=== PATIENT | male | born 1950 | race Caucasian/White ===

== ENCOUNTER → 2016-09-06 | Outpatient (CLI) | payer MEDICARE ==
[~2016-09-06] MED LIST: ALBU2.5V4 INH; ALPR0.5T7 PO; ALPR0.5T72 PO; ASPI325T32 PO; BENZ100C23 PO; CICL6.6S5 TP; ENOX40DI8 SC; FAMO20TA5 PO; FLUT16SP22 NS; GABA-486 PO; GABA-490 PO; GABA600T2 PO; GEMF600T3 PO; GLYB2.5T4 PO; HYDR1TAB PO; HYDR1TAB85 PO; INSU100V16 SC; INSU100V5 SQ; LACT20SO2 PO; LANS15CA5 PO; LISI-556 PO; LORA10TA7 PO; METF500T4 PO; METO-333 PO; MONT10TA24 PO; PARO20TA5 PO; PARO20TA57 PO; PNT40TEC PO; POTA20TA8 PO; TRAM50TA2 PO
--- NOTE | 2016-09-06 17:28 | Diagnostic Imaging Report ---
EXAMINATION: Bilateral ankle radiographs, three views on each side performed. INDICATION: Fall. Swelling in the right ankle. FINDINGS: The left ankle demonstrates no fracture, dislocation, or radiopaque foreign body. There is significant joint space narrowing seen, compatible with osteoarthritis, perhaps secondary to prior injury or insult. No acute process. The right ankle demonstrates mild degenerative changes. No acute fractures. Preserved configuration of the ankle mortise is seen. Calcaneal spurs are stenosis. IMPRESSION: Bilateral degenerative changes, severe on the left and [id number] on the right side. Correlate for possible prior injury or other insults. Dictated by: Dictated on workstation # [id number]
--- NOTE | 2016-09-06 17:35 | Diagnostic Imaging Report ---
Bilateral knee radiographs. Total six views obtained. INDICATION: Bilateral knee pain. COMPARISON: Right knee of 12/05/2015 and left knee of 12/05/2015 are also obtained. FINDINGS: There has been revision of the total knee arthroplasty on both sides. The left knee demonstrates good alignment of the arthroplasty components. No acute fracture is evident. The patella is absent. There is soft tissue fullness around the left knee. The right knee demonstrates good alignment of the prosthesis with no acute fracture. The patella demonstrates sclerotic changes. Slight suprapatellar fullness could be related to effusion is noted. There is background osteopenia seen in the knees bilaterally. IMPRESSION: Soft tissue fullness around the knees. No acute fracture. Dictated by: Dictated on workstation # [id number]
== END ==
LOC: RAD 13:31
PROVIDERS: ATTEND Registered Nurse
DX: M25.562 Pain in left knee (principal); M25.561 Pain in right knee; M19.071 Primary osteoarthritis, right ankle and foot; M19.072 Primary osteoarthritis, left ankle and foot; X58.XXXA Exposure to other specified factors, initial encounter

== ENCOUNTER → 2016-09-28 | Outpatient (CLI) | payer MEDICARE ==
[2016-09-28 13:49] LABS: ALANINE AMINOTRANSFERASE 13 U/L (0-55); ALBUMIN 4.2 GM/DL (3.2-4.5); ANION GAP 10 MMOL/L (5-14); ASPARTATE AMINO TRANSFERASE 17 U/L (5-34); BILIRUBIN,TOTAL 1.1 MG/DL (0.1-1.0); BLOOD UREA NITROGEN 20 MG/DL (7-18); BUN/CREATININE RATIO 19; CALCIUM 10.1 MG/DL (8.5-10.1); CARBON DIOXIDE 26 MMOL/L (21-32); CHLORIDE 102 MMOL/L (98-107); CHOLESTEROL 200 MG/DL (< 200); CREATININE SERUM 1.06 MG/DL (0.60-1.30); DIRECT LDL 141 MG/DL (1-129); GFR ESTIMATED > 60; GLUCOSE 101 MG/DL (70-105); POTASSIUM 4.7 MMOL/L (3.6-5.0); SODIUM 138 MMOL/L (135-145); TOTAL PROTEIN 8.3 GM/DL (6.4-8.2); TRIGLYCERIDES 116 MG/DL (<150); VLDL CHOLESTEROL 23 MG/DL (5-40)
[2016-09-28 14:08] LABS: MEAN CORPUSCULAR HEMOGLOBIN 31 PG (25-34); MEAN CORPUSCULAR HGB CONC 33 G/DL (32-36); MEAN CORPUSCULAR VOLUME 94 FL (80-99); MEAN PLATELET VOLUME 10.4 FL (7.4-10.4); PLATELET COUNT 387 10^3/uL (130-400); RED BLOOD COUNT 4.02 10^6/uL (4.35-5.85); WHITE BLOOD COUNT 4.8 10^3/uL (4.3-11.0)
[2016-09-28 14:09] LABS: BASOPHILS % (AUTO) 1 % (0-10); EOSINOPHILS # (AUTO) 0.1 10^3/uL (0.0-0.3); EOSINOPHILS % (AUTO) 2 % (0-10); LYMPHOCYTES # (AUTO) 1.4 X 10^3 (1.0-4.0); LYMPHOCYTES % (AUTO) 29 % (12-44); MONOCYTES # (AUTO) 0.4 X 10^3 (0.0-1.0); MONOCYTES % (AUTO) 9 % (0-12); NEUTROPHILS # (AUTO) 2.8 X 10^3 (1.8-7.8); NEUTROPHILS % (AUTO) 59 % (42-75); THYROID STIMULATING HORMONE 1.73 UIU/ML (0.35-4.94)
== END ==
LOC: LAB 12:54
PROVIDERS: ATTEND Family Medicine
DX: I10 Essential (primary) hypertension (principal); E11.9 Type 2 diabetes mellitus without complications; E78.00 Pure hypercholesterolemia, unspecified; D64.9 Anemia, unspecified
CPT/HCPCS: 36415; 80053; 80061; 83036; 84443; 85025

== ENCOUNTER → 2019-03-02 | Outpatient (CLI) | payer MEDICARE ==
[~2019-03-02] MED LIST changes: +BENZ-36 PO; -BENZ100C23 PO; -GEMF600T3 PO; +GEMF600T8 PO; +METF-397 PO; -METF500T4 PO; -TRAM50TA2 PO; +TRM50T PO
== END ==
LOC: CARD 09:57
PROVIDERS: ATTEND Nurse Practitioner Family
DX: I51.7 Cardiomegaly (principal)
CPT/HCPCS: 93306

== ENCOUNTER → 2019-04-13 | Outpatient (CLI) | payer MEDICARE ==
[~2019-04-13] VITALS: Ht 190 cm; Wt 132.0 kg
[~2019-04-13] MED LIST changes: +CATHETER FLUSH 10 ML SYR IV PRN; +REGADENOSON 0.4 MG/5 ML SYR (LEXISCAN) IV ONE
[2019-04-13 09:09] VITALS: BP 133/88
--- NOTE | 2019-04-13 14:52 | STRESS TEST ---
DATE OF SERVICE: 04/13/2019 LEXISCAN MYOVIEW STRESS TEST REPORT REFERRING PHYSICIAN: Dr. Keen. Baseline heart rate is 89, baseline blood pressure 133/88. Baseline EKG is sinus rhythm with left bundle branch block. In summary, the patient was injected with 10.86 mCi of technetium-99 Myoview and the resting images were obtained. Then, the patient received 0.4 mg of Lexiscan followed by 29.8 mCi of technetium-99 Myoview. Throughout the test, there were no EKG changes. The resting and stress images were reviewed and compared in the short axis, horizontal long axis, and vertical long axis views. Review of the images showed fixed defect involving the whole inferior wall, inferior apex, true apex and anteroapical segment. SSS is 43, SDS 5, TID value 1.14. On the gated images, the left ventricle is dilated with diffuse left ventricular hypokinesia, dyskinesia of the apex. Calculated ejection fraction 20%. CONCLUSION: 1. The patient tolerated Lexiscan well. 2. Total infarction of the whole apex, inferior wall, inferoapical segment and anterior apex with no significant reversibility. 3. Dilated left ventricle with diffuse left ventricular hypokinesia, dyskinesia of the apex, calculated ejection fraction 20%. 4. Consider viability study. Job ID: [id number] DocumentID: [id number] Dictated Date: 04/13/2019 12:31:52 Manager Of Construction Date: 04/13/2019 14:52:20 Dictated By: CATALINA ZIMMERMAN MD
== END ==
LOC: CARD 06:55
PROVIDERS: ATTEND Internal Medicine Cardiovascular Disease
DX: I21.9 Acute myocardial infarction, unspecified (principal); I11.0 Hypertensive heart disease with heart failure; I50.9 Heart failure, unspecified; E78.2 Mixed hyperlipidemia; E11.9 Type 2 diabetes mellitus without complications; I25.10 Atherosclerotic heart disease of native coronary artery without angina pectoris
CPT/HCPCS: 78452; 93017

== ENCOUNTER → 2019-04-23 | Outpatient (CLI) | payer MEDICARE ==
[~2019-04-23] MED LIST changes: -REGADENOSON 0.4 MG/5 ML SYR (LEXISCAN) IV ONE
--- NOTE | 2019-04-27 13:54 | STRESS TEST ---
DATE OF SERVICE: 04/23/2019 RESTING AND REDISTRIBUTION STUDY AND VIABILITY STUDY In summary, the patient was injected with 3.21 mCi of thallium-201 and the resting images were obtained, returned 24 hour later with a second injection of 1.07 mCi of thallium-201 and the redistribution study was done. Resting and redistribution study were evaluated and reviewed in three projections. Review of the images showed total infarction of the mid to apical inferior wall, true apex and inferolateral wall with no significant viability. CONCLUSION: Total infarction of the inferior wall, inferior apex, true apex and inferolateral wall with no significant viability. Job ID: [id number] DocumentID: [id number] Dictated Date: 04/27/2019 11:13:05 Fire Sprinkler Inspector Date: 04/27/2019 11:49:04 Dictated By: CATALINA ZIMMERMAN MD
== END ==
LOC: CARD 08:18
PROVIDERS: ATTEND Internal Medicine Cardiovascular Disease
DX: I21.9 Acute myocardial infarction, unspecified (principal); I11.0 Hypertensive heart disease with heart failure; I50.43 Acute on chronic combined systolic (congestive) and diastolic (congestive) heart failure; E11.9 Type 2 diabetes mellitus without complications
CPT/HCPCS: 78452; 93017

== ENCOUNTER 2019-05-06 07:16 | Day surgery (SDC) | payer MEDICARE ==
[2019-05-06] VITALS (10 sets, daily range): BP systolic 100–121; BP diastolic 55–97
[~2019-05-06] VITALS: Ht 190.5 cm; Wt 123.0 kg
[~2019-05-06 07:16] MED LIST changes: -CATHETER FLUSH 10 ML SYR IV PRN
[2019-05-06] MEDS ORDERED: HEParin (CATH LAB) 2,000 ML IV ONE (07:39)
[2019-05-06] MEDS ORDERED: NS IV 1000 ML 1,000 ML ONE (07:39)
[2019-05-06] MEDS ORDERED: LIDOCAINE 1% INJ 20 ML 20 ML VIAL ONE (07:39)
[2019-05-06] MEDS ORDERED: NS IV 1000 ML 1,000 ML IV SCH ×2 (08:45→11:09)
[2019-05-06 08:56] LABS: HEMOGLOBIN 10.9 G/DL (13.3-17.7); RED CELL DISTRIBUTION WIDTH 16.5 % (10.0-14.5)
--- NOTE | 2019-05-06 09:01 | Diagnostic Imaging Report ---
INDICATION: Heart disease. Comparison made with prior examination 10/24/2015 FINDINGS: There is cardiomegaly. The mediastinum is unremarkable. There is no pleural effusion, pneumothorax or pneumonia. IMPRESSION: Cardiomegaly. No acute cardiopulmonary abnormality.. Dictated by: Dictated on workstation # [id number]
[2019-05-06 09:09] LABS: INR 1.2 (0.8-1.4); PROTHROMBIN TIME PATIENT 15.7 SEC (12.2-14.7)
[2019-05-06 09:16] LABS: ALANINE AMINOTRANSFERASE 30 U/L (0-55); ALBUMIN 4.7 GM/DL (3.2-4.5); ALKALINE PHOSPHATASE 81 U/L (40-136); BILIRUBIN,TOTAL 2.3 MG/DL (0.1-1.0); BUN/CREATININE RATIO 16; CALCIUM 9.3 MG/DL (8.5-10.1); CARBON DIOXIDE 27 MMOL/L (21-32); CHLORIDE 105 MMOL/L (98-107); CHOLESTEROL 141 MG/DL (< 200); CREATININE SERUM 1.34 MG/DL (0.60-1.30); GFR ESTIMATED 53; GLUCOSE 109 MG/DL (70-105); HDL CHOLESTEROL 44 MG/DL (40-60); POTASSIUM 4.4 MMOL/L (3.6-5.0); SODIUM 141 MMOL/L (135-145); TOTAL PROTEIN 8.1 GM/DL (6.4-8.2); TRIGLYCERIDES 68 MG/DL (<150); VLDL CHOLESTEROL 14 MG/DL (5-40)
[2019-05-06] MEDS ORDERED: MTP25TSR PO (09:29)
[2019-05-06] MEDS ORDERED: PARO40TA3 PO (09:29)
[2019-05-06] MEDS ORDERED: LANS15CA21 PO (09:29)
[2019-05-06] MEDS ORDERED: SIMV10TA26 PO (09:29)
[2019-05-06] MEDS ORDERED: POTA10TA36 PO (09:29)
[2019-05-06] MEDS ORDERED: METF-399 PO ×2 (09:29→11:10)
[2019-05-06] MEDS ORDERED: GABA-488 PO (09:29)
[2019-05-06] MEDS ORDERED: DIPH25TA65 PO (09:29)
[2019-05-06] MEDS ORDERED: GLUC1TAB20 PO (09:29)
[2019-05-06] MEDS ORDERED: ASPI-983 PO (09:29)
[2019-05-06] MEDS ORDERED: FURO-124 PO (09:29)
[2019-05-06] MEDS ORDERED: CETI10TA20 PO (09:29)
[2019-05-06] MEDS ORDERED: ACET-2267 PO (09:29)
[2019-05-06] MEDS ORDERED: LOSA50TA63 PO (09:29)
[2019-05-06] MEDS ORDERED: METO-333 PO (09:52)
[2019-05-06] MEDS ORDERED: HEParin 1000 UNIT/ML (10ML VIAL) FOR BOLUS ONE (10:15)
[2019-05-06] MEDS ORDERED: VERAPAMIL 5 MG/2 ML (CALAN) VIAL IV ONE (10:15)
[2019-05-06] MEDS ORDERED: MIDAZOLAM 5 MG/5 ML (VERSED) VIAL ONE (10:15)
[2019-05-06] MEDS ORDERED: fentaNYL INJECTION 100 MCG/2 ML AMP ONE (10:15)
[2019-05-06] MEDS ORDERED: NITRO DRIP 25000 MCG/D5W 250 ML IV ONE (10:16)
--- NOTE | 2019-05-06 11:11 | Discharge Inst-Post CATH ---
Discharge Inst-CATH/EP Problems Reviewed?: Yes Post Cardiac Cath/EP D/C Inst Follow Up/Plan appointment with Dr. Noel's office in 2 weeks <b>CARDIAC CATH/EP PROCEDURE DISCHARGE INSTRUCTIONS</b> ACTIVITY * Go Home directly and rest. * Limit activity of the leg (or wrist if it was used) for 7 days including aerobics, swimming, jogging, bicycling, etc. * Restrict stair-climbing for 7 days if possible, if not, climb up with your non-cath leg, then bring together on the same step. * Avoid lifting, pushing, pulling or excessive movement of the affected extremity for 7 days. * Customary sexual activity may be resumed after 2 days-use caution not to use a position that strains or causes pain to the affected extremity. * No driving for 24 hours. * NO SMOKING. * Avoid straining for bowel movements for 7 days. * Gentle walking on level ground is allowed. * Returning to work will depend on the type of procedure and the results. Your doctor will discuss this with you. CALL YOUR DOCTOR FOR ANY OF THE FOLLOWING: *If bleeding from the puncture site occurs- Apply gentle pressure to site with clean cloth and call your doctor or EMS. * If a knot or lump forms under the skin, increases in size, or causes pain. * If bruising appears to be worsening or moving further down your leg instead of disappearing. * Temperature above 101 F. CARE OF YOUR GROIN INCISION; * Bruising or purple discoloration of the skin near the puncture site is common. * You may shower only, no bathtub bathing for 5 days. Be careful to avoid slipping as your leg may feel stiff. * If a closure device was used on your femoral artery, please see the attached guide regarding care of the device and your leg. * Leave dressing on FOR 24 hours. CARE OF YOUR WRIST INCISION; * Bruising or purple discoloration of the skin near the puncture site is common. * You may shower. * DO NOT submerge wrist. * Leave dressing on FOR 24 hours. CATALINA NOEL MD May 06, 2019 11:11
--- NOTE | 2019-05-06 11:14 | Cardiac Procedure Note-CS/ASA ---
Pre-Procedure Note Pre-Op Procedure Note H&P Reviewed The H&P was reviewed, patient examined and no changes noted. Date H&P Reviewed: May 06, 2019 Time H&P Reviewed: 10:00 Conscious Sedation Pre-Proced Time 10:00 ASA Score 3 For ASA 3 and 4: Consider anesthesia and medical clearance. Also, for patients with a history of failed moderate sedation consider anesthesia. Airway Lungs Heart ASA score ASA 1: a normal healthy patient ASA 2: a patient with a mild systemic disease (mid diabetes, controlled hypertension, obesity x ASA 3: a patient with a severe systemic disease that limits activity (angina, COPD, prior Myocardial infarction) ASA 4: a patient with an incapacitating disease that is a constant threat to life (CHF, renal failure) ASA 5: a moribund patient not expected to survive 24 hrs. (ruptured aneurysm) ASA 6: a declared brain- patient whose organs are being harvested. For emergent operations, add the letter E after the classification Mallampati Classification Grade 3 Sedation Plan Analgesia, Amnesia, Plan communicated to team members, Discussed options with patient/fam, Discussed risks with patient/fam The patient is an appropriate candidate to undergo the planned procedure, sedation, and anesthesia. The patient immediately re-assessed prior to indication. CATALINA ZIMMERMAN MD May 06, 2019 11:14
[2019-05-06] MEDS ORDERED: PARO20TA5 PO (11:34)
--- NOTE | 2019-05-06 11:35 | NUR ---
SPOKE WITH THE PT (HE HAD A MED LIST) WELL GETTING A LIST FROM [facility] TO COMPLETE THE MED REC. THE FOLLOWING ARE FILL DATES FROM [facility]: 02-08-2019 SIMVASTATIN 10MG #90/90DS 02-09-2019 PAROXETINE 20MG #90/90DS 03-09-2019 METOPROLOL TART #45/90DS 04-02-2019 GABAPENTIN 300MG #270/90DS 04-22-2019 METFORMIN 1000NG #60/30DS 04-22-2019 LOSARTAN 50MG #30/30DS 04-27-2019 LASIX 40MG #30/30DS 04-27-2019 POTASSIUM CHL 10MG ER #60/30DS OTC MEDS: ASPIRIN ZYRTEC BENADRYL PREVACID GLUCOSAMINE
--- NOTE | 2019-05-06 11:39 | Cardiac Cath Report ---
Cardiac Cath Report Physician (s)/Yard Truck Driver (s) Physician CATALINA ZIMMERMAN MD Pre-Procedure Diagnosis Pre-Procedure Diagnosis: coronary artery disease Post-Procedure Note Procedure Start Date: May 06, 2019 Name of Procedure: left heart catheterization Findings/Procedure Note PROCEDURE NOTE: 69-year-old gentleman with severe cardiomyopathy, ischemic in nature, had an abnormal stress test with total infarction of the inferior wall with no significant reversibility or viability. Due to the severe cardiomyopathy I decided to proceed with cardiac catheterization possible PTCA. After explaining the procedure to the patient, all pros and cons were explained, all questions were answered. The patient signed the consent and then he was placed on the cardiac catheterization laboratory. Groin was prepped SL fashion local anesthesia was used. Sheath placed in the right radial artery, [place] catheter was advanced to the left ventricular cavity, pulled back and did coronary angiogram then it was removed At the end of the procedure the sheath was removed. vascular band was used FINDINGS: Hemodynamics LV 101/26, end-diastolic pressure of 26 Aorta 96/61 and mean of 75 ANATOMY: Left Main has moderate stenosis proximally Left Anterior Descending is heavily calcified and totally occluded proximally Left Circumflex is large dominant artery with 60-70 percent stenosis at the midportion giving collaterals to the LAD and to the right coronary artery Right Coronory Artery is large dominant artery totally occluded proximally getting filled by collaterals from the circumflex system LV Gram was not done, pressure was measured CONCLUSION: 1. Total occlusion of the LAD, heavily calcified artery not getting much collaterals 2. Total occlusion of the large dominant right coronary artery that is getting filled by collaterals from the circumflex system 3. Moderate stenosis at the ostial left main, 60-70 percent stenosis in the mid circumflex artery that is large artery giving collaterals to the right coronary system DISCUSSION AND RECOMMENDATION: maximize medical therapy then I will arrange for him to have evaluation at a tertiary care center for possible MAINTENANCE AND CUSTODIAN SUPERVISOR intervention on the right coronary artery to provide sufficient backup and intervention on the circumflex artery in addition to maximizing medical therapy Anesthesia Type: Conscious Sedation Estimated blood loss (mL): 20 ml Contrast Amount: 78 ml Total Radiation Dose: 940 mGy Post-Procedure Diagnosis Post-operative diagnosis: congestive heart failure, chronic compensated left ventricular systolic dysfunction, ischemic cardiomyopathy Coronary artery disease Hypertension Hyperlipidemia CATALINA ZIMMERMAN MD May 06, 2019 11:38
== END 2019-05-06 15:10 | disposition home or self-care (01) ==
LOC: CATH 07:16 → CSD 11:32 → CATH 15:10
PROVIDERS: ATTEND Internal Medicine Cardiovascular Disease
DX: I25.10 Atherosclerotic heart disease of native coronary artery without angina pectoris (principal); I65.23 Occlusion and stenosis of bilateral carotid arteries; I50.22 Chronic systolic (congestive) heart failure; I25.2 Old myocardial infarction; I11.0 Hypertensive heart disease with heart failure; E78.2 Mixed hyperlipidemia; E11.9 Type 2 diabetes mellitus without complications; Z88.8 Allergy status to other drugs, medicaments and biological substances; Z79.82 Long term (current) use of aspirin; Z79.84 Long term (current) use of oral hypoglycemic drugs; Z79.899 Other long term (current) drug therapy
CPT/HCPCS: 36415; 71045; 80053; 80061; 85027; 85610; 85730; 87081; 93458

== ENCOUNTER → 2019-05-21 | Outpatient (CLI) | payer MEDICARE ==
[~2019-05-21] MED LIST changes: +ACET-2267 PO; +ASPI-983 PO; +CETI10TA21 PO; +DIPH25TA65 PO; +FURO-124 PO; +GABA-488 PO; +GLUC1TAB20 PO; +LANS15CA21 PO; +LOSA50TA63 PO; +METF-399 PO; -MONT10TA24 PO; +MONT10TA26 PO; +MTP25TSR PO; +PARO40TA3 PO; +POTA10TA36 PO; +SIMV10TA26 PO
== END ==
LOC: CARD 07:36
PROVIDERS: ATTEND Internal Medicine Cardiovascular Disease
DX: I08.1 Rheumatic disorders of both mitral and tricuspid valves (principal); E78.2 Mixed hyperlipidemia; I11.0 Hypertensive heart disease with heart failure; E11.9 Type 2 diabetes mellitus without complications; I25.10 Atherosclerotic heart disease of native coronary artery without angina pectoris; I50.9 Heart failure, unspecified
CPT/HCPCS: 93306

== ENCOUNTER → 2019-06-22 | Outpatient (CLI) | payer MEDICARE | LOC: CARD 09:36 | PROVIDERS: ATTEND Physician Assistant | DX: I25.10 Atherosclerotic heart disease of native coronary artery without angina pectoris (principal); I11.0 Hypertensive heart disease with heart failure; I50.22 Chronic systolic (congestive) heart failure; E11.9 Type 2 diabetes mellitus without complications; E78.2 Mixed hyperlipidemia; I07.1 Rheumatic tricuspid insufficiency | CPT/HCPCS: 93306 ==

== ENCOUNTER → 2019-08-13 | Outpatient (CLI) | payer MEDICARE | LOC: CARD 12:31 | PROVIDERS: ATTEND Internal Medicine Cardiovascular Disease | DX: I50.22 Chronic systolic (congestive) heart failure (principal); I34.0 Nonrheumatic mitral (valve) insufficiency | CPT/HCPCS: 93306 ==

== ENCOUNTER → 2019-08-19 | Outpatient (CLI) | payer MEDICARE | LOC: LABNPT 09:03 | PROVIDERS: ATTEND Physician Assistant | DX: Z01.812 Encounter for preprocedural laboratory examination (principal); Z11.59 Encounter for screening for other viral diseases ==

== ENCOUNTER 2019-08-26 07:03 | Day surgery (SDC) | payer MEDICARE ==
[2019-08-26] VITALS (13 sets, daily range): BP systolic 92–117; BP diastolic 54–76
[~2019-08-26] VITALS: Ht 190.5 cm; Wt 115.9 kg
--- OUTSIDE RECORDS SUMMARY | 2019-08-26 07:07 | XMS REPORT | Clinical Summary ---
Author Author [facility] Organization [facility] Address Unknown Phone Unavailable Care Team Providers Care Prepared Foods Service Team Member Name Role Phone Nhan Keen MD PCP Source Comments Some departments are not documenting in the electronic medical record. If you d o not see the information that you expected, contact Release of Information in doctors hospital [facility] Information Management department at [phone] for further assistan ce in locating additional records.[facility] Allergies Comments Active Allergy Reactions Severity Noted Date Rash all over body - sand paper like red rash started 2 days after taking doxycycline and resolved w/ discontinuing . No anaphylaxis. Doxycycline RASH Medium 05/18/2016 Medications End Date Status Medication Sig Dispensed Refills Start Date Active gabapentin (NEURONTIN) Take 100 mg 0 100 mg capsule by mouth three times daily. Active cetirizine (ZYRTEC) 10 mg Take 10 mg by 0 tablet mouth every morning. Active metoprolol XL (TOPROL XL) Take 12.5 mg 0 25 mg extended release by mouth at tablet bedtime daily. Active PARoxetine (PAXIL) 20 mg Take 20 mg by 0 tablet mouth daily. Active potassium chloride SR Take 10 mEq 0 (K-DUR) 10 mEq tablet by mouth daily. Take with a meal and a full glass of water. Active gemfibrozil (LOPID) 600 Take 600 mg 0 mg tablet by mouth twice daily. Active ALPRAZolam (XANAX) 0.5 mg Take 0.5 mg 0 tablet by mouth twice daily as needed for Anxiety. Active ferrous sulfate (FEOSOL, Take 325 mg 0 FEROSUL) 325 mg (65 mg by mouth iron) tablet daily. Take on an empty stomach at least 1 hour before or 2 hours after food. Active lansoprazole(+) DR Take 15 mg by 0 (PREVACID) 15 mg capsule mouth daily 30 minutes before breakfast. Active lisinopril (PRINIVIL; Take 5 mg by 0 ZESTRIL) 5 mg tablet mouth daily. Active docusate (COLACE) 100 mg Take 1 Cap by 180 Cap 3 capsule mouth twice 6 daily. Use while taking pain medications. Hold if you are having loose stools Active acetaminophen (TYLENOL) Take 325 mg 0 325 mg tablet by mouth every 4 hours as needed for Pain. Active aspirin EC 325 mg tablet Take 1 Tab by 90 Tab 3 mouth daily. 7 Hold until off lovenox injections Take with food. Active Lactobacillus rhamnosus Take 1 Cap by 0 GG (LACTOBACILLUS mouth as RHAMNOSUS (GG)) 15 directed billion cell cpSP daily with breakfast. Active metFORMIN (GLUCOPHAGE) Take 1,000 mg 0 1,000 mg tablet by mouth twice daily with meals. Active nystatin (MYCOSTATIN) Apply 0 100,000 unit/g topical topically to cream affected area twice daily. 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 Immunizations Name Administration Dates Next Due Pneumococcal 04/23/2016 Vaccine(13-[facility]/immunocompromised adult) Family History Medical History Relation Name Comments Cancer Father Arthritis-rheumatoid Mother Stroke Mother Relation Name Status Comments Brother Alive Brother Father Mother Sister Alive Social History Date Tobacco Use Types Packs/Day Years Used Quit: 12/08/1982 Former Smoker 1 15 Smokeless Tobacco: Former Chew User Tobacco Cessation: Counseling Given: Yes Comments: chewed for 2 years after he quit smoking Drinks/Week oz/Week Comments Alcohol Use 0 Standard drinks or equivalent 0.0 rarely Yes Sex Assigned at Date Recorded Not on file Industry Job Start Date Occupation Not on file Not on file Not on file Travel End Travel History Travel Start No recent travel history available. Last Filed Vital Signs Reading Time Taken Comments Vital Sign 115/77 09/21/2016 9:43 AM CDT Blood Pressure 78 09/21/2016 9:43 AM CDT Pulse 36.6 C (97.9 F) 07/07/2016 5:12 AM CDT Temperature 16 08/21/2016 1:05 PM CDT Respiratory Rate 100% 08/21/2016 1:05 PM CDT Oxygen Saturation - - Inhaled Oxygen Concentration 101.6 kg (224 lb) 09/21/2016 9:43 AM CDT Weight 190.5 cm (6' 3") 09/21/2016 9:43 AM CDT Height 28 09/21/2016 9:43 AM CDT Body Mass Index Plan of Treatment Health Maintenance Due Date Last Done Comments MEDICARE ANNUAL WELLNESS 1950 VISIT DILATED EYE EXAM 01/13/1966 DTAP/TDAP VACCINES (1 - 01/13/1966 Tdap) FOOT EXAM 01/13/1966 HEPATITIS C SCREENING 01/13/1966 MICROALBUMIN 01/13/1966 PHYSICAL (COMPREHENSIVE) 01/13/1966 EXAM COLORECTAL CANCER 01/13/1998 SCREENING SHINGLES RECOMBINANT 01/13/1998 VACCINE (1 of 2) ABDOMINAL AORTIC ANEURYSM 01/13/2013 SCREENING HBA1C 10/04/2016 04/06/2016, 02/10/2016, 12/09/2015 PNEUMONIA (PPSV23) 04/23/2017 04/23/2016 VACCINE (2 of 2 - PPSV23) INFLUENZA VACCINE 12/24/2019 Implants Device Identifier Shelf Expiration Date Model / Serial / L ot Implanted Type Area Manufactur er 07/22/2017 [id number] / [id number] / [id number] Cement Bone Smartset Gentamicin Left: Knee J and J 40gm High Viscosity HEALTHCARE Implanted: Qty: 4 on 12/13/2015 by : Derian Childs MD at [facility] 07/22/2017 [id number] / [id number] / [id number] Cement Bone Smartset Gentamicin Right: Knee J and J 40gm High Viscosity HEALTHCARE Implanted: Qty: 4 on 12/13/2015 by : Derian Childs MD at [facility] 06/22/2020 [id number] / SEAN / [id number] Component Femoral 74x56.3x11.5mm Left: Knee OSTE OREMED Remedy Gentamicin Pmma [employer] Implanted: Qty: 1 on 12/13/2015 by Derian Tabares MD at [facility] 06/22/2020 RKTBLG / [id number] / [id number] Component Tibial [id number] 14mm Left: Knee OSTE OREMED Remedy Gentamicin Pmma 8.8 [employer] Implanted: Qty: 1 on 12/13/2015 by Derian Tabares MD at [facility] RKFMLG / [id number] / [id number] Component Femoral 74x56.3x11.5mm Right: Knee OSTE OREMED Remedy Gentamicin [employer] Implanted: Qty: 1 on 12/13/2015 by Derian Tabares MD at [facility] 06/22/2020 RKTBLG / [id number] / [id number] Component Tibial [id number] 14mm Right: Knee OSTE OREMED Remedy Gentamicin Pmma 8.8 [employer] Implanted: Qty: 1 on 12/13/2015 by Derian Tabares MD at [facility] 05/22/2025 [id number] / N/A / [id number] Stem Femoral 75mm 24mm Press Fit Right: Knee DEPU Y [place] Flute Knee [employer] Implanted: Qty: 1 on 04/20/2016 by Derian Tabares MD at [facility] 02/21/2026 [id number] / N/A / [id number] Sleeve Tibial 53mm Mbt Knee Porous Right: Knee Ja ndJ:DEPU Revision Y:DEPUY Implanted: Qty: 1 on 04/20/2016 by ORTHOPEDIC Derian Tabares MD at [facility] 11/22/2025 [id number] / N/A / [id number] Tray Tibial 80.6x53.1x4.8mm Mbt 5 Right: Knee [place] dJ:DEPU Knee Cemented Revision Y:DEPUY Implanted: Qty: 1 on 04/20/2016 by ORTHOPEDIC Derian Tabares MD at [facility] 01/22/2026 [id number] / N/A / [id number] Sleeve Adapter 46mm [place] Knee Right: Knee Ja ndJ:DEPU Femoral Fully Porous Vvc Y:DEPUY Implanted: Qty: 1 on 04/20/2016 by ORTHOPEDIC Derian Tabares MD at [facility] 10/22/2017 [id number] / N/A / [id number] Insert Tibial Medium [place] 21mm Right: Knee J andJ:DEPU Knee Hinge Lps Y:DEPUY Implanted: Qty: 1 on 04/20/2016 by ORTHOPEDIC Derian Tabares MD at [facility] 12/22/2017 [id number] / N/A / [id number] Cement Bone Smartset Gentamicin Right: Knee J and J 40 High Viscosity HEALTHCARE Implanted: Qty: 3 on 04/20/2016 by : Derian Childs MD at [facility] 09/21/2020 [id number] / N/A / [id number] Femoral Rotating Hinge Cemented; Right: Knee Jand J:DEPU Right Medium Y:DEPUY Implanted: Qty: 1 on 04/20/2016 by ORTHOPEDIC Derian Tabares MD at [facility] 11/22/2021 [id number] / N/A / [id number] Stem Femoral 75mm 24mm Press Fit Right: Knee DEPU Y [place] Flute Knee [employer] Implanted: Qty: 1 on 04/20/2016 by Derian Tabares MD at [facility] 02/21/2018 [id number] / NA / [id number] Cement Bone Smartset Gentamicin Left: Knee J and J 40 High Viscosity HEALTHCARE Implanted: Qty: 3 on 06/14/2016 by : Derian Childs MD at [facility] 04/24/2026 [id number] / NA / [id number] Tray Tibial 74.9x49.3x4.8mm Mbt 4 Left: Knee [place] dJ:DEPU Knee Cemented Revision Y:DEPUY Implanted: Qty: 1 on 06/14/2016 by ORTHOPEDIC Derian Tabares MD at [facility] 01/22/2025 [id number] / NA / [id number] Sleeve Adapter 46mm [place] Knee Left: Knee Ja ndJ:DEPU Femoral Fully Porous Vvc Y:DEPUY Implanted: Qty: 1 on 06/14/2016 by ORTHOPEDIC Derian Tabares MD at [facility] 08/21/2018 [id number] / NA / [id number] Component Femoral 6d Medium [id number] Left: Knee D EPUY Knee Left Rotate Hinge [employer] Implanted: Qty: 1 on 06/14/2016 by Derian Tabares MD at [facility] 03/24/2026 [id number] / NA / [id number] Stem Femoral 75mm 24mm Press Fit Left: Knee DEPU Y [place] Flute Knee [employer] Implanted: Qty: 1 on 06/14/2016 by Derian Tabares MD at [facility] 03/24/2026 [id number] / NA / [id number] Stem Femoral 75mm 24mm Press Fit Left: Knee DEPU Y [place] Flute Knee [employer] Implanted: Qty: 1 on 06/14/2016 by Derian Tabares MD at [facility] 01/22/2026 [id number] / NA / [id number] Sleeve Tibial 53mm Mbt Knee Porous Left: Knee Ja ndJ:DEPU Revision Y:DEPUY Implanted: Qty: 1 on 06/14/2016 by ORTHOPEDIC Derian Tabares MD at [facility] 10/21/2018-312 / NA / [id number] Tibial Insert Hinge Medium 12mm Left: Knee Depuy Implanted: Qty: 1 on 06/14/2016 by Orthopedic Derian Tabares MD at [facility] Results Not on filefrom Last 3 Months Insurance Type Payer Benefit Subscriber ID Effective Phone Address Plan / Dates Group Medicare MEDICARE MEDICARE xxxxxxxxxx 2004- PART A AND Present B [facility] xxxxxxxxxx 06/18/2016 - [place] /[facility] [address] [facility] (Home) [facility] [place] [phone] Advance Directives Patient Family Service Counselor Explanation Type Date Recorded Perceptive Content Scan Advance 07/05/2016 12:49 PM Directive/DPOA Date Inactivated Comments Code Status Date Activated 07/07/2016 3:40 PM Full Code 07/05/2016 5:35 PM Provider has discussed Code Status No, more discussi on w/Patient or Family? needed 06/17/2016 1:26 PM Full Code 06/14/2016 8:25 PM Provider has discussed Code Status No, more discussi on w/Patient or Family? needed 04/23/2016 5:55 PM Full Code 04/20/2016 6:50 PM Provider has discussed Code Status No, discussion no t w/Patient or Family? necessary based on Dx 12/20/2015 2:56 PM Full Code 12/13/2015 4:32 PM Provider has discussed Code Status No, more discussi on w/Patient or Family? needed
--- OUTSIDE RECORDS SUMMARY | 2019-08-26 07:09 | XMS REPORT ---
Author Author Fernando MUÑOZ Organization [facility] Address [address] [place] [address] Care Team Providers Care Optician Apprentice Name Role Phone SHAYY MUÑOZ Unavailable PROBLEMS Type Condition ICD9-CM Code [id number] Code Onset Dates Condition S tatus SNOMED Code Problem Type 2 diabetes mellitus without complications E11 .9 Active 25333646 Problem 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 E78.2 Active 668110653 Problem Chronic osteomyelitis M86.60 Active 84823909 Problem Wheel chair as ambulatory aid Z99.3 Active 531397315 Problem Chronic pain syndrome G89.4 Active 575368275 Problem Essential hypertension I10 Active 75010374 Problem Status post total bilateral knee replacement Z96.6 53 Active [id number] Problem Incontinence of feces, unspecified fecal incontinence type R15.9 Active [id number] ALLERGIES No Information ENCOUNTERS Encounter Location Date Diagnosis [facility] [address] [facility] [id number] [address] [place] [phone] Oct, [facility] [address] [facility] [id number] [address] [place] [phone] Sep, Type 2 diabetes mellitus wit hout complications E11.9 ; 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 E78.2 ; Essential hypertension I10 and Incontinence of feces, unspecified fecal incontinence type R15.9 [facility] [address] [facility] [id number] [address] [place] [phone] Sep, [facility] [address] [facility] [id number] [address] [place] [phone] Aug, [facility] [address] [facility] [id number] [address] [place] [phone] Aug, [facility] [address] [facility] [id number] [address] [place] [phone] July, [facility] [address] [place] [id number] [address] [place] [phone] July, [facility] [address] [facility] [id number] [address] [place] [phone] July, [facility] [address] [facility] [id number] [address] [place] [phone] May, Type 2 diabetes mellitus wit hout complications E11.9 ; Chronic pain syndrome G89.4 ; Incontinence of feces, unspecified fecal incontinence type R15.9 and 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 E78.2 [facility] [address] [facility] [id number] [address] [place] [phone] May, [facility] [address] [place] [id number] [place] [phone] May, [facility] [address] [place] [id number] [place] [phone] Apr, [facility] [address] [place] [id number] [address] [place] [phone] Mar, [facility] [address] [place] [id number] [address] [place] [phone] Jan, 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 E78.2 ; Type 2 diabetes mellitus without complications E11.9 ; 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 and Essential hypertension I10 [place] [address] [place] [id number] [place] [phone] Dec, 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 E78.2 ; 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 ; Type 2 diabetes mellitus without complications E11.9 ; Essential hypertension I10 and Encounter for immunization Z23 [facility] [address] [facility] [id number] [address] [place] [phone] Dec, [facility] [address] [place] [id number] [place] [phone] 10 May, 2016 Candidiasis of scrotum B37.4 9 [facility] [address] [place] [id number] [place] [phone] 07 May, 2016 Candidiasis of scrotum B37.4 9 [facility] [address] [facility] [id number] [address] [place] [address] May, Tinea cruris B35.[address] [facility] hitis J40 IMMUNIZATIONS No Known Immunizations SOCIAL HISTORY Never Assessed REASON FOR VISIT repository PLAN OF CARE VITAL SIGNS MEDICATIONS Medication Instructions Dosage Frequency Start Date End Date Duration S tatus Metformin HCl 1000 MG Orally Twice a day 1 tablet with meals 12h 56 days Active RESULTS No Results PROCEDURES No Known procedures INSTRUCTIONS MEDICATIONS ADMINISTERED No Known Medications MEDICAL (GENERAL) HISTORY Type Description Date Medical History diabetes - does not check BS Medical History HTN Medical History osteoarthritis Medical History GERD Medical History Rheumatoid Arthritis Medical History hyperlipidemia Medical History Anxiety disorder Medical History depression Medical History obesity Medical History Chronic back pain Surgical History Bilateral Total Knee Replacements 2001 Surgical History Back Surgery 2001 Surgical History 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
--- OUTSIDE RECORDS SUMMARY | 2019-08-26 07:09 | XMS REPORT ---
Author Author Fernando MUÑOZ Organization [facility] Address [address] [place] [address] Care Team Providers Care Snuff Grinder And Screener Name Role Phone SHAYY MUÑOZ Unavailable PROBLEMS Type Condition ICD9-CM Code JUS65-EJ Code Onset Dates Condition S tatus SNOMED Code Problem Type 2 diabetes mellitus without complications E11 .9 Active 65534957 Problem 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 E78.2 Active 361077938 Problem Chronic osteomyelitis M86.60 Active 73747226 Problem Wheel chair as ambulatory aid Z99.3 Active 030324197 Problem Chronic pain syndrome G89.4 Active 139304627 Problem Essential hypertension I10 Active 30423192 Problem Status post total bilateral knee replacement Z96.6 53 Active 7029765902850 Problem Incontinence of feces, unspecified fecal incontinence type R15.9 Active 81998439 ALLERGIES No Information ENCOUNTERS Encounter Location Date Diagnosis [facility] [address] [facility] [id number] [address] [place] [phone] Oct, [facility] [address] [facility] [id number] [address] [place] [phone] Sep, Type 2 diabetes mellitus wit hout complications E11.9 ; 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 E78.2 ; Essential hypertension I10 and Incontinence of feces, unspecified fecal incontinence type R15.9 [facility] [address] [facility] [id number] [address] [place] [phone] Sep, [facility] [address] [facility] [id number] [address] [place] [phone] Aug, [facility] [address] [facility] [id number] [address] [place] [phone] Aug, [facility] [address] [facility] [id number] [address] [place] [phone] July, [facility] [address] [place] [id number] [address] [place] [phone] July, [facility] [address] [facility] [id number] [address] [place] [phone] July, [facility] [address] [facility] [id number] [address] [place] [phone] May, Type 2 diabetes mellitus wit hout complications E11.9 ; Chronic pain syndrome G89.4 ; Incontinence of feces, unspecified fecal incontinence type R15.9 and 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 E78.2 [facility] [address] [facility] [id number] [address] [place] [phone] May, [facility] [address] [place] [id number] [place] [phone] May, [facility] [address] [place] [id number] [place] [phone] Apr, [facility] [address] [place] [id number] [address] [place] [phone] Mar, [facility] [address] [place] [id number] [address] [place] [phone] Jan, 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 E78.2 ; Type 2 diabetes mellitus without complications E11.9 ; emt intermediate current use of insulin Z79.4 and Essential hypertension I10 [place] [address] [place] [id number] [place] [phone] Dec, 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 E78.2 ; emt intermediate current use of insulin Z79.4 ; Type 2 diabetes mellitus without complications E11.9 ; Essential hypertension I10 and Encounter for immunization Z23 [facility] [address] [facility] [id number] [address] [place] [phone] Dec, [facility] [address] [place] [id number] [place] [phone] 10 May, 2016 Candidiasis of scrotum B37.4 9 [facility] [address] [place] [id number] [place] [phone] 07 May, 2016 Candidiasis of scrotum B37.4 9 [facility] [address] [facility] [id number] [address] [place] [address] May, Tinea cruris B35.6 and [facility] hitis J40 IMMUNIZATIONS No Known Immunizations SOCIAL HISTORY Never Assessed REASON FOR VISIT medication refill PLAN OF CARE VITAL SIGNS MEDICATIONS Medication Instructions Dosage Frequency Start Date End Date Duration S tatus Lisinopril 5 mg Orally Once a day 1 tablet 24h 30 da ys Active RESULTS No Results PROCEDURES No Known [...]
--- OUTSIDE RECORDS SUMMARY | 2019-08-26 07:09 | XMS REPORT ---
Author Author Fernando MUÑOZ Organization [facility] Address [address] [place] [address] Care Team Providers Care Toxics Program Officer Name Role Phone SHAYY MUÑOZ Unavailable PROBLEMS Type Condition ICD9-CM Code QAL91-VE Code Onset Dates Condition S tatus SNOMED Code Problem Chronic pain syndrome G89.4 Active 747552045 Problem Incontinence of feces, unspecified fecal incontinence type R15.9 Active 54276242 Problem Status post total bilateral knee replacement Z96.6 53 Active 1170539351806 Problem Systolic CHF, chronic I50.22 Active 358973636 Problem BMI 38.0-38.9,adult Z68.38 Active 785524258 Problem Essential hypertension I10 Active 14993383 Problem Wheezes R06.2 Active 73052066 Problem 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 E78.2 Active 409855746 Problem Wheel chair as ambulatory aid Z99.3 Active 292135341 Problem Chronic osteomyelitis M86.60 Active 41866275 Problem Type 2 diabetes mellitus wit h other specified complication, without long-term current use of insulin E11.69 Active 06079190 Problem Symptoms of depression F32.9 Active 693213011 ALLERGIES No Information ENCOUNTERS Encounter Location Date Diagnosis [facility] [address] [id number] [place] [address] Apr, [facility] [address] [id number] [place] [address] Mar, [place] [address] [place] [address] Mar, Chronic cough R05 ; Systolic CHF, chronic I50.22 ; Essential hypertension I10 ; Wheel chair as ambulatory aid Z99.3 and BMI 38.0- 38.9,adult Z68.38 [facility] [address] [facility] [id number] [address] [place] [address] Feb, Cough R05 [place] [address] [address] Feb, Cough R05 and Atypical pneumonia J18.9 [place] [address] [address] Feb, [place] [address] [address] Feb, Symptoms of depression F32.9 [place] [address] [place] [address] Feb, Shortness of breath R06.02 ; Systolic CH F, chronic I50.22 ; Essential hypertension I10 and BMI 38.0-38.9,adult Z68.38 [place] [address] [address] Feb, [address] [id number] Feb, [place] [address] [address] Jan, Symptoms of depression F32.9 [place] [address] [address] Jan, Shortness of breath R06.02 ; Lower extre mity edema R60.0 ; Essential hypertension I10 and Type 2 diabetes mellitus with other specified complication, without long-term current use of insulin E11.69 [place] [address] [address] Jan, Essential hypertension I10 [place] [address] [address] Dec, Essential hypertension I10 and Type 2 di abetes mellitus with other specified complication, without long-term current use of insulin E11.69 [place] [address] [address] Dec, [place] [address] [address] Dec, [place] [address] [address] Nov, Type 2 diabetes mellitus with other spec ified complication, without long-term current use of insulin E11.69 and Encounter for immunization Z23 [place] [address] [address] Sep, Wound of left foot S91.302A [place] [address] [address] Sep, Wound of left foot S91.302A and Type 2 d iabetes mellitus with other specified complication, without long-term current use of insulin E11.69 [place] [address] [address] July, Cough R05 [place] [address] [address] July, [place] [address] [address] July, Type 2 diabetes mellitus with other spec ified complication, without long-term current use of insulin E11.69 ; 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 E78.2 and Left hand pain M79.642 [place] [address] [address] May, [place] [address] [address] Apr, [place] [address] [address] Apr, [place] [address] [address] Apr, [place] [address] [address] Mar, Chronic osteomyelitis M86.60 ; S/p total knee replacement, bilateral Z96.653 ; Incontinence of feces, unspecified fecal incontinence type R15.9 and Chronic pain syndrome G89.4 [place] [address] [address] Mar, [facility] [address] [place] [id number] [place] [address] Mar, [facility] [address] [address] Mar, [facility] [address] [place] [id number] [place] [address] Feb, Chronic osteomyelitis M86.60 ; Status po st total bilateral knee replacement Z96.653 ; Incontinence of feces, unspecified fecal incontinence type R15.9 and Chronic pain syndrome G89.4 [facility] [address] [address] Feb, [facility] [address] [address] Jan, Encounter for immunization Z23 [facility] [address] [address] Nov, [facility] [address] [address] Oct, [facility] [address] [address] Sep, Type 2 diabetes mellitus without complic ations E11.9 ; 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 E78.2 ; Essential hypertension I10 and Incontinence of feces, unspecified fecal incontinence type R15.9 [facility] [address] [address] Sep, [facility] [address] [address] Aug, [facility] [address] [address] Aug, [facility] [address] [address] July, [facility] [address] [address] July, [facility] [address] [address] July, [place] [address] [address] May, Type 2 diabetes mellitus without complic ations E11.9 ; Chronic pain syndrome G89.4 ; Incontinence of feces, unspecified fecal incontinence type R15.9 and 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 E78.2 [place] [address] [address] May, [place] [address] [address] May, [place] [address] [address] Apr, [place] [address] [address] Mar, [place] [address] [address] Jan, 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 E78.2 ; Type 2 diab etes mellitus without complications E11.9 ; emt intermediate current use of insulin Z79.4 and Essential hypertension I10 [place] [address] [address] Dec, 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 E78.2 ; 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 [address] [place] [id number] [address] [place] [address] May, Candidiasis of scrotum B37.[address] [facility] [address] [place] [phone] May, Candidiasis of scrotum B37.[address] [facility] [address] [place] [address] May, Tinea cruris B35.6 and [facility] hitis J40 IMMUNIZATIONS No Known Immunizations SOCIAL HISTORY Never Assessed REASON FOR VISIT Refill Request PLAN OF CARE VITAL SIGNS MEDICATIONS Medication Instructions Dosage Frequency Start Date End Date Duration S yesica Lisinopril 5 mg Orally Once a day 1 tablet 24h 90 da ys Active RESULTS No Results PROCEDURES No Known procedures INSTRUCTIONS MEDICATIONS ADMINISTERED No Known Medications MEDICAL (GENERAL) HISTORY Type Description Date Medical History diabetes - does not check BS Medical History HTN Medical History osteoarthritis Medical History GERD Medical History Rheumatoid Arthritis Medical History hyperlipidemia Medical History Anxiety disorder Medical History depression Medical History obesity Medical History Chronic back pain Medical History CHF Surgical History Bilateral Total Knee Replacements 2002 Surgical History Back Surgery 2001 Surgical History 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
--- OUTSIDE RECORDS SUMMARY | 2019-08-26 07:09 | XMS REPORT ---
Author Author Fernando MUÑOZ Organization [facility] Address [address] [place] [address] Care Team Providers Care Prepared Foods Service Team Member Name Role Phone SHAYY MUÑOZ Unavailable PROBLEMS Type Condition ICD9-CM Code CIC78-QO Code Onset Dates Condition S tatus SNOMED Code Problem Type 2 diabetes mellitus without complications E11 .9 Active 68434714 Problem 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 E78.2 Active 745322071 Problem Chronic osteomyelitis M86.60 Active 64098439 Problem Wheel chair as ambulatory aid Z99.3 Active 824255462 Problem Chronic pain syndrome G89.4 Active 118460331 Problem Essential hypertension I10 Active 73469136 Problem Status post total bilateral knee replacement Z96.6 53 Active 5110704432864 Problem Incontinence of feces, unspecified fecal incontinence type R15.9 Active 97682018 ALLERGIES No Information ENCOUNTERS Encounter Location Date Diagnosis [place] [address] [place] [address] Feb, [place] [address] [place] [id number] [place] [address] Feb, [place] [address] [place] [id number] [place] [address] Jan, Encounter for immunization Z 23 [place] [id number] [facility] [id number] [address] [place] [address] Nov, [place] [address] [place] [id number] [place] [address] Oct, [place] [address] [place] [id number] [place] [address] Sep, Type 2 diabetes mellitus wit hout complications E11.9 ; 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 E78.2 ; Essential hypertension I10 and Incontinence of feces, unspecified fecal incontinence type R15.9 [place] [address] [id number] [address] [place] [phone] Sep, [facility] [address] [id number] [address] [place] [phone] Aug, [facility] [address] [id number] [address] [place] [address] Aug, [facility] [address] [id number] [address] [place] [address] July, [facility] [address] [id number] [address] [place] [address] July, [facility] [address] [id number] [address] [place] [address] July, [facility] [address] [facility] [id number] [address] [place] [address] May, Type 2 diabetes mellitus wit hout complications E11.9 ; Chronic pain syndrome G89.4 ; Incontinence of feces, unspecified fecal incontinence type R15.9 and 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 E78.2 [facility] [address] [facility] [id number] [address] [place] [phone] May, [facility] [address] [facility] [id number] [address] [place] [address] May, [facility] [address] [id number] [address] [place] [address] Apr, [facility] [address] [id number] [address] [place] [phone] Mar, [facility] [address] [facility] [id number] [address] [place] [address] Jan, 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 E78.2 ; Type 2 diabetes mellitus without complications E11.9 ; intermediate current use of insulin Z79.4 and Essential hypertension I10 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 [address] [facility] [id number] [address] [place] [address] Dec, [facility] [address] [place] [id number] [place] [phone] 10 May, 2016 Candidiasis of scrotum B37.4 9 [facility] [address] [place] [address] May, Candidiasis of scrotum B37.4 9 [facility] [address] [facility] [id number] [address] [place] [address] May, Tinea cruris B35.6 and [facility] hitis J40 IMMUNIZATIONS No Known Immunizations SOCIAL HISTORY Never Assessed REASON FOR VISIT Eligibility PLAN OF CARE VITAL SIGNS MEDICATIONS Unknown Medications RESULTS No Results PROCEDURES No Known procedures [...]
--- OUTSIDE RECORDS SUMMARY | 2019-08-26 07:09 | XMS REPORT ---
Author Author Fernando MUÑOZ Organization [facility] Address [address] [place] [address] Care Team Providers Care Air Sampler Name Role Phone SHAYY MUÑOZ Unavailable PROBLEMS Type Condition ICD9-CM Code YGR76-CC Code Onset Dates Condition S tatus SNOMED Code Problem Type 2 diabetes mellitus without complications E11 .9 Active 39618948 Problem 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 E78.2 Active 064213838 Problem Chronic osteomyelitis M86.60 Active 24448672 Problem Wheel chair as ambulatory aid Z99.3 Active 756082183 Problem Chronic pain syndrome G89.4 Active 406187287 Problem Essential hypertension I10 Active 52331710 Problem Status post total bilateral knee replacement Z96.6 53 Active 7706082011132 Problem Incontinence of feces, unspecified fecal incontinence type R15.9 Active [id number] ALLERGIES No Information ENCOUNTERS Encounter Location Date Diagnosis [facility] [address] [facility] [id number] [address] [place] [phone] Oct, [facility] [address] [facility] [id number] [address] [phone] Sep, Type 2 diabetes mellitus wit hout complications E11.9 ; 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 E78.2 ; Essential hypertension I10 and Incontinence of feces, unspecified fecal incontinence type R15.9 [facility] [address] [facility] [id number] [address] [phone] Sep, [facility] [address] [facility] [id number] [address] [phone] Aug, [facility] [address] [facility] [id number] [address] [phone] Aug, [facility] [address] [facility] [id number] [address] [phone] July, [facility] [address] [place] [id number] [address] [phone] July, [facility] [address] [facility] [id number] [address] [place] [phone] July, [facility] [address] [facility] [id number] [address] [phone] May, Type 2 diabetes mellitus wit hout complications E11.9 ; Chronic pain syndrome G89.4 ; Incontinence of feces, unspecified fecal incontinence type R15.9 and 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 E78.2 [facility] [address] [facility] [id number] [address] [phone] May, [facility] [address] [place] [id number] [place] [phone] May, [facility] [address] [place] [id number] [place] [phone] Apr, [facility] [address] [place] [id number] [address] [place] [phone] Mar, [facility] [address] [place] [id number] [address] [phone] Jan, 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 E78.2 ; Type 2 diabetes mellitus without complications E11.9 ; 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 and Essential hypertension I10 [place] [address] [place] [id number] [place] [phone] Dec, 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 E78.2 ; 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 ; Type 2 diabetes mellitus without complications E11.9 ; Essential hypertension I10 and Encounter for immunization Z23 [facility] [address] [facility] [id number] [address] [place] [phone] Dec, [facility] [address] [place] [id number] [place] [phone] 10 May, 2016 Candidiasis of scrotum B37.4 9 [facility] [address] [place] [id number] [place] [phone] 07 May, 2016 Candidiasis of scrotum B37.4 9 [facility] [address] [facility] [id number] [address] [place] [address] May, Tinea cruris B35.6 and [facility] hitis J40 IMMUNIZATIONS No Known Immunizations SOCIAL HISTORY Never Assessed REASON FOR VISIT Refill request PLAN OF CARE VITAL SIGNS MEDICATIONS Medication Instructions Dosage Frequency Start Date End Date Duration S tatus Gemfibrozil 600 MG Orally Twice a day 1 tablet 12h Active RESULTS No Results PROCEDURES No Known [...]
--- OUTSIDE RECORDS SUMMARY | 2019-08-26 07:09 | XMS REPORT ---
Author Author Fernando MUÑOZ Organization [facility] Address [address] [place] [address] Care Team Providers Care Dianetic Counselor Name Role Phone SHAYY MUÑOZ Unavailable PROBLEMS Type Condition ICD9-CM Code OER48-FM Code Onset Dates Condition S tatus SNOMED Code Problem Type 2 diabetes mellitus without complications E11 .9 Active 11451256 Problem 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 E78.2 Active 528407216 Problem Chronic osteomyelitis M86.60 Active 14679954 Problem Wheel chair as ambulatory aid Z99.3 Active 020575281 Problem Chronic pain syndrome G89.4 Active 599424277 Problem Essential hypertension I10 Active 50300618 Problem Status post total bilateral knee replacement Z96.6 53 Active 8147288781600 Problem Incontinence of feces, unspecified fecal incontinence type R15.9 Active [id number] ALLERGIES No Information ENCOUNTERS Encounter Location Date Diagnosis [facility] [address] [facility] [id number] [address] [place] [phone] Oct, [facility] [address] [facility] [id number] [address] [place] [phone] Sep, Type 2 diabetes mellitus wit hout complications E11.9 ; 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 E78.2 ; Essential hypertension I10 and Incontinence of feces, unspecified fecal incontinence type R15.9 [facility] [address] [facility] [id number] [address] [place] [phone] Sep, [facility] [address] [facility] [id number] [address] [place] [phone] Aug, [facility] [address] [facility] [id number] [address] [place] [phone] Aug, [facility] [address] [facility] [id number] [address] [place] [phone] July, [facility] [address] [place] [id number] [address] [place] [phone] July, [facility] [address] [facility] [id number] [address] [place] [phone] July, [facility] [address] [facility] [id number] [address] [place] [phone] May, Type 2 diabetes mellitus wit hout complications E11.9 ; Chronic pain syndrome G89.4 ; Incontinence of feces, unspecified fecal incontinence type R15.9 and 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 E78.2 [facility] [address] [facility] [id number] [address] [place] [phone] May, [facility] [address] [place] [id number] [place] [phone] May, [facility] [address] [place] [id number] [place] [phone] Apr, [facility] [address] [place] [id number] [address] [place] [phone] Mar, [facility] [address] [place] [id number] [address] [place] [phone] Jan, 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 E78.2 ; Type 2 diabetes mellitus without complications E11.9 ; superintendent terminal current use of insulin Z79.4 and Essential hypertension I10 [place] [address] [place] [id number] [place] [phone] Dec, 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 E78.2 ; superintendent terminal current use of insulin Z79.4 ; Type 2 diabetes mellitus without complications E11.9 ; Essential hypertension I10 and Encounter for immunization Z23 [facility] [address] [facility] [id number] [address] [place] [phone] Dec, [facility] [address] [place] [id number] [place] [phone] 10 May, 2016 Candidiasis of scrotum B37.4 9 [facility] [address] [place] [id number] [place] [phone] 07 May, 2016 Candidiasis of scrotum B37.4 9 [facility] [address] [facility] [id number] [address] [place] [address] May, Tinea cruris B35.6 and [facility] hitis J40 IMMUNIZATIONS No Known Immunizations SOCIAL HISTORY Never Assessed REASON FOR VISIT Requests return call PLAN OF CARE VITAL SIGNS MEDICATIONS Unknown [...]
--- OUTSIDE RECORDS SUMMARY | 2019-08-26 07:09 | XMS REPORT ---
Author Author Fernando MUÑOZ Organization [facility] Address [address] [place] [address] Care Team Providers Care Continuing Education Director Name Role Phone SHAYY MUÑOZ Unavailable PROBLEMS Type Condition ICD9-CM Code LYE27-HO Code Onset Dates Condition S tatus SNOMED Code Problem Type 2 diabetes mellitus without complications E11 .9 Active 42128904 Problem 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 E78.2 Active 904881491 Problem Chronic osteomyelitis M86.60 Active 66384839 Problem Wheel chair as ambulatory aid Z99.3 Active 414009010 Problem Chronic pain syndrome G89.4 Active 117926350 Problem Essential hypertension I10 Active 10636254 Problem Status post total bilateral knee replacement Z96.6 53 Active 6856171092214 Problem Incontinence of feces, unspecified fecal incontinence type R15.9 Active 07352552 ALLERGIES No Information ENCOUNTERS Encounter Location Date Diagnosis [facility] [address] [facility] [id number] [address] [place] [phone] Oct, [facility] [address] [facility] [id number] [address] [place] [phone] Sep, Type 2 diabetes mellitus wit hout complications E11.9 ; 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 E78.2 ; Essential hypertension I10 and Incontinence of feces, unspecified fecal incontinence type R15.9 [facility] [address] [facility] [id number] [address] [place] [phone] Sep, [facility] [address] [facility] [id number] [address] [place] [phone] Aug, [facility] [address] [facility] [id number] [address] [place] [phone] Aug, [facility] [address] [facility] [id number] [address] [place] [phone] July, [facility] [address] [place] [id number] [address] [place] [phone] July, [facility] [address] [facility] [id number] [address] [place] [phone] July, [facility] [address] [facility] [id number] [address] [place] [phone] May, Type 2 diabetes mellitus wit hout complications E11.9 ; Chronic pain syndrome G89.4 ; Incontinence of feces, unspecified fecal incontinence type R15.9 and 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 E78.2 [facility] [address] [facility] [id number] [address] [place] [phone] May, [facility] [address] [place] [id number] [place] [phone] May, [facility] [address] [place] [id number] [place] [phone] Apr, [facility] [address] [place] [id number] [address] [place] [phone] Mar, [facility] [address] [place] [id number] [address] [place] [phone] Jan, 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 E78.2 ; Type 2 diabetes mellitus without complications E11.9 ; long term current use of insulin Z79.4 and Essential hypertension I10 [place] [address] [place] [id number] [place] [phone] Dec, 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 E78.2 ; long term current use of insulin Z79.4 ; Type 2 diabetes mellitus without complications E11.9 ; Essential hypertension I10 and Encounter for immunization Z23 [facility] [address] [facility] [id number] [address] [place] [phone] Dec, [facility] [address] [place] [id number] [place] [phone] 10 May, 2016 Candidiasis of scrotum B37.[address] [facility] [address] [place] [id number] [place] [phone] 07 May, 2016 Candidiasis of scrotum B37.4 9 [facility] [address] [facility] [id number] [address] [place] [address] May, Tinea cruris B35.6 and [facility] hitis J40 IMMUNIZATIONS No Known Immunizations SOCIAL HISTORY Never Assessed REASON FOR VISIT refill request PLAN OF CARE VITAL SIGNS MEDICATIONS Medication Instructions Dosage Frequency Start Date End Date Duration S tatus Paxil 20 mg Orally Once a day 1 tablet in the morning 24h Active RESULTS No Results PROCEDURES No Known [...]
--- OUTSIDE RECORDS SUMMARY | 2019-08-26 07:09 | XMS REPORT ---
Author Author [email or web address] [email or web address] [facility] Address [address] [address] Care Team Providers Care Children'S Tutor Name Role Phone EVELYN VAUGHN Unavailable GAULT, SHAYY Unavailable GAULT, SHAYY Unavailable GAULT, SHAYY Unavailable GAULT, SHAYY Unavailable GAULT, SHAYY Unavailable GAULT, SHAYY Unavailable GAULT, SHAYY Unavailable GAULT, SHAYY Unavailable GAULT, SHAYY Unavailable GAULT, SHAYY Unavailable GAULT, SHAYY Unavailable GAULT, SHAYY Unavailable GAULT, SHAYY Unavailable GAULT, SHAYY Unavailable GAULT, SHAYY Unavailable GAULT, SHAYY Unavailable GAULT, SHAYY Unavailable KENNEY MELLO Unavailable GAULT, SHAYY Unavailable GAULT, SHAYY Unavailable Unavailable CHUCKY CAREY Unavailable Unavailable ZENAIDA RICHARDSON MD Unavailable Unavailable MARY BETH LOYOLA Unavailable Unavailable MARY BETH LOYOLA Unavailable Unavailable MARY BETH LOYOLA Unavailable Unavailable GAULT, SHAYY Unavailable ZENAIDA RICHARDSON Unavailable Unavailable ZENAIDA RICHARDSON Unavailable Unavailable ZENAIDA RICHARDSON Unavailable Unavailable CHUCKY CAREY Unavailable Unavailable KEN SALAZAR MD Unavailable Unavailable KEN SALAZAR MD Unavailable Unavailable VICENTE RAJAN CATRACHITO Unavailable Unavailable VICENTE RAJAN CATRACHITO Unavailable Unavailable ZENAIDA RICHARDSON MD Unavailable Unavailable NICHOLAS HEATON DIRECTOR [employer]PORATE SALES Unavailable Unavailable JOLIE RAJAN, JUAN K Unavailable Unavailable ERASMO GARCIA, CATALINA Acuna Unavailable Unavailable SHAYY MUÑOZ Unavailable Unavailable Unavailable EVER CALDERON Unavailable Unavailab le Unavailable Unavailable Unavailable Unavailable Unavailable Unavailable Unavailable Unavailable Unavailable Unavailable Unavailable Unavailable Allergies Normalized Allergy Reported Date of Reaction(s) Care Provider Facility Allergy Type classification allergen Allergy Onset Drug Allergy Doxycycline Doxycycline UNKNOWN ZENAIDA RICHARDSON [facility] (8 sources.) [facility] ([address]31) DA (6 Unclassified No Known Drug 11-17-2011 - no information CHUCKY AURELIO Not Available sources.) Allergies (80979) Drug Allergy sacubitril sacubitril 05-06-2019 - no information CEM BARRERA Via (24 sources.) DO [facility] (68094) Drug Allergy Angiotensin 2 valsartan 05-06-2019 - no information CEM BARRERA Via (24 sources.) Receptor DO [facility] Blockers (ARB) [facility] (77692) Medications Medication Ingredient Drug Dose Dates Status Sig Sig Care Class(es) (Normalized) (Original) Provid er aspirin 81 aspirin Nonsteroida 81 mg Active no Aspir-81 81 no mg delayed Translation l information MG Orally name release s: [ Anti-inflam Once a day 1 oral tablet Aspir-81 81 matory Drug tablet 24h (1 source.) MG] Active diphenhydrA diphenhydrA Histamine-1 50 mg Active no Benadryl 50 no MINE MINE Receptor information mg by oral name hydrochlori Antagonist route PRN 1 de 50 mg tablet oral tablet Active (3 sources.) Active no Benadryl no name inform Active ation Problems Active Problems Problem Normalized Date Last Normalized Normalized Provider Fa cility Classification Problem(s) Recorded Problem Problem Sta tus Duration Other bone Acquired 08-19-2019 - Episodic Active CEM SELLERS Via disease and absence of MD Mota musculoskelmayra other right Hospital - l deformities toe(s) [place] (4 sources.) (83130) Acute and Acute kidney 08-19-2019 - Episodic Active CATRACHITO VALENCIA VC Via unspecified failure, DO [facility] renal failure unspecified Hospital - (8 sources.) [place] (41805) Acute Acute 08-19-2019 - Chronic Active CATALINA ZIMMERMAN , [facility] Via myocardial myocardial [facility] infarction (7 infarction, Hospital - sources.) unspecified [place] (21406) Acute Acute 08-19-2019 - Episodic Active CATRACHITO ZHANG , [facility] Via posthemorrhagi posthemorrhagi DO [place] cho anemia (8 c anemia Hospital - sources.) [place] (80050) Other Aftercare 08-19-2019 - Chronic Active KEN SALAZAR , [facility] Via aftercare (4 following MD Mota sources.) joint Hospital - replacement [place] surgery (32933) Allergic Allergy status 08-19-2019 - Episodic Active CATALINA RUTH , [facility] Via reactions (5 to other MD [facility]ota sources.) drugs, Hospital - medicaments [place] and biological (10582) substances status Deficiency and Anemia in 08-19-2019 - Chronic Active CATRACHITO GONZALES , [facility] Via other anemia other chronic DO Mota (8 sources.) diseases Hospital - [facility] elsewhere (06897) Deficiency and Anemia, 08-19-2019 - Episodic Active KEN BAUMANN , [facility] Via other anemia unspecified [facility] (14 sources.) Hospital - [place] (85302) Anxiety Anxiety 08-19-2019 - Chronic Active KEN SALAZAR , [facility] Via disorders (4 disorder, MD [facility]ota sources.) unspecified Hospital - [place] (20700) Coronary Atheroscleroti 08-19-2019 - Chronic Active CATALINA RUTH , [facility] Via atherosclerosi c heart MD [place] wright and other disease of Hospital - heart disease [facility] (22 sources.) coronary (82630) artery without angina pectoris Translations: [ OLD MYOCARDIAL INFARCTION] External cause Bathroom of 08-19-2019 - Episodic Active JUAN ESCALERA , DO [facility] Via codes: Place single-family [place] of occurrence (private) Hospital - (4 sources.) house as the [place] place of (20622) occurrence of the external cause Other Body mass Chronic Active SHAYYGhostruck [facility] nutritional; index (BMI) 24116 [facility] endocrine; and 38.0-38.9, of [place] metabolic adult [place] (79599) disorders (2 Translations: sources.) [ - BMI 38.0-38.9,adul t Z68.38] Other Body mass Chronic Active MentiNova [facility] nutritional; index 30+ - [address] [facility] endocrine; and obesity of [facility] metabolic Translations: [place] (15685) disorders (1 [ BMI source.) 38.0-38.9,adul t] Other and Cardiomegaly 08-19-2019 - Chronic Active NICHOLAS [facility] Via ill-defined [place] HEATON heart disease [facility] - (4 sources.) [place] (88455) Chronic Chronic 08-19-2019 - Chronic Active CATRACHITO ZHANG [facility] Via obstructive obstructive DO [facility] pulmonary pulmonary [facility] - disease and disease, [place] bronchiectasis unspecified (00499) (8 sources.) Infective Chronic 08-19-2019 - Chronic Active CATRACHITOHayley ZHANG [facility] Via arthritis and osteomyelitis DO [facility] osteomyelitis Translations: Hospital - (except that [ Chronic [place] caused by osteomyelitis, (77672) tuberculosis Chronic or sexually osteomyelitis, transmitted - Chronic disease) (21 osteomyelitis sources.) M86.60, OTHER CHRONIC OSTEOMYELITIS, RIGHT ANKLE] Unclassified Chronic pain Episodic Active SHAYY GAULT Comm unity (14 sources.) syndrome [address] [facility] Translations: [facility] [ Chronic pain [place] (96811) syndrome, Chronic pain syndrome] Other nervous Chronic pain Chronic Active SHAYY [employer] Com munity system syndrome [address] [place] [address] Center disorders (16 Translations: of [facility] sources.) [ - Chronic [place] (27524) pain syndrome G89.4, - Chronic pain syndrome G89.4] Other Constipation, 08-19-2019 - Episodic Active KEN LOPEZ N , [facility] Via gastrointestin unspecified MD [facility] al disorders Hospital - (4 sources.) [place] (30765) Superficial Contusion of 08-19-2019 - Episodic Active JUAN BROWN O , DO [facility] Via injury; unspecified [place] contusion (16 part of head, Hospital - sources.) initial [place] encounter (85634) Translations: [ CONTUSION OF LEFT KNEE, INITIAL ENCOUNTE, CONTUSION OF RIGHT KNEE, INITIAL ENCOUNT, CONTUSION OF LEFT SHOULDER, INITIAL ENCO] Other lower Cough 08-19-2019 - Episodic Active CATRACHITO VICENTE [facility] Via respiratory Translations: DO [place] disease (13 [ - Cough R05, Hospital - sources.) - Chronic [place] cough R05] (62530) Unclassified Dependence on Chronic Active SHAYY GAULT Com munity (15 sources.) wheelchair [address] [facility] Translations: of [facility] [ Wheel chair [place] (42845) as ambulatory aid, Wheel chair as ambulatory aid, - Wheel chair as ambulatory aid Z99.3] Conditions Dizziness and 08-19-2019 - Episodic Active JUAN STEPHANIE O , DO [facility] Via associated giddiness [place] with dizziness Hospital - or vertigo (4 [place] sources.) (12424) External cause Exposure to 08-19-2019 - Episodic Active KATHRY N AURELIO [facility] Via codes: other [place] Natural/enviro specified Hospital - nment (4 factors, [place] sources.) initial (07295) encounter External cause Fall on same 08-19-2019 - Episodic Active JUAN JOLIE , DO [facility] Via codes: Fall (4 level from [facility] sources.) slipping, Hospital - tripping and [place] stumbling (06748) without subsequent striking against object, initial encounter Unclassified Finding no information Active Sossee mungoBalto (2 sources.) related to [address] [place] [address] ability to of [facility] mobilize using [place] (00912) wheelchair Translations: [ Wheel chair as ambulatory aid] Genitourinary Frequency of 08-19-2019 - Episodic Active KEN BARROS , [facility] Via symptoms and micturition [facility] ill-defined Hospital - conditions (4 [place] sources.) (68508) Other Full Episodic Active [facility] gastrointestin incontinence [address] [place] [address] al disorders of feces of [facility] (20 sources.) Translations: [place] (44000) [ - Incontinence of feces, unspecified fecal incontinence type R15.9, - Incontinence of feces, unspecified fecal incontinence type R15.9] Esophageal Gastro-esophag 08-19-2019 - Chronic Active CATRACHITO DALEY , [facility] Via disorders (12 eal reflux DO [facility] sources.) disease Hospital - without [place] esophagitis (43520) Congestive Heart failure, 08-19-2019 - Chronic Active SHAYY WEEMS [facility] heart failure; unspecified [address] [place] [address] nonhypertensiv Translations: of [facility] e (23 [ - Systolic [place] (65977) sources.) CHF, chronic I50.22, Systolic CHF, chronic, ACUTE ON CHRONIC COMBINED SYSTOLIC AND D] Other History of [facility] connective total knee 24037 [facility] tissue disease arthroplasty of [facility] (16 sources.) (situation) [place] (24379) Translations: [ Status post total bilateral knee replacement, Status post total bilateral knee replacement] Fluid and Hypo-osmolalit 08-19-2019 - Episodic Active CATRACHITO GA RNER , [facility] Via electrolyte y and DO [place] disorders (20 hyponatremia Hospital - sources.) Translations: [place] [ HYPOKALEMIA, (90483) ACIDOSIS, HYPO-OSMOLALIT Y AND HYPONATREMIA] Other Hypomagnesemia 08-19-2019 - Chronic Active CATRACHITO GAR NER , [facility] Via nutritional; DO [place] endocrine; and Hospital - metabolic [place] disorders (8 (39891) sources.) Complication Infection and 08-19-2019 - Episodic Active CATRACHITO ZHANG , [facility] Via of device; inflammatory DO [place] implant or reaction due Hospital - graft (8 to internal [place] sources.) left knee (00499) prosthesis, initial encounter Complication Infection and 08-19-2019 - Episodic Active CATRACHITO ZHANG , [facility] Via of device; inflammatory DO [place] implant or reaction due Hospital - graft (8 to internal [place] sources.) right knee (96639) prosthesis, initial encounter Other Knee joint Chronic Active MARY BETH LOYOLA Not Av ailable connective replacement (18731) tissue disease (3 sources.) Residual Localized Episodic Active [facility] codes; edema 15081 [facility] unclassified Translations: of [facility] (1 source.) [ - Lower [place] (96367) extremity edema R60.0] Other homeopathic doctor 08-19-2019 - Episodic Active JUAN DAVE , DO [facility] Via aftercare (9 (current) use [place] sources.) of aspirin Hospital [facility] (25806) Other homeopathic doctor 08-19-2019 - Episodic Active CATALINA ZIMMERMAN , [facility] Via aftercare (5 (current) use MD [facility]ota sources.) of oral Hospital - hypoglycemic [place] drugs (55075) Mood disorders Major 08-19-2019 - Chronic Active CATRACHITO GAR NER , [facility] Via (15 sources.) depressive DO [place] disorder, Hospital - single [place] episode, (91225) unspecified Translations: [ Symptoms of depression, - Symptoms of depression F32.9] Other nervous Metabolic 08-19-2019 - Chronic Active CATRACHITO GAR NER , [facility] Via system encephalopathy DO [place] disorders (8 Hospital - sources.) [place] (13469) Substance-rela Nicotine 08-19-2019 - Chronic Active KEN BAUMANN , [facility] Via ken disorders dependence, MD [facility] (4 sources.) cigarettes, Hospital - uncomplicated [place] (55053) Residual Obstructive 08-19-2019 - Chronic Active CATRACHITO ZHANG , [facility] Via codes; sleep apnea DO [place] unclassified (adult) Hospital - (8 sources.) (pediatric) [place] (82871) Occlusion or Occlusion and 08-19-2019 - Chronic Active CATALINA ZIMMERMAN , [facility] Via stenosis of stenosis of MD [facility] precerebral bilateral Hospital - arteries (5 carotid [place] sources.) arteries (58290) External cause Other external 08-19-2019 - Episodic Active DONELL DAVE DO [facility] Via codes: cause status [place] Unspecified (4 Hospital - sources.) [place] (95134) Other Other long 08-19-2019 - Episodic Active Maricruz BROWN [facility] Via aftercare (9 term (current) [place] sources.) drug therapy Hospital - [place] (40448) Rheumatoid Other 08-19-2019 - Chronic Active KEN SAALZAR , [facility] Via arthritis and specified [facility] related rheumatoid Hospital - disease (20 arthritis, [place] sources.) left hand (29575) Translations: [ RHEUMATOID ARTHRITIS, UNSPECIFIED JUVENILE RHEUMATOID ARTHRITIS OF UNSPECIFIED SITE, RHEUMATOID ARTHRITIS, UNSPECIFIED] Infective Other 08-19-2019 - Episodic Active CATRACHITO ZHANG , [facility] Via arthritis and streptococcal DO [place] osteomyelitis arthritis, Hospital - (except that left knee [place] caused by Translations: (24188) tuberculosis [ OTHER or sexually STREPTOCOCCAL transmitted ARTHRITIS, disease) (16 RIGHT KNE] sources.) Other Pain in left Episodic Active SHAYY Nagel ty connective hand [address] [facility] tissue disease Translations: of [place] (2 sources.) [ - Left hand [place] (16810) pain M79.642] Other Pain in left 08-19-2019 - Episodic Active CHUCKY HEIDI RA [facility] Via non-traumatic knee [facility] joint Hospital - disorders (7 [place] sources.) (47547) Other Pain in right 08-19-2019 - Episodic Active CHUCKY FL ORA [facility] Via non-traumatic knee [facility] joint Hospital - disorders (7 [place] sources.) (37017) Screening and Personal 08-19-2019 - Episodic Active CATRACHITO LYON ER , [facility] Via history of history of [facility] mental health nicotine Hospital - and substance dependence [place] abuse codes (8 (98346) sources.) Pneumonia Pneumonia, Episodic Active SHAYY MUÑOZ Community (except that unspecified [address] [facility] caused by organism of [place] tuberculosis Translations: [place] (99643) or sexually [ - Atypical transmitted pneumonia disease) (1 J18.9] source.) Other nervous Polyneuropathy 08-19-2019 - Chronic Active KEN SALAZAR [facility] Via system , unspecified [facility] disorders (4 Hospital - sources.) [place] (86190) Complications Postprocedural 08-19-2019 - Episodic Active KEN SALAZAR [facility] Via of surgical fever MD Mota procedures or Hospital - medical care [place] (4 sources.) (42119) Other Presence of 08-19-2019 - Chronic Active KEN SALAZAR [facility] Via connective artificial MD [place] tissue disease knee joint, [facility] - (8 sources.) bilateral [place] Translations: (97708) [ - Status post total bilateral knee replacement Z96.653, - S/p total knee replacement, bilateral Z96.653] Other Presence of 08-19-2019 - Chronic Active CATRACHITO ZHANG , [facility] Via connective left DO [place] tissue disease artificial Hospital - (12 sources.) knee joint [place] (66228) Other Presence of 08-19-2019 - Chronic Active JUAN JOLIE , DO [facility] Via connective right [place] tissue disease artificial Hospital - (7 sources.) knee joint [place] (94218) Osteoarthritis Primary 08-19-2019 - Chronic Active JUAN JOLIE , DO [facility] Via (18 sources.) osteoarthritis [place] , right ankle Hospital - and foot [place] Translations: (67824) [ PRIMARY OSTEOARTHRITIS , LEFT ANKLE AND F, PRIMARY OSTEOARTHRITIS , LEFT SHOULDER] Heart valve Rheumatic 08-19-2019 - Chronic Active CATRACHITO RUSSO R , [facility] Via disorders (17 disorders of DO [place] sources.) both mitral Hospital - and tricuspid [place] valves (59162) Translations: [ RHEUMATIC TRICUSPID INSUFFICIENCY, NONRHEUMATIC MITRAL (VALVE) INSUFFICIENC] Septicemia Sepsis due to 08-19-2019 - Episodic Active CATRACHITO CAMERON RNER , [facility] Via (except in Methicillin DO [place] labor) (16 resistant Hospital - sources.) Staphylococcus [place] aureus (81768) Translations: [ SEPSIS DUE TO STREPTOCOCCUS, GROUP B] Shock (8 Severe sepsis 08-19-2019 - Episodic Active CATRACHITO SONALI ER , [facility] Via sources.) with septic DO [facility] shock Hospital [facility] (95325) Other lower Shortness of Episodic Active SHAYY MUÑOZ Commu nity respiratory breath [address] [facility] disease (2 Translations: of [facility] sources.) [ - Shortness [place] () of breath R06.02] Bacterial Streptococcus, 08-19-2019 - Episodic Active CATRACHITO NISHA SIGALAER , [facility] Via infection; group B, as DO [facility] unspecified the cause of Hospital - site (8 diseases [place] sources.) classified (37085) elsewhere Diabetes Type 2 08-19-2019 - Chronic Active CATRACHITO ZHANG , [facility] Via mellitus with diabetes DO [facility] complications mellitus with Hospital - (15 sources.) other [place] specified (94653) complication Translations: [ - Type 2 diabetes mellitus with other specified complication, without long-term current use of insulin E11.69, TYPE 2 DIABETES MELLITUS WITH HYPERGLYCE] Other injuries Unspecified 08-19-2019 - Episodic Active JUAN R JW , DO [facility] Via and conditions injury of [facility] due to right lower Hospital - external leg, initial [place] causes (4 encounter (85437) sources.) Open wounds of Unspecified Episodic Active SHAYY MUÑOZ [facility] extremities (4 open wound, [address] [facility] sources.) left foot, of [facility] initial [place] (85096) encounter Translations: [ - Wound of left foot S91.302A] Other lower Wheezing Episodic Active SHAYY MUÑOZ [facility] respiratory Translations: [address] [facility] disease (1 [ Wheezes] of [facility] source.) [place] (44387) Past or Other Problems Problem Normalized Date Last Normalized Normalized Provider Fa cility Classification Problem(s) Recorded Problem Problem Sta tus Duration Other Encounter for Episodic Completed MARY BETH LOYOLA Not Available aftercare (2 other (70764) sources.) orthopedic aftercare External cause Exposure to no information no information KATHRY N AURELIO Not Available codes: other (43000) Natural/enviro specified nment (3 factors, sources.) initial encounter Other Other Episodic Completed MARY BETH LOYOLA Not Avai lable aftercare (2 orthopedic (49723) sources.) aftercare Disorders of Pure no information no information ZENAIDA HUSSEIN Not Available lipid MD [facility] (61970) metabolism (2 olemia, sources.) unspecified Procedures Procedure Normalized Procedure Procedure Result Performer Facility Date 10-13-2015 DETACHMENT AT RIGHT no information no name [facility] Via [place] 2ND TOE, LOW, OPEN A [facility] (59443) 10-14-2015 DRAINAGE OF RIGHT KNEE no information no name [facility] [place] [facility]84336[facility] 10-02-2017 [facility] visit, estab pt no information no name [facility] (14536) 06-11-2017 [facility] visit, estab pt no information no name [facility] (35867) 01-17-2017 [facility] visit, estab pt no information no name [facility] (56716) 10-02-2017 Hemoglobin no information no name [facility] H [facility] glycosylated a1c [facility] (91633) 06-11-2017 Hemoglobin no information no name [facility] glycosylated a1c [facility] (79234) 10-13-2015 REMOVAL OF SYNTH SUB no information no name [facility] [place] [facility] (58910[facility] 10-15-2015 REMOVAL OF SYNTH SUB no information no name [facility] [place] [facility]78848[facility] 10-13-2015 REPLACE OF L KNEE JT no information no name [facility] Via [place] WITH SYNTH [facility], [facility] (82801) 10-15-2015 REPLACE OF R KNEE JT no information no name [facility] Via [place] WITH SYNTH SUB, [facility] (77603) Immunizations Normalized Immunization Date Notes Care Provider Facili ty Immunization influenza, high dose 12-18-2018 no information no name [facility] (19009[facility] influenza, high dose 02-20-2018 - no information no name [facility], 02-20-2018 [facility] Translations: [ (64577) FLUZONE HIGH DOSE (65 & UP) 2017] influenza, high dose 01-17-2017 - no information SHAYY MUÑOZ 66 762 [facility] seasonal, 01-17-2017 [facility] preservative-[facility] (06252) Translations: [ FLUZONE HIGH DOSE 65 AND UP 2015] pneumococcal 04-23-2016 no information no name Not Availa ble conjugate vaccine, (38470) 13 valent ADMN FLU VAC NO FEE 02-20-2018 no information MELLO KENNEY [address] [facility] SAME DAY [facility] (91065) SINGLE IMMUNIZATION 02-20-2018 no information MELLO KENNEY [address] [facility] (62676) SINGLE IMMUNIZATION 01-17-2017 no information SHAYY MUÑOZ 6676 2 [facility] (34966) Results Test Name Value Interpretation Reference Range Date Time Fa cility (Normalized) (Normalized) (Medline Reference) a1c (in house) on null HbA1c 5.4 % (no code) 0 - 5.7 % [facility] (85117) Hemoglobin 5.7 % (no code) 0 - 5.7 % [facility] A1c/Hemoglobin.t [facility] fraction (Bld) (19809) A1C (IN HOUSE) 0812 (no code) [facility] (86937) A1C (IN HOUSE) 01/2019 (no code) [facility] (16898) A1C (IN HOUSE) 0856 (no code) [facility] (09431) A1C (IN HOUSE) 05/2019 (no code) [facility] (34306) laboratory on 2019-08-21 Coronavirus Ab Negative (no code) 08-21-2019 PENDING LOC ATION Qn (S) 08:43-0400 S (36407) not yet categorized on 2019-05-12 Exp date 03-14 (no code) [facility] (03578) Lot 5.6~5.7~0610 (no code) [facility] (65757) laboratory on 2019-03-12 Albumin 4.6 g/dL (N) 3.4 - 5.4 g/dL [facility] Health [Mass/Vol] [facility] (24365) Albumin/Globulin 1.9 {ratio} (N) 1 - 2.5 {ratio} Comm [facility] [Mass ratio] [facility] (67465) ALP [Catalytic 51 U/L (N) 44 - 147 U/L [facility] Health activity/Vol] [facility] (96801) ALT [Catalytic 12 U/L (N) 4 - 40 U/L [facility] activity/Vol] [facility] (18933) AST [Catalytic 12 U/L (N) 10 - 34 U/L [facility] Health activity/Vol] [facility] ([id number]) Basophils (Bld) 0.019 10*3/uL (N) 0 - 0.3 10*3/uL [facility] [#/Vol] [facility] () Basophils/100 0.4 % (N) 0.5 - 1 % [facility] WBC (Bld) [facility] ([id number]) Bilirubin 2.9 mg/dL (H) 0.1 - 1.2 mg/dL [facility] [Mass/Vol] [facility] ([id number]) Calcium 9.7 mg/dL (N) 8.5 - 10.2 mg/dL [facility] [Mass/Vol] [facility] (67935) Chloride 107 mmol/L (N) 95 - 106 mmol/L [facility] [Moles/Vol] [facility] (24531) Cholesterol 128 mg/dL (N) 180 - 200 mg/dL [facility] [Mass/Vol] [facility] (90720) Cholesterol in 35 mg/dL (L) [facility] HDL [Mass/Vol] [facility] (18590) Cholesterol in 74 mg/dL (N) 0 - 100 mg/dL [facility] LDL [Mass/Vol] [facility] (11682) Cholesterol non 93 mg/dL (N) [facility] th HDL [Mass/Vol] [facility] (42422) Cholesterol.tota 3.7 {ratio} (N) [facility] l/Cholesterol in [facility] HDL [Mass ratio] [facility] (48373) CO2 [Moles/Vol] 29 mmol/L (N) 23 - 29 mmol/L [facility] (11056) Creatinine 1.17 mg/dL (N) [facility] h [Mass/Vol] [facility] (78423) Eosinophils 0.028 10*3/uL (N) 0.05 - 0.5 [facility] He alth (Bld) [#/Vol] 10*3/uL [facility] (88185) Eosinophils/100 0.6 % (N) 1 - 4 % [facility] WBC (Bld) [facility] (96780) Erythrocyte 13.3 % (N) 11.6 - 14.6 % [facility] ealth distribution [facility] width (RBC) [facility] [Ratio] (91437) GFR/1.73 sq M 72 (N) 90 - 120 [facility] predicted among mL/min/{1.73_m2} mL/min/{1.73_m2} [facility] blacks MDRD [facility] (S/P/Bld) [Vol ([id number]) rate/Area] GFR/1.73 sq 62 (N) 90 - 120 [facility] th M.predicted MDRD mL/min/{1.73_m2} mL/min/{1.73_m2} [facility] (S/P/Bld) [Vol [facility] rate/Area] (84898) Globulin (S) 2.4 g/dL (N) 2 - 3.5 g/dL [facility] [Mass/Vol] [facility] (90920) Glucose 112 mg/dL (H) 60 - 125 mg/dL [facility] [Mass/Vol] [facility] (61434) Hematocrit (Bld) 35.4 % (L) 36.1 - 50.3 % [facility] [Volume [facility] fraction] [facility] (65473) Hemoglobin (Bld) 11.4 g/dL (L) 12.1 - 17.2 g/dL [facility] [Mass/Vol] [facility] (46507) Lymphocytes 0.954 10*3/uL (N) 0.9 - 2.9 [facility] (Bld) [#/Vol] 10*3/uL [facility] (64564) Lymphocytes/100 20.3 % (N) 20 - 40 % [facility] Health WBC (Bld) [facility] (43318) MCH (RBC) 32.3 pg (N) 27 - 31 pg [facility] [Entitic mass] [facility] (47538) MCHC (RBC) 32.2 g/dL (N) 32 - 36 g/dL [facility] [Mass/Vol] [facility] (29782) MCV (RBC) 100.3 fL (H) 80 - 100 fL [facility] Hea lth [Entitic vol] [facility] (78172) Monocytes (Bld) 0.348 10*3/uL (N) 0.3 - 0.9 Commun[facility] y [facility] [#/Vol] 10*3/uL [facility] (24807) Monocytes/100 7.4 % (N) 2 - 8 % [facility] WBC (Bld) [facility] (11098) Natriuretic 2157 pg/mL (H) 0 - 100 pg/mL Community H ealth peptide B (Bld) [facility] [Mass/Vol] [facility] (12220) Neutrophils 3.351 10*3/uL (N) 1.7 - 7 10*3/uL [facility] Health (Bld) [#/Vol] [facility] (29874) Neutrophils/100 71.3 % (N) 40 - 60 % [facility] Health WBC (Bld) [facility] (17542) Platelet mean 11.6 fL (N) 7.2 - 11.7 fL [facility] volume (Bld) [facility] [Entitic vol] [facility] (37868) Platelets (Bld) 205 10*3/uL (N) 150 - 450 [facility] Health [#/Vol] 10*3/uL [facility] (37953) Potassium 4.7 mmol/L (N) 3.7 - 5.2 mmol/L [facility] [Moles/Vol] [facility] (50597) Protein 7.0 g/dL (N) 6.4 - 8.3 g/dL [facility] [Mass/Vol] [facility] (93983) RBC (Bld) 3.53 10*6/uL (L) 4.2 - 6.1 [facility] Hea lth [#/Vol] 10*6/uL [facility] (31560) Sodium 143 mmol/L (N) 135 - 145 mmol/L [facility] [Moles/Vol] [facility] (23239) Triglyceride 108 mg/dL (N) 0 - 150 mg/dL [facility] [Mass/Vol] [facility] (42212) Urea nitrogen 20 mg/dL (N) 7 - 20 mg/dL [facility] [Mass/Vol] [facility] (03242) Urea NOT APPLICABLE (no code) Community Healt h nitrogen/Creatin [facility] [Mass ratio] [facility] (40554) WBC (Bld) 4.7 10*3/uL (N) 3.5 - 10.5 [facility] Heal th [#/Vol] 10*3/uL [facility] (14856) not yet categorized on 2018-12-19 Exp date 06/12 (no code) [facility] (81557) Lot 5.7~5.3~[id number] (no code) [facility] Healt h [facility] (15034) laboratory on 2018-10-08 Bacteria SEE NOTE (A) Community [facility]alt [facility] identified Aer [facility] Nom ([facility] spec) ([id number]) Bacteria SEE NOTE (no code) [facility] identified Anaer [facility] Nom ([facility] spec) ([id number]) other on 2018-07-24 Exp date 12/2019 (no code) [facility] (34832) Lot 5.3~5.4~0941 (no code) [facility] (51324) other on 2017-10-02 Exp date 05/2019 (no code) no information Lot 5.7~5.4~0856 (no code) no information other on 2017-06-11 Exp date 01/2019 (no code) [facility] (43485) Lot 5.4~5.4~0812 (no code) [facility] (28326) Vital Signs Vital Sign Value Interpretation Reference Date Time Care Prov ider Facility (Normalized) (Normalized) Range BMI (Body Mass 35.75 kg/m2 (no code) 15 - 25 kg/m2 10-02-2017 HO LLY GAULT Community Index) 11:000400 19860 [facility] (75516) BMI (Body Mass 35.62 kg/m2 (no code) 15 - 25 kg/m2 06-11-2017 HO LLY GAULT Community Index) 16:40-[address] [place] [address] ([id number]) BMI (Body Mass 33.51 kg/m2 (no code) 15 - 25 kg/m2 01-17-2017 HO LLY GAULT Community Index) 15:00-0400 17963 [facility] (13335) Body 98.2 [degF] (no code) 97.8 - 99.0 10-02-2017 SHAYY PARKER T Community Temperature [degF] 11:00-0400 95791 [facility] (87019) Body 97.6 [degF] (no code) 97.8 - 99.0 06-11-2017 SHAYY PARKER T Community Temperature [degF] 16:40-0400 19977 [facility] (24826) Body 97.6 [degF] (no code) 97.8 - 99.0 01-17-2017 SHAYY PARKER T Community Temperature [degF] 15:00-0400 13682 [facility] (66848) Height 185.42 cm (no code) cm 10-02-2017 SHAYY GAULT Co mmunity 11:00-0400 42920 [facility] (08900) Height 185.42 cm (no code) cm 06-11-2017 SHAYY GAULT Co mmunity 16:40-0400 34693 [facility] (16568) Height 185.42 cm (no code) cm 01-17-2017 SHAYY GAULT Co mmunity 15:00-0400 30939 [facility] (54317) Weight 122.93 kg (no code) kg 10-02-2017 SHAYY GAULT Co mmunity 11:00-0400 30080 [facility] (12411) Weight 122.47 kg (no code) kg 06-11-2017 SHAYY GAULT Co mmunity 16:40-0400 92207 [facility] (28926) Weight 115.21 kg (no code) kg 01-17-2017 SHAYY GAULT Co mmunity 15:00-0400 13315 [facility] (79448) Interventions No Information Plan of Treatment Normalized Care Care Detail Care Activity Date Care Provider F acility Activity (ACUTE) Acute Visit [facility] 02-25-2018 MELLO KENNEY [phone] [facility] ([id number]) [facility] 05-12-2019 SHAYY TONI [address] [facility] (70868) Goals No Information Social History No Information Functional Status No Information Mental Status No Information Encounters Encounter Normalized Encounter Encounter Diagnosis Care Provi julien Organization Date Type 02-25-2018 (ACUTE) Acute Visit Other chronic SHAYY TONI (no p candida) [facility] - osteomyelitis, (no phone) 02-25-2018 unspecified site - 02-25-2018 02-20-2018 (imm/inj) Encounter for MELLO KENNEY (no phone) [facility] - Immunization/injection immunization (no cleo ne) 02-20-2018 - 02-20-2018 03-30-2019 [facility] Cough SHAYY MUÑOZ (no phone) [facility] ESSIE ASENCIO (no phone) 03-23-2019 [facility] IN Cough GARRET DAMON (n o [facility] CARE phone) CARE (no phone) 03-19-2019 [facility] Cough NICHOLAS HEATON (no [facility] phone) (no phone) 03-12-2019 [facility] Shortness of breath SHAYY CALVILLO (no phone) [facility] (no phone) 02-17-2019 [facility] Shortness of breath NICHOLAS MURRAY [facility] (no [facility] phone) (no phone) 01-12-2019 [facility] Essential (primary) NICHOLAS MURRAY [facility] (no [facility] hypertension phone) (no phone) 12-18-2018 [facility] Type 2 diabetes SHAYY MUÑOZ ( no phone) [facility] mellitus with other (no phone) specified complication 10-08-2018 [facility] Unspecified open SHAYY MUÑOZ (no phone) [facility] - wound, left foot, (no phone) 10-08-2018 initial encounter - 10-08-2018 07-24-2018 [facility] Type 2 diabetes SHAYY MUÑOZ ( no phone) [facility] - mellitus with other (no phone) 07-24-2018 specified complication - 07-24-2018 04-24-2018 [facility] Other chronic SHAYY MUÑOZ (no phone) [facility] - osteomyelitis, (no phone) 04-24-2018 unspecified site - 04-24-2018 12-05-2015 Emergency department no information JUAN DAVE DO (no [facility] - patient visit phone) [facility] 12-05-2015 (no phone) 10-21-2015 Evaluation and no information KEN SALAZAR MD (no [facility] - management of phone) [facility] 11-03-2015 inpatient (no phone) 10-19-2015 Evaluation and no information CATRACHITO ZHANG DO (no [facility] - management of phone) [facility] 10-21-2015 inpatient (no phone) 10-12-2015 Evaluation and no information CATRACHITO ZHANG DO (no [facility] - management of phone) [facility] 10-19-2015 inpatient (no phone) 10-02-2017 Patient encounter no information no name no or ganization name 06-11-2017 Patient encounter no information no name no or ganization name Patient encounter no information no name no organizat ion name 08-19-2019 Patient encounter no information EVER K [facility] procedure [facility] ([facility] [place] phone) (no phone) 08-13-2019 Patient encounter no information CATALINA ZIMMERMAN MD (no [facility] procedure phone) [facility] (no phone) 06-22-2019 Patient encounter no information EVER K [facility] procedure [facility] ([facility] [place] phone) (no phone) 05-21-2019 Patient encounter no information CATALINA ZIMMERMAN MD (no [facility] procedure phone) [facility] (no phone) 05-12-2019 Patient encounter no information SHAYY MUÑOZ (no ph one) [facility] procedure (no phone) [facility] (no phone) 05-06-2019 Patient encounter no information CATALINA ZIMMERMAN MD (no [facility] - procedure phone) [facility] 05-06-2019 (no phone) 04-23-2019 Patient encounter no information CATALINA ZIMMERMAN MD (no [facility] procedure phone) [facility] (no phone) 04-13-2019 Patient encounter no information CATALINA ZIMMERMAN MD (no [facility] procedure phone) [facility] (no phone) 03-23-2019 Patient encounter no information no name no or ganization name procedure 03-19-2019 Patient encounter no information no name no or ganization name procedure 03-12-2019 Patient encounter Major depressive ELVA Martell (no [facility] - procedure disorder, single phone) (no phone ) 03-12-2019 episode, unspecified 03-02-2019 Patient encounter no information NICHOLAS HEATON [facility] procedure [employer] (no phone) [facility] (no phone) 02-17-2019 Patient encounter Major depressive KWAKU QUEEN (no [facility] [place] [facility] - procedure disorder, single phone) (no phone ) 02-17-2019 episode, unspecified 12-18-2018 Patient encounter no information no name no or ganization name procedure 10-08-2018 Patient encounter no information no name no or ganization name procedure 07-24-2018 Patient encounter no information no name no or ganization name procedure 04-24-2018 Patient encounter no information no name no or ganization name procedure 02-25-2018 Patient encounter no information no name no or ganization name procedure 02-20-2018 Patient encounter no information no name no or ganization name procedure 12-26-2016 Patient encounter no information no name no or ganization name - procedure 12-27-2016 09-28-2016 Patient encounter no information no name no or ganization name procedure 09-28-2016 Patient encounter no information ZENAIDA RICHARDSON MD (no [facility] procedure phone) [facility] (no phone) 09-26-2016 Patient encounter no information no name no or ganization name - procedure 09-27-2016 09-06-2016 Patient encounter no information no name no or ganization name procedure 09-06-2016 Patient encounter no information 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 [facility] procedure (no phone) [facility] (no phone) 05-07-2016 Patient encounter no information no name no or ganization name - procedure 06-07-2016 03-31-2019 Telephone encounter no information SHAYY GAULT (no phone) [facility] (no phone) 03-13-2019 Telephone encounter no information SHAYY GAULT (no phone) [facility] (no phone) 03-05-2019 Telephone encounter no information SHAYY GAULT (no phone) [facility] (no phone) 02-27-2019 Telephone encounter no information NICHOLAS HEATON [facility] phone) (no phone) 01-28-2019 Telephone encounter Essential (primary) SHAYY GAULT (no phone) [facility] hypertension (no phone) 01-02-2019 Telephone encounter no information SHAYY GAULT (no phone) [facility] (no phone) 12-23-2018 Telephone encounter no information SHAYY GAULT (no phone) [facility] (no phone) 10-15-2018 Telephone encounter Unspecified open NICHOLAS RUBI (no [facility] - wound, left foot, phone) (no phone) 10-15-2018 initial encounter - 10-15-2018 08-21-2018 Telephone encounter Cough SHAYY MUÑOZ (no cleo ne) [facility] - (no phone) 08-21-2018 - 08-21-2018 08-06-2018 Telephone encounter no information SHAYY GAULT (no phone) [facility] - (no phone) 08-06-2018 - 08-06-2018 06-18-2018 Telephone encounter no information SHAYY GAULT (no phone) [facility] - (no phone) 06-18-2018 - 06-18-2018 05-20-2018 Telephone encounter no information SHAYY GAULT (no phone) [facility] - (no phone) 05-20-2018 - 05-20-2018 05-14-2018 Telephone encounter no information SHAYY GAULT (no phone) [facility] - (no phone) 05-14-2018 - 05-14-2018 05-06-2018 Telephone encounter no information SHAYY GAULT (no phone) [facility] - (no phone) 05-06-2018 - 05-06-2018 04-23-2018 Telephone encounter no information SHAYY GAULT (no phone) [facility] - (no phone) 04-23-2018 - 04-23-2018 04-01-2018 Telephone encounter no information SHAYY GAULT (no phone) [facility] - (no phone) 04-01-2018 - 04-01-2018 03-27-2018 Telephone encounter no information SHAYY GAULT (no phone) [facility] - (no phone) 03-27-2018 - 03-27-2018 02-25-2018 Telephone encounter no information SHAYY GAULT (no phone) [facility] - (no phone) 02-25-2018 - 02-25-2018 12-19-2017 Telephone encounter no information SHAYY GAULT (no phone) [facility] - (no phone) 12-19-2017 - 12-19-2017 11-05-2017 Telephone encounter no information SHAYY GAULT (no phone) [facility] - (no phone) 11-05-2017 - 11-05-2017 no information Encounter for no name (no phone) preprocedural laboratory examination Medical Equipment No Information Payers Normalized Payer Value Medicare no information History general Narrative - Reported Note Type Note Facility History general Narrative - Reported Type Medical diabetes - does not check B S History Medical HTN History Medical osteoarthritis History Medical GERD History Medical Rheumatoid Arthritis History Medical hyperlipidemia History Medical Anxiety disorder History Medical depression History Medical obesity History Medical Chronic back pain History Medical CHF History Surgical Bilateral Total Knee Replacements 2002 History Surgical Back Surgery 2002 History Surgical Septic Shock...Rt 2nd toe amputation (o nly to 1st joint) 2016 History Surgical Left Knee Replacement and Rt 2nd Toe Am putation 2016 History Surgical Right Knee Replacement 2016 History Hospitaliz post surgeries ation History [facility] ([id number]) Additional Source Comments This clinical document has been generated using [employer] software that has been certified by the Office of the National Coordinator for Health Information Technology (ONC 15.99.04.3023.Diam.31.00.0.578408) and the National Committee for Safety Representative (NCQA, as an eMeasure certified technology). FOR RECORDS PERTAINING TO PATIENTS WHO ARE OR HAVE BEEN ENROLLED IN A CHEMICAL D EPENDENCY/SUBSTANCE ABUSE PROGRAM, SOME INFORMATION MAY BE OMITTED. This clinica l summary was aggregated from multiple sources. Caution should be exercised in using it in the provision of clinical care. This summary normalizes information from multiple sources, and as a consequence, information in this document may ma terially change the coding, format and clinical context of patient data. In arya tion, data may be omitted in some cases. CLINICAL DECISIONS SHOULD BE BASED ON T HE PRIMARY CLINICAL RECORDS. [employer]. provides no warranty or guara ntee of the accuracy or completeness of information in this document.The followi ng information is based on time limited clinical information UNRECOGNIZED CONTENT PROVIDED BELOW FOR UNRECOGNIZED SECTION MEDICAL (GENERAL) HISTORY Type Description Date Medical History diabetes Medical History HTN Medical History osteoarthritis Medical History GERD Medical History Rheumatoid Arthritis Surgical History Bilateral Total Kne e Replacements 2001 Surgical History Back Surgery 2002 Surgical History Septic Shock...Rt 2 nd toe amputation (only to 1st joint) 2016 Hospitalization History post surgeries Type Description Date Medical History diabetes - does not check BS Medical History HTN Medical History osteoarthritis Medical History GERD Medical History Rheumatoid Arthritis Medical History hyperlipidemia Medical History Anxiety disorder Medical History depression Medical History obesity Medical History Chronic back pain Surgical History Bilateral Total Kne e Replacements 2001 Surgical History Back Surgery 2002 Surgical History Septic Shock...Rt 2 nd toe amputation (only to 1st joint) 2016 Surgical History Left Knee Replaceme nt and Rt 2nd Toe Amputation 2016 Surgical History Right Knee Replacement 2016 Hospitalization History post surgeries UNRECOGNIZED CONTENT PROVIDED BELOW FOR UNRECOGNIZED SECTION REASON FOR VISIT Requests return callf/u dm and incontinence -- mzaldana, marepositoryMedication refill requestImmunization(s)-awoodsEligibilityHover RoundRefill Request
--- OUTSIDE RECORDS SUMMARY | 2019-08-26 07:09 | XMS REPORT ---
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 Name Role Phone SHAYY MUÑOZ Unavailable PROBLEMS Type Condition ICD9-CM Code OGX90-ZZ Code Onset Dates Condition S tatus SNOMED Code Problem Type 2 diabetes mellitus without complications E11 .9 Active 89907149 Problem 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 E78.2 Active 984761856 Problem Chronic osteomyelitis M86.60 Active 01691951 Problem Wheel chair as ambulatory aid Z99.3 Active 268579945 Problem Chronic pain syndrome G89.4 Active 142330988 Problem Essential hypertension I10 Active 43626103 Problem Status post total bilateral knee replacement Z96.6 53 Active 4543001524851 Problem Incontinence of feces, unspecified fecal incontinence type R15.9 Active 65548838 ALLERGIES No Information ENCOUNTERS Encounter Location Date Diagnosis [facility] [address] [facility] [id number] [address] [place] [phone] Oct, [facility] [address] [facility] [id number] [address] [place] [phone] Sep, Type 2 diabetes mellitus wit hout complications E11.9 ; 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 E78.2 ; Essential hypertension I10 and Incontinence of feces, unspecified fecal incontinence type R15.9 [facility] [address] [facility] [id number] [address] [place] [phone] Sep, [facility] [address] [facility] [id number] [address] [place] [phone] Aug, [facility] [address] [facility] [id number] [address] [place] [phone] Aug, [facility] [address] [facility] [id number] [address] [place] [phone] July, [facility] [address] [place] [id number] [address] [place] [phone] July, [facility] [address] [facility] [id number] [address] [place] [phone] July, [facility] [address] [facility] [id number] [address] [place] [phone] May, Type 2 diabetes mellitus wit hout complications E11.9 ; Chronic pain syndrome G89.4 ; Incontinence of feces, unspecified fecal incontinence type R15.9 and 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 E78.2 [facility] [address] [facility] [id number] [address] [place] [phone] May, [facility] [address] [place] [id number] [place] [phone] May, [facility] [address] [place] [id number] [place] [phone] Apr, [facility] [address] [place] [id number] [address] [place] [phone] Mar, [facility] [address] [place] [id number] [address] [place] [phone] Jan, 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 E78.2 ; Type 2 diabetes mellitus without complications E11.9 ; intermission coordinator current use of insulin Z79.4 and Essential hypertension I10 [place] [address] [place] [id number] [place] [address] Dec, 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 E78.2 ; intermission coordinator current use of insulin Z79.4 ; Type 2 diabetes mellitus without complications E11.9 ; Essential hypertension I10 and Encounter for immunization Z23 [facility] [address] [facility] [id number] [address] [place] [phone] Dec, [facility] [address] [place] [id number] [place] [phone] 10 May, 2016 Candidiasis of scrotum B37.4 9 [facility] [address] [place] [id number] [place] [phone] 07 May, 2016 Candidiasis of scrotum B37.4 9 [facility] [address] [facility] [id number] [address] [place] [address] May, Tinea cruris B35.[address] [facility] hitis J40 IMMUNIZATIONS No Known Immunizations SOCIAL HISTORY Never Assessed REASON FOR VISIT Refill PLAN OF CARE VITAL SIGNS MEDICATIONS Medication Instructions Dosage Frequency Start Date End Date Duration S tatus Simvastatin 10 mg Orally Once a day 1 tablet in the evening 24h Active RESULTS No Results PROCEDURES No [...] toe amputation (on ly to 1st joint) 2015 Surgical History Left Knee Replacement and Rt 2nd Toe Amp utation 2015 Surgical History Right Knee Replacement 2016 Hospitalization History post surgeries
--- OUTSIDE RECORDS SUMMARY | 2019-08-26 07:09 | XMS REPORT ---
Author Author Fernando MUÑOZ Organization [facility] Address [address] [place] [address] Care Team Providers Care Cemetery Workers Supervisor Name Role Phone SHAYY MUÑOZ Unavailable PROBLEMS Type Condition ICD9-CM Code QKS94-WX Code Onset Dates Condition S tatus SNOMED Code Problem Type 2 diabetes mellitus without complications E11 .9 Active 24210654 Problem 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 E78.2 Active 513147062 Problem Chronic osteomyelitis M86.60 Active 13934105 Problem Wheel chair as ambulatory aid Z99.3 Active 302395222 Problem Chronic pain syndrome G89.4 Active 086826081 Problem Essential hypertension I10 Active 56630914 Problem Status post total bilateral knee replacement Z96.6 53 Active 5935027961617 Problem Incontinence of feces, unspecified fecal incontinence type R15.9 Active 95414519 ALLERGIES No Known Allergies ENCOUNTERS Encounter Location Date Diagnosis [facility] [address] [facility] [id number] [address] [place] [phone] Oct, [facility] [address] [facility] [id number] [address] [place] [phone] Sep, Type 2 diabetes mellitus wit hout complications E11.9 ; 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 E78.2 ; Essential hypertension I10 and Incontinence of feces, unspecified fecal incontinence type R15.9 [facility] [address] [facility] [id number] [address] [place] [phone] Sep, [facility] [address] [facility] [id number] [address] [place] [phone] Aug, [facility] [address] [facility] [id number] [address] [place] [phone] Aug, [facility] [address] [facility] [id number] [address] [place] [phone] July, [facility] [address] [facility] [id number] [address] [place] [phone] July, [facility] [address] [facility] [id number] [address] [place] [phone] July, [facility] [address] [facility] [id number] [address] [place] [phone] May, Type 2 diabetes mellitus wit hout complications E11.9 ; Chronic pain syndrome G89.4 ; Incontinence of feces, unspecified fecal incontinence type R15.9 and 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 E78.2 [facility] [address] [facility] [id number] [address] [place] [phone] May, [facility] [address] [facility] [id number] [place] [phone] May, [facility] [address] [place] [id number] [address] [place] [phone] Apr, [facility] [address] [place] [id number] [address] [place] [phone] Mar, [facility] [address] [place] [id number] [address] [place] [phone] Jan, 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 E78.2 ; Type 2 diabetes mellitus without complications E11.9 ; shelter current use of insulin Z79.4 and Essential hypertension I10 [place] [address] [place] [id number] [place] [address] Dec, 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 E78.2 ; 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 ; Type 2 diabetes mellitus without complications E11.9 ; Essential hypertension I10 and Encounter for immunization Z23 [facility] [address] [facility] [id number] [address] [place] [phone] Dec, [facility] [address] [place] [id number] [place] [phone] 10 May, 2016 Candidiasis of scrotum B37.4 9 [facility] [address] [place] [id number] [place] [phone] 07 May, 2016 Candidiasis of scrotum B37.4 9 [facility] [address] [facility] [id number] [address] [place] [address] May, Tinea cruris B35.6 and [facility] hitis J40 IMMUNIZATIONS No Known Immunizations SOCIAL HISTORY Never Assessed REASON FOR VISIT f/u dm and incontinence -- steve phillip PLAN OF CARE Activity Details Follow Up 6 Months with Becky f/u DM/I ncontinence Reason: VITAL SIGNS Height 73 in 2017-10-02 Weight 271.0 lbs 2017-10-02 Temperature 98.2 degrees Fahrenheit 2017-10-02 Heart Rate 92 bpm 2017-10-02 Respiratory Rate 20 2017-10-02 BMI 35.75 kg/m2 2017-10-02 Blood pressure systolic 128 mmHg 2017-10-02 Blood pressure diastolic 80 mmHg 2017-10-02 MEDICATIONS Medication Instructions Dosage Frequency Start Date End Date Duration S tatus ZyrTEC 10 mg by oral route daily 1 tablet 24h Active Oxycodone HCl 5 MG/5ML Orally every 6 hrs 5 ml as needed 6h Not-Taking Potassium Chloride ER 10 TAKE ONE CAPSULE BY TAM TWO TIMES A DAY WITH FOOD 60 Active Colace 100 MG Orally Once a day 1 capsule as needed 24h Active Lisinopril 5 Orally Once a day 1 tablet 24h 90 Not-Taking Xanax 0.5 MG Orally Twice a day 1 tablet 12h Active Neurontin 300 MG Orally 3 times a day 1 capsule 8h Active Zocor 10 MG Orally Once a day 1 tablet in the evening 24h Not-Taking Metformin HCl 1000 MG Orally Twice a day 1 tablet with meals 12h Active Simvastatin 10 mg Orally Once a day 1 tablet in the evening 24h Active Potassium Chloride ER 10 MEQ Orally Twice a day 1 capsule with food 12h Active Hydrocodone-Acetaminophen 5-325 MG Orally 2 times a day prn 1 ta blet as needed Active Metoprolol Tartrate 25 MG Orally Once a day at bedtime 0.5 tablet wit h food Active Nystatin 413464 UNIT/GM Externally Twice a day 1 application to affected area 12h May, Not-Taking Paxil 20 mg Orally Once a day 1 tablet in the morning 24h Active Prevacid 15 MG Orally Once a day 1 capsule 24h Active Ferrous Sulfate 325 (65 Fe) MG Orally Once a day 1 tablet 24h Not-Taking Lisinopril 5 mg Orally Once a day 1 tablet 24h 30 da ys Active Aspir-81 81 MG Orally Once a day 1 tablet 24h Active Benadryl 50 mg by oral route PRN 1 tablet Active Gemfibrozil 600 MG Orally Twice a day 1 tablet 12h Active RESULTS Name Result Date Reference Range A1C (IN HOUSE) 2017-10-02 A1C IN HOUSE 5.7 4.3 - 5.6 % Previous A1c 5.4 Lot [id number] Exp date 05/2019 PROCEDURES Procedure Date Ordered Result Body Site GLYCATED HEMOGLOBIN TEST October 02, 2017 [facility] VISIT ESTABLISHED PATIENT October 02, 2017 INSTRUCTIONS MEDICATIONS ADMINISTERED No Known Medications MEDICAL [...]
--- OUTSIDE RECORDS SUMMARY | 2019-08-26 07:09 | XMS REPORT ---
Author Author Fernando MUÑOZ Organization [facility] Address [address] [place] [address] Care Team Providers Care Ditch Tender Name Role Phone SHAYY MUÑOZ Unavailable PROBLEMS Type Condition ICD9-CM Code RCD42-GH Code Onset Dates Condition S tatus SNOMED Code Problem 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 E78.2 Active 252714443 Problem Essential hypertension I10 Active 80958335 Problem Chronic osteomyelitis M86.60 Active 47463053 Problem Type 2 diabetes mellitus wit h other specified complication, without long-term current use of insulin E11.69 Active 75113465 Problem Chronic pain syndrome G89.4 Active 566867023 Problem Incontinence of feces, unspecified fecal incontinence type R15.9 Active 23009972 Problem Status post total bilateral knee replacement Z96.6 53 Active 4717795492409 Problem Wheel chair as ambulatory aid Z99.3 Active 658979563 ALLERGIES No Information ENCOUNTERS Encounter Location Date Diagnosis [place] [address] [facility] [id number] [address] [place] [address] Sep, Wound of left foot S91.302A [place] [address] [facility] [id number] [address] [place] [address] Sep, Wound of left foot S91.302A and Type 2 diabetes mellitus with other specified complication, without long-term current use of insulin E11.69 [facility] [address] [facility] [id number] [address] [place] [phone] July, Cough R05 [facility] [address] [facility] [id number] [address] [place] [phone] July, [place] [id number] [facility] [id number] [address] [place] [phone] July, Type 2 diabetes mellitus wit h other specified complication, without long-term current use of insulin E11.69 ; 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 E78.2 and Left hand pain M79.642 [facility] [address] [id number] [address] [place] [phone] May, [facility] [address] [id number] [address] [place] [phone] Apr, [facility] [address] [id number] [address] [place] [phone] Apr, [facility] [address] [id number] [address] [place] [address] Apr, [facility] [address] [id number] [address] [place] [phone] Mar, Chronic osteomyelitis M86.60 ; S/p total knee replacement, bilateral Z96.653 ; Incontinence of feces, unspecified fecal incontinence type R15.9 and Chronic pain syndrome G89.4 [facility] [address] [id number] [address] [place] [phone] Mar, [facility] [address] [id number] [address] [place] [phone] Mar, [facility] [address] [id number] [address] [place] [phone] Mar, [facility] [address] [facility] [id number] [address] [place] [address] Feb, Chronic osteomyelitis M86.60 ; Status post total bilateral knee replacement Z96.653 ; Incontinence of feces, unspecified fecal incontinence type R15.9 and Chronic pain syndrome G89.4 [facility] [address] [id number] [address] [place] [phone] Feb, [facility] [address] [facility] [id number] [address] [place] [phone] Jan, Encounter for immunization Z 23 [facility] [address] [id number] [address] [place] [phone] Nov, [facility] [address] [id number] [address] [place] [phone] Oct, [facility] [address] [id number] [address] [place] [phone] Sep, Type 2 diabetes mellitus wit hout complications E11.9 ; 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 E78.2 ; Essential hypertension I10 and Incontinence of feces, unspecified fecal incontinence type R15.9 [facility] [address] [id number] [address] [place] [phone] Sep, [facility] [address] [id number] [address] [place] [phone] Aug, [facility] [address] [id number] [address] [place] [phone] Aug, [facility] [address] [facility] [id number] [address] [place] [phone] July, [facility] [address] [id number] [address] [place] [phone] July, [facility] [address] [id number] [address] [place] [phone] July, [facility] [address] [facility] [id number] [address] [place] [address] May, Type 2 diabetes mellitus wit hout complications E11.9 ; Chronic pain syndrome G89.4 ; Incontinence of feces, unspecified fecal incontinence type R15.9 and 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 E78.2 [facility] [address] [id number] [address] [place] [phone] May, [facility] [address] [id number] [address] [place] [phone] May, [facility] [address] [facility] [id number] [address] [place] [phone] Apr, [facility] [address] [facility] [id number] [address] [place] [phone] Mar, [facility] [address] [id number] [address] [place] [phone] Jan, 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 E78.2 ; Type 2 diabetes mellitus without complications E11.9 ; [facility] current use of insulin Z79.4 and Essential hypertension I10 [facility] [id number] [place] [address] Dec, 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 E78.2 ; 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 hitis J40 IMMUNIZATIONS No Known Immunizations SOCIAL HISTORY Never Assessed REASON FOR VISIT [facility] PLAN OF CARE VITAL SIGNS MEDICATIONS Unknown [...]
--- OUTSIDE RECORDS SUMMARY | 2019-08-26 07:09 | XMS REPORT ---
Author Author Fernando MUÑOZ Organization [facility] Address [address] [place] [address] Care Team Providers Care Manager Registration Name Role Phone SHAYY MUÑOZ Unavailable PROBLEMS Type Condition ICD9-CM Code LBN50-JP Code Onset Dates Condition S tatus SNOMED Code Problem Type 2 diabetes mellitus without complications E11 .9 Active 14922516 Problem 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 E78.2 Active 891463061 Problem Chronic osteomyelitis M86.60 Active 97589116 Problem Wheel chair as ambulatory aid Z99.3 Active 476404476 Problem Chronic pain syndrome G89.4 Active 293071262 Problem Essential hypertension I10 Active 34991096 Problem Status post total bilateral knee replacement Z96.6 53 Active 4572060853966 Problem Incontinence of feces, unspecified fecal incontinence type R15.9 Active 97603159 ALLERGIES No Information ENCOUNTERS Encounter Location Date Diagnosis [facility] [address] [facility] [id number] [address] [place] [phone] Nov, [facility] [address] [facility] [id number] [address] [place] [phone] Oct, [facility] [address] [facility] [id number] [address] [place] [phone] Sep, Type 2 diabetes mellitus wit hout complications E11.9 ; 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 E78.2 ; Essential hypertension I10 and Incontinence of feces, unspecified fecal incontinence type R15.9 [facility] [address] [facility] [id number] [address] [place] [address] Sep, [facility] [address] [facility] [id number] [address] [place] [phone] Aug, [facility] [address] [facility] [id number] [address] [place] [phone] Aug, [facility] [address] [facility] [id number] [address] [place] [phone] July, [facility] [address] [id number] [address] [place] [address] July, [facility] [address] [facility] [id number] [address] [place] [phone] July, [facility] [address] [facility] [id number] [address] [place] [address] May, Type 2 diabetes mellitus wit hout complications E11.9 ; Chronic pain syndrome G89.4 ; Incontinence of feces, unspecified fecal incontinence type R15.9 and 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 E78.2 [facility] [address] [facility] [id number] [address] [place] [address] May, [facility] [address] [place] [id number] [address] [place] [phone] May, [facility] [address] [place] [id number] [address] [place] [phone] Apr, [facility] [address] [facility] [id number] [address] [place] [address] Mar, [facility] [address] [place] [id number] [place] [phone] Jan, 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 E78.2 ; Type 2 diabetes mellitus without complications E11.9 ; 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 and Essential hypertension I10 [facility] [address] [facility] [id number] [address] [place] [address] Dec, 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 E78.2 ; 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 ; Type 2 diabetes mellitus without complications E11.9 ; Essential hypertension I10 and Encounter for immunization Z23 [facility] [address] [facility] [id number] [address] [place] [phone] Dec, [facility] [address] [place] [id number] [address] [place] [phone] May, Candidiasis of scrotum B37.4 9 [facility] [address] [facility] [id number] [address] [address] May, Candidiasis of scrotum B37.4 9 [facility] [address] [facility] [id number] [place] [address] May, Tinea cruris B35.6 and [facility] hitis J40 IMMUNIZATIONS No Known Immunizations SOCIAL HISTORY Never Assessed REASON FOR VISIT Medication refill request PLAN OF CARE VITAL SIGNS MEDICATIONS Medication Instructions Dosage Frequency Start Date End Date Duration S tatus Metoprolol Tartrate 25 MG Orally Once a day at bedtime 0.5 tablet wit h food Active RESULTS No Results PROCEDURES No Known [...]
--- OUTSIDE RECORDS SUMMARY | 2019-08-26 07:09 | XMS REPORT ---
Author Fernando West Organization [facility] Address [address] [place] [address] Care Team Providers Care Superintendent Maintenance Airports Name Role Phone MELLO KENNEY Unavailable PROBLEMS Type Condition ICD9-CM Code [id number] Code Onset Dates Condition S tatus SNOMED Code Problem Type 2 diabetes mellitus without complications E11 .9 Active 30714388 Problem 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 E78.2 Active 808782694 Problem Chronic osteomyelitis M86.60 Active 73294399 Problem Wheel chair as ambulatory aid Z99.3 Active 118694532 Problem Chronic pain syndrome G89.4 Active 256058407 Problem Essential hypertension I10 Active 66571772 Problem Status post total bilateral knee replacement Z96.6 53 Active 1030360305843 Problem Incontinence of feces, unspecified fecal incontinence type R15.9 Active 56601275 ALLERGIES No Information ENCOUNTERS Encounter Location Date Diagnosis [place] [id number] [address] [place] [phone] Feb, [place] [address] [place] [id number] [address] [place] [phone] Jan, Encounter for immunization Z 23 [place] [address] [place] [id number] [address] [place] [phone] Nov, [place] [address] [facility] [id number] [address] [place] [phone] Oct, [place] [address] [place] [id number] [address] [place] [phone] Sep, Type 2 diabetes mellitus wit hout complications E11.9 ; 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 E78.2 ; Essential hypertension I10 and Incontinence of feces, unspecified fecal incontinence type R15.9 [place] [facility] [id number] [address] [place] [phone] Sep, [place] [address] [facility] [id number] [address] [place] [phone] Aug, [facility] [address] [facility] [id number] [address] [place] [phone] Aug, [facility] [address] [facility] [id number] [address] [place] [phone] July, [facility] [address] [facility] [id number] [address] [place] [phone] July, [facility] [address] [facility] [id number] [address] [place] [phone] July, [facility] [address] [place] [id number] [place] [phone] May, Type 2 diabetes mellitus wit hout complications E11.9 ; Chronic pain syndrome G89.4 ; Incontinence of feces, unspecified fecal incontinence type R15.9 and 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 E78.2 [facility] [address] [place] [id number] [address] [place] [phone] May, [facility] [address] [facility] [id number] [address] [place] [phone] May, [facility] [address] [place] [id number] [address] [place] [phone] Apr, [facility] [address] [place] [id number] [address] [place] [phone] Mar, [facility] [address] [place] [id number] [address] [place] [phone] Jan, 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 E78.2 ; Type 2 diabetes mellitus without complications E11.9 ; 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 [address] [facility] [id number] [address] [place] [phone] 10 May, 2016 Candidiasis of scrotum B37.4 9 [facility] [address] [facility] [id number] [address] [place] [phone] May, Candidiasis of scrotum B37.4 9 [facility] [address] [facility] [id number] [address] [place] [phone] May, Tinea cruris B35.6 and [facility] hitis J40 IMMUNIZATIONS Vaccine Route Administration Date Status FLUZONE HIGH DOSE 0.5ML (65 & UP) 2018 IM Intramuscular Feb 20, 2018 Administered SOCIAL HISTORY Never Assessed REASON FOR VISIT Immunization(s)-awoods PLAN OF CARE VITAL SIGNS MEDICATIONS Unknown Medications RESULTS No Results PROCEDURES Procedure Date Ordered Result Body Site FLUZONE HIGH DOSE (65 & UP) 2018 Feb 20, 2018 ADMN FLU VAC NO FEE SCHED SAME DAY Feb 20, 2018 SINGLE IMMUNIZATION ADMIN Feb 20, 2018 INSTRUCTIONS MEDICATIONS ADMINISTERED No Known Medications MEDICAL [...]
--- OUTSIDE RECORDS SUMMARY | 2019-08-26 07:10 | XMS REPORT ---
Author Author Fernando MUÑOZ Organization [facility] Address [address] [place] [address] Care Team Providers Care Blue Leather Setter Name Role Phone SHAYY MUÑOZ Unavailable PROBLEMS Type Condition ICD9-CM Code [id number] Code Onset Dates Condition S tatus SNOMED Code Problem Chronic pain syndrome G89.4 Active 984048512 Problem Incontinence of feces, unspecified fecal incontinence type R15.9 Active 92567063 Problem Type 2 diabetes mellitus without complications E11 .9 Active 25276748 Problem 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 E78.2 Active 962717567 Problem assisted current use of insulin Z79.4 Active 302165291 Problem Essential hypertension I10 Active 47817129 ALLERGIES No Information ENCOUNTERS Encounter Location Date Diagnosis [facility] [address] [facility] [id number] [address] [place] [phone] July, [facility] [address] [facility] [id number] [address] [place] [phone] May, Type 2 diabetes mellitus wit hout complications E11.9 ; Chronic pain syndrome G89.4 ; Incontinence of feces, unspecified fecal incontinence type R15.9 and 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 E78.2 [facility] [address] [facility] [id number] [address] [place] [phone] May, [facility] [address] [facility] [id number] [address] [place] [phone] May, [facility] [address] [facility] [id number] [address] [place] [phone] Apr, [facility] [address] [facility] [id number] [address] [place] [phone] Mar, [facility] [address] [facility] [id number] [address] [place] [phone] Jan, 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 E78.2 ; Type 2 diabetes mellitus without complications E11.9 ; 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 and Essential hypertension I10 [address] [address] Dec, 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 E78.2 ; assisted current use of insulin Z79.4 ; Type 2 diabetes mellitus without complications E11.9 ; Essential hypertension I10 and Encounter for immunization Z23 [address] [address] Dec, [facility] [address] [phone] May, Candidiasis of scrotum B37.4 9 [facility] [address] [address] May, Candidiasis of scrotum B37.4 9 [facility] [address] [address] May, Tinea cruris B35.6 and [facility] hitis J40 IMMUNIZATIONS No Known Immunizations SOCIAL HISTORY Never Assessed REASON FOR VISIT Lab (walk-in) PLAN OF CARE VITAL SIGNS MEDICATIONS Unknown Medications RESULTS No Results PROCEDURES Procedure Date Ordered Result Body Site LAB NOT BILLED BY [facility] Jan 23, 2017 Hemoglobin Test Send Out 0 dollar Jan 23, 2017 VENIPUNCT, ROUTINE* Jan 23, 2017 INSTRUCTIONS MEDICATIONS ADMINISTERED No Known Medications [...]
--- OUTSIDE RECORDS SUMMARY | 2019-08-26 07:10 | XMS REPORT ---
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 Z79.4 Active 916624418 Problem Essential hypertension I10 Active 98855048 ALLERGIES No Information ENCOUNTERS Encounter Location Date Diagnosis [facility] [address] [facility] [id number] [address] [place] [phone] Sep, [facility] [address] [facility] [id number] [address] [place] [phone] Sep, [facility] [address] [facility] [id number] [address] [place] [phone] Aug, [facility] [address] [facility] [id number] [address] [place] [phone] Aug, [facility] [address] [facility] [id number] [address] [place] [phone] July, [facility] [address] [facility] [id number] [address] [place] [phone] July, [facility] [address] [facility] [id number] [address] [place] [phone] July, [facility] [address] [facility] [id number] [address] [place] [phone] May, Type 2 diabetes mellitus wit hout complications E11.9 ; Chronic pain syndrome G89.4 ; Incontinence of feces, unspecified fecal incontinence type R15.9 and 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 E78.2 [place] [address] [address] May, [place] [address] [address] May, [place] [address] [address] Apr, [place] [address] [address] Mar, [address] [address] Jan, 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 E78.2 ; Type 2 diabetes mellitus without complications E11.9 ; penitentiary current use of insulin Z79.4 and Essential hypertension I10 [address] [address] Dec, 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 E78.2 ; penitentiary current use of insulin Z79.4 ; Type 2 diabetes mellitus without complications E11.9 ; Essential hypertension I10 and Encounter for immunization Z23 [address] [address] Dec, [facility] [address] [address] May, Candidiasis of scrotum B37.4 9 [facility] [address] [address] May, Candidiasis of scrotum B37.4 9 [facility] [address] [address] May, Tinea cruris B35.6 and [facility] hitis J40 IMMUNIZATIONS No Known Immunizations SOCIAL HISTORY Never Assessed REASON FOR VISIT refill request PLAN OF CARE VITAL SIGNS MEDICATIONS Medication Instructions Dosage Frequency Start Date End Date Duration S yesica Metoprolol Tartrate 25 MG Orally Once a day at bedtime 0.5 tablet wit h food Active Metformin HCl 1000 MG Orally Twice a day 1 tablet with meals 12h Active Lisinopril 5 mg Orally Once a day 1 tablet 24h Active RESULTS No Results PROCEDURES No [...]
--- OUTSIDE RECORDS SUMMARY | 2019-08-26 07:10 | XMS REPORT ---
Author Author Fernando MUÑOZ Organization [facility] Address [address] [place] [address] Care Team Providers Care Bullard Machine Operator Name Role Phone SHAYY MUÑOZ Unavailable PROBLEMS Type Condition ICD9-CM Code [id number] Code Onset Dates Condition S tatus SNOMED Code Problem Type 2 diabetes mellitus without complications E11 .9 Active 69159888 Problem 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 E78.2 Active 424357433 Problem Chronic osteomyelitis M86.60 Active 88732624 Problem Wheel chair as ambulatory aid Z99.3 Active 131968132 Problem Chronic pain syndrome G89.4 Active 056762976 Problem Essential hypertension I10 Active 45808317 Problem Status post total bilateral knee replacement Z96.6 53 Active 7094174489192 Problem Incontinence of feces, unspecified fecal incontinence type R15.9 Active 99049642 ALLERGIES No Known Allergies ENCOUNTERS Encounter Location Date Diagnosis [facility] [address] [facility] [id number] [address] [place] [phone] Sep, Type 2 diabetes mellitus wit hout complications E11.9 ; 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 E78.2 ; Essential hypertension I10 and Incontinence of feces, unspecified fecal incontinence type R15.9 [facility] [address] [facility] [id number] [address] [place] [phone] Sep, [facility] [address] [facility] [id number] [address] [place] [phone] Aug, [facility] [address] [facility] [id number] [address] [place] [phone] Aug, [facility] [address] [facility] [id number] [address] [place] [phone] July, [facility] [address] [facility] [id number] [address] [place] [phone] July, [facility] [address] [address] July, [facility] [address] [address] May, Type 2 diabetes mellitus wit hout complications E11.9 ; Chronic pain syndrome G89.4 ; Incontinence of feces, unspecified fecal incontinence type R15.9 and 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 E78.2 [place] [address] [address] May, [place] [address] [address] May, [place] [address] [address] Apr, [place] [address] [address] Mar, [place] [address] [address] Jan, 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 E78.2 ; Type 2 diabetes mellitus without complications E11.9 ; correction current use of insulin Z79.4 and Essential hypertension I10 [place] [address] [address] Dec, 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 E78.2 ; 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 [phone] 07 May, 2016 Candidiasis of scrotum B37.4 9 [facility] [address] [address] May, Tinea cruris B35.6 and [facility] hitis J40 IMMUNIZATIONS No Known Immunizations SOCIAL HISTORY Never Assessed REASON FOR VISIT Diabetes-ZAKIYA Butterfield PLAN OF CARE Activity Details Follow Up 4 Weeks with Becky dunlap Reason: VITAL SIGNS Height 73 in 2017-06-11 Weight 270 lbs 2017-06-11 Temperature 97.6 degrees Fahrenheit 2017-06-11 Heart Rate 88 bpm 2017-06-11 Respiratory Rate 2017-06-11 BMI 35.62 kg/m2 2017-06-11 Blood pressure systolic 128 mmHg 2017-06-11 Blood pressure diastolic 72 mmHg 2017-06-11 MEDICATIONS Medication Instructions Dosage Frequency Start Date End Date Duration S tatus Colace 100 MG Orally Once a day 1 capsule as needed 24h Active ZyrTEC Active Nystatin 766267 UNIT/GM Externally Twice a day 1 application to affected area 12h May, Not-Taking Potassium Chloride ER 10 MEQ Orally Twice a day 1 capsule with food 12h Active Metoprolol Tartrate 25 MG Orally Once a day at bedtime 0.5 tablet wit h food Active Lisinopril 5 mg Orally Once a day 1 tablet 24h Active Hydrocodone-Acetaminophen 5-325 MG Orally 2 times a day prn 1 ta blet as needed Active ASA 1 tab Active Zocor 10 MG Orally Once a day 1 tablet in the evening 24h Not-Taking Metformin HCl 1000 MG Orally Twice a day 1 tablet with meals 12h Active Simvastatin 10 mg Orally Once a day 1 tablet in the evening 24h Active Ferrous Sulfate 325 (65 Fe) MG Orally Once a day 1 tablet 24h Not-Taking Neurontin 300 MG Orally 3 times a day 1 capsule 8h Active Benadryl Active Gemfibrozil 600 MG Orally Twice a day 1 tablet 12h Active Paxil 20 mg Orally Once a day 1 tablet in the morning 24h Active Oxycodone HCl 5 MG/5ML Orally every 6 hrs 5 ml as needed 6h Not-Taking Prevacid 15 MG Orally Once a day 1 capsule 24h Active Xanax 0.5 MG Orally Twice a day 1 tablet 12h Active RESULTS Name Result Date Reference Range A1C (IN HOUSE) 2017-06-11 A1C IN HOUSE 5.4 4.3 - 5.6 % Previous A1c 5.4 Lot [id number] Exp date 01/2019 PROCEDURES Procedure Date Ordered Result Body Site GLYCATED HEMOGLOBIN TEST June 11, 2017 [facility] ESTABLISHED PATIENT June 11, 2017 INSTRUCTIONS MEDICATIONS ADMINISTERED No Known Medications [...]
--- OUTSIDE RECORDS SUMMARY | 2019-08-26 07:10 | XMS REPORT ---
Author Author Fernando GUY Organization [facility] Address [address] [place] [address] Care Team Providers Care Media Center Assistant Name Role Phone ANKITA GUY Unavailable PROBLEMS Unknown Problems ALLERGIES No Known Allergies SOCIAL HISTORY Never Assessed PLAN OF CARE VITAL SIGNS Height 73 in 2016-05-23 Weight 227.0 lbs 2016-05-23 Temperature 98.2 degrees Fahrenheit 2016-05-23 Heart Rate 80 bpm 2016-05-23 Respiratory Rate 18 2016-05-23 BMI 29.95 kg/m2 2016-05-23 Blood pressure systolic 114 mmHg 2016-05-23 Blood pressure diastolic 68 mmHg 2016-05-23 MEDICATIONS Medication Instructions Dosage Frequency Start Date End Date Duration S tatus Colace 100 MG Orally Once a day 1 capsule as needed 24h Active Gemfibrozil 600 MG Orally Twice a day 1 tablet 12h Active Lovenox 40 MG/0.4ML Subcutaneous Once a day 0.4 ml 24h Active Keflex 500 MG Orally every 12 hrs 1 capsule 12h Active Neurontin 100 MG Active Tylenol 325 MG Orally every 6 hrs 2 tablets as needed 6h Active Metformin HCl 1000 MG Orally Twice a day 1 tablet with meals 12h Active Metoprolol Tartrate 25 MG Orally Twice a day 1 tablet with food 12h Active Ferrous Sulfate 325 (65 Fe) MG Orally Once a day 1 tablet 24h Active Doxycycline Hyclate 100 mg Orally every 12 hrs 1 capsule 12h May, May, 10 days Active Prevacid 15 MG Orally Once a day 1 capsule 24h Active Xanax 0.5 MG Orally Twice a day 1 tablet 12h Active Paxil 20 MG Orally Once a day 1 tablet in the morning 24h Active Nystatin 103194 UNIT/GM Externally Twice a day 1 application to affected area 12h May, Active ZyrTEC Active Lisinopril 5 MG Orally Once a day 1 tablet 24h Active ASA 1 tab Active Oxycodone HCl 5 MG/5ML Orally every 6 hrs 5 ml as needed 6h Active RESULTS No Results PROCEDURES Procedure Date Ordered Result Body Site [facility] VISIT ESTABLISHED PATIENT May 23, 2016 IMMUNIZATIONS No Known Immunizations MEDICAL (GENERAL) HISTORY Type Description Date Medical History diabetes Medical History HTN Medical History osteoarthritis Medical History GERD Medical History Rheumatoid Arthritis Surgical History Bilateral Total Knee Replacements 2001 Surgical History Back Surgery 2001 Surgical History 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
--- OUTSIDE RECORDS SUMMARY | 2019-08-26 07:10 | XMS REPORT ---
Author Author Fernando MUÑOZ Organization [facility] Address [address] [place] [address] Care Team Providers Care Fall Intern Name Role Phone SHAYY MUÑOZ Unavailable PROBLEMS Type Condition ICD9-CM Code [id number] Code Onset Dates Condition S tatus SNOMED Code Problem Chronic pain syndrome G89.4 Active 590274212 Problem Incontinence of feces, unspecified fecal incontinence type R15.9 Active 54945710 Problem Type 2 diabetes mellitus without complications E11 .9 Active 80878272 Problem 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 E78.2 Active 311524252 Problem [facility] current use of insulin Z79.4 Active 661909099 Problem Essential hypertension I10 Active 78838075 ALLERGIES No Information ENCOUNTERS Encounter Location Date Diagnosis [facility] [address] [place] [id number] [address] [place] [phone] Sep, [facility] [address] [facility] [id number] [address] [place] [phone] Aug, [facility] [address] [place] [id number] [place] [phone] Aug, [facility] [address] [facility] [id number] [address] [place] [phone] July, [facility] [address] [place] [id number] [place] [phone] July, [facility] [address] [facility] [id number] [address] [place] [phone] July, [facility] [address] [place] [id number] [place] [address] May, Type 2 diabetes mellitus wit hout complications E11.9 ; Chronic pain syndrome G89.4 ; Incontinence of feces, unspecified fecal incontinence type R15.9 and 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 E78.2 [place] [address] [facility] [id number] [address] [place] [phone] May, [place] [address] [place] [id number] [place] [phone] May, [place] [address] [facility] [id number] [address] [place] [phone] Apr, [place] [address] [address] Mar, [place] [address] [place] [id number] [place] [phone] Jan, 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 E78.2 ; Type 2 diabetes mellitus without complications E11.9 ; [facility] current use of insulin Z79.4 and Essential hypertension I10 [place] [address] [address] Dec, 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 E78.2 ; [facility] current use of insulin Z79.4 ; Type 2 diabetes mellitus without complications E11.9 ; Essential hypertension I10 and Encounter for immunization Z23 [place] [address] [place] [id number] [place] [phone] Dec, [facility] [place] [address] [address] May, Candidiasis of scrotum B37.4 9 [facility] [address] [address] May, Candidiasis of scrotum B37.4 9 [facility] N [place] [id number] [place] [phone] May, Tinea cruris B35.6 and [facility] hitis J40 IMMUNIZATIONS No Known Immunizations SOCIAL HISTORY Never Assessed REASON FOR VISIT Refill request PLAN OF CARE VITAL SIGNS MEDICATIONS Medication Instructions Dosage Frequency Start Date End Date Duration S tatus Gemfibrozil 600 MG Orally Twice a day 1 tablet 12h Active Potassium Chloride ER 10 MEQ Orally Twice a day 1 capsule with food 12h Active Neurontin 300 MG Orally 3 times a day 1 capsule 8h Active RESULTS No Results PROCEDURES No Known [...]
--- OUTSIDE RECORDS SUMMARY | 2019-08-26 07:10 | XMS REPORT ---
Author Author Fernando VAUGHN Organization [facility] Address [address] [place] [address] Care Team Providers Care School Psychologist Assistant Name Role Phone EVELYN VAUGHN Unavailable PROBLEMS Unknown Problems ALLERGIES No Information SOCIAL HISTORY Never Assessed PLAN OF CARE VITAL SIGNS MEDICATIONS Medication Instructions Dosage Frequency Start Date End Date Duration S tatus Ketoconazole 2 % Externally Twice a day 1 application to affected a britni 12h May, May, 14 days Active RESULTS No Results PROCEDURES No Known procedures IMMUNIZATIONS No Known Immunizations MEDICAL (GENERAL) HISTORY Type Description Date Medical History diabetes Medical History HTN Medical History osteoarthritis Medical History GERD Medical History Rheumatoid Arthritis Surgical History Bilateral Total Knee Replacements 2001 Surgical History Back Surgery 2001 Surgical History 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
--- OUTSIDE RECORDS SUMMARY | 2019-08-26 07:10 | XMS REPORT ---
Author Author Fernando VAUGHN Organization [facility] Address [address] [place] [address] Care Team Providers Care Personal Service Representative Name Role Phone MINH VAUGHNICE Unavailable PROBLEMS Unknown Problems ALLERGIES No Known Allergies SOCIAL HISTORY Never Assessed PLAN OF CARE Activity Details Follow Up prn Reason: VITAL SIGNS Height 73 in 2016-05-29 Weight 227.0 lbs 2016-05-29 Temperature 97.8 degrees Fahrenheit 2016-05-29 Heart Rate 80 bpm 2016-05-29 Respiratory Rate 20 2016-05-29 BMI 29.95 kg/m2 2016-05-29 Blood pressure systolic 110 mmHg 2016-05-29 Blood pressure diastolic 68 mmHg 2016-05-29 MEDICATIONS Medication Instructions Dosage Frequency Start Date End Date Duration S tatus Xanax 0.5 MG Orally Twice a day 1 tablet 12h Active Paxil 20 MG Orally Once a day 1 tablet in the morning 24h Active Neurontin 100 MG Active Lovenox 40 MG/0.4ML Subcutaneous Once a day 0.4 ml 24h Active Tylenol 325 MG Orally every 6 hrs 2 tablets as needed 6h Active Ferrous Sulfate 325 (65 Fe) MG Orally Once a day 1 tablet 24h Active Metoprolol Tartrate 25 MG Orally Twice a day 1 tablet with food 12h Active Metformin HCl 1000 MG Orally Twice a day 1 tablet with meals 12h Active Gemfibrozil 600 MG Orally Twice a day 1 tablet 12h Active Keflex 500 MG Orally every 12 hrs 1 capsule 12h Active Colace 100 MG Orally Once a day 1 capsule as needed 24h Active ZyrTEC Active Oxycodone HCl 5 MG/5ML Orally every 6 hrs 5 ml as needed 6h Active Prevacid 15 MG Orally Once a day 1 capsule 24h Active ASA 1 tab Active Nystatin 654927 UNIT/GM Externally Twice a day 1 application to affected area 12h May, Active Lisinopril 5 MG Orally Once a day 1 tablet 24h Active Ketoconazole 2 % Externally Twice a day 1 application to affected a britni 12h May, May, 14 days Active Fluconazole 150 MG Orally Once a day 1 tablet 24h May, May, 7 days Active RESULTS No Results PROCEDURES Procedure Date Ordered Result Body Site [facility] VISIT ESTABLISHED PATIENT May 29, 2016 IMMUNIZATIONS No Known Immunizations MEDICAL (GENERAL) HISTORY Type Description Date Medical History diabetes Medical History HTN Medical History osteoarthritis Medical History GERD Medical History Rheumatoid Arthritis Surgical History Bilateral Total Knee Replacements 2001 Surgical History Back Surgery 2001 Surgical History 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
--- OUTSIDE RECORDS SUMMARY | 2019-08-26 07:10 | XMS REPORT ---
Author Author Fernando MUÑOZ Organization [facility] Address [address] [place] [address] Care Team Providers Care Television Operator Name Role Phone SHAYY MUÑOZ Unavailable PROBLEMS Type Condition ICD9-CM Code [id number] Code Onset Dates Condition S tatus SNOMED Code Problem Type 2 diabetes mellitus without complications E11 .9 Active [id number] Problem 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 E78.2 Active 369719372 Problem Chronic osteomyelitis M86.60 Active 88137618 Problem Wheel chair as ambulatory aid Z99.3 Active 031994449 Problem Chronic pain syndrome G89.4 Active 378780574 Problem Essential hypertension I10 Active 84386346 Problem Status post total bilateral knee replacement Z96.6 53 Active [id number] Problem Incontinence of feces, unspecified fecal incontinence type R15.9 Active [id number] ALLERGIES No Information ENCOUNTERS Encounter Location Date Diagnosis [facility] [address] [facility] [id number] [address] [place] [phone] Sep, Type 2 diabetes mellitus wit hout complications E11.9 ; 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 E78.2 ; Essential hypertension I10 and Incontinence of feces, unspecified fecal incontinence type R15.9 [facility] [address] [facility] [id number] [address] [place] [phone] Sep, [facility] [address] [facility] [id number] [address] [place] [phone] Aug, [facility] [address] [facility] [id number] [address] [place] [phone] Aug, [facility] [address] [facility] [id number] [address] [place] [phone] July, [facility] [address] [facility] [id number] [address] [place] [phone] July, [facility] [address] [address] July, [facility] [address] [address] May, Type 2 diabetes mellitus wit hout complications E11.9 ; Chronic pain syndrome G89.4 ; Incontinence of feces, unspecified fecal incontinence type R15.9 and 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 E78.2 [place] [address] [address] May, [place] [address] [address] May, [place] [address] [address] Apr, [place] [address] [address] Mar, [place] [address] [address] Jan, 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 E78.2 ; Type 2 diabetes mellitus without complications E11.9 ; senior care current use of insulin Z79.4 and Essential hypertension I10 [place] [address] [address] Dec, 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 E78.2 ; senior care current use of insulin Z79.4 ; Type 2 diabetes mellitus without complications E11.9 ; Essential hypertension I10 and Encounter for immunization Z23 [place] [address] [address] Dec, [facility] [address] [place] [phone] May, Candidiasis of scrotum B37.4 9 [facility] [place] [address] [address] May, Candidiasis of scrotum B37.4 9 [facility] [place] [place] [address] [address] May, Tinea cruris B35.6 and [facility] hitis J40 IMMUNIZATIONS No Known Immunizations SOCIAL HISTORY Never Assessed REASON FOR VISIT refill PLAN OF CARE VITAL SIGNS MEDICATIONS Medication Instructions Dosage Frequency Start Date End Date Duration S yesica Simvastatin 10 mg Orally Once a day [...]
--- OUTSIDE RECORDS SUMMARY | 2019-08-26 07:10 | XMS REPORT ---
Author Author Fernando MUÑOZ Organization [facility] Address [address] [place] [address] Care Team Providers Care Tape Recorder Repairer Name Role Phone SHAYY MUÑOZ Unavailable PROBLEMS Type Condition ICD9-CM Code VVM80-HA Code Onset Dates Condition S tatus SNOMED Code Problem Type 2 diabetes mellitus without complications E11 .9 Active 28307999 Problem 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 E78.2 Active 939650284 Problem Chronic osteomyelitis M86.60 Active 14324998 Problem Wheel chair as ambulatory aid Z99.3 Active 762700131 Problem Chronic pain syndrome G89.4 Active 842379937 Problem Essential hypertension I10 Active 82721443 Problem Status post total bilateral knee replacement Z96.6 53 Active 3976263952352 Problem Incontinence of feces, unspecified fecal incontinence type R15.9 Active [id number] ALLERGIES No Information ENCOUNTERS Encounter Location Date Diagnosis [facility] [address] [facility] [id number] [address] [place] [phone] Sep, Type 2 diabetes mellitus wit hout complications E11.9 ; 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 E78.2 ; Essential hypertension I10 and Incontinence of feces, unspecified fecal incontinence type R15.9 [facility] [address] [facility] [id number] [address] [place] [phone] Sep, [facility] [address] [facility] [id number] [address] [place] [phone] Aug, [facility] [address] [facility] [id number] [address] [place] [phone] Aug, [facility] [address] [facility] [id number] [address] [place] [phone] July, [facility] [address] [facility] [id number] [address] [place] [phone] July, [facility] [address] [address] July, [facility] [address] [address] May, Type 2 diabetes mellitus wit hout complications E11.9 ; Chronic pain syndrome G89.4 ; Incontinence of feces, unspecified fecal incontinence type R15.9 and 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 E78.2 [place] [address] [address] May, [place] [address] [address] May, [place] [address] [address] Apr, [place] [address] [address] Mar, [place] [address] [address] Jan, 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 E78.2 ; Type 2 diabetes mellitus without complications E11.9 ; pen[facility]iary current use of insulin Z79.4 and Essential hypertension I10 [place] [address] [address] Dec, 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 E78.2 ; penitentiary current use of insulin Z79.4 ; Type 2 diabetes mellitus without complications E11.9 ; Essential hypertension I10 and Encounter for immunization Z23 [place] [address] [address] Dec, [facility] [address] [place] [phone] May, Candidiasis of scrotum B37.4 9 [facility] [address] [address] May, Candidiasis of scrotum B37.4 9 [facility] [address] [address] May, Tinea cruris B35.6 and [facility] hitis J40 IMMUNIZATIONS No Known Immunizations SOCIAL HISTORY Never Assessed REASON FOR VISIT refills PLAN OF CARE VITAL SIGNS MEDICATIONS Medication Instructions Dosage Frequency Start Date End Date Duration S yesica Metformin HCl 1000 MG Orally Twice a day 1 tablet with meals 12h Active Paxil 20 mg Orally Once [...]
--- OUTSIDE RECORDS SUMMARY | 2019-08-26 07:10 | XMS REPORT ---
Author Author Fernando MUÑOZ Organization [facility] Address [address] [place] [address] Care Team Providers Care Can Labeler Name Role Phone SHAYY MUÑOZ Unavailable PROBLEMS Type Condition ICD9-CM Code DAY70-SY Code Onset Dates Condition S tatus SNOMED Code Problem Type 2 diabetes mellitus without complications E11 .9 Active 87575069 Problem 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 E78.2 Active 002420562 Problem Chronic osteomyelitis M86.60 Active 99548973 Problem Wheel chair as ambulatory aid Z99.3 Active 647117437 Problem Chronic pain syndrome G89.4 Active 749501315 Problem Essential hypertension I10 Active 76550677 Problem Status post total bilateral knee replacement Z96.6 53 Active 3064662103913 Problem Incontinence of feces, unspecified fecal incontinence type R15.9 Active 89349085 ALLERGIES No Known Allergies ENCOUNTERS Encounter Location Date Diagnosis [facility] [address] [facility] [id number] [address] [place] [phone] Sep, Type 2 diabetes mellitus wit hout complications E11.9 ; 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 E78.2 ; Essential hypertension I10 and Incontinence of feces, unspecified fecal incontinence type R15.9 [facility] [address] [facility] [id number] [address] [place] [phone] Sep, [facility] [address] [facility] [id number] [address] [place] [phone] Aug, [facility] [address] [facility] [id number] [address] [place] [phone] Aug, [facility] [address] [facility] [id number] [address] [place] [phone] July, [facility] [address] [facility] [id number] [address] [place] [phone] July, [facility] [address] [address] July, [facility] [address] [address] May, Type 2 diabetes mellitus wit hout complications E11.9 ; Chronic pain syndrome G89.4 ; Incontinence of feces, unspecified fecal incontinence type R15.9 and 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 E78.2 [place] [address] [address] May, [place] [address] [address] May, [place] [address] [address] Apr, [place] [address] [address] Mar, [place] [address] [address] Jan, 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 E78.2 ; Type 2 diabetes mellitus without complications E11.9 ; long-term current use of insulin Z79.4 and Essential hypertension I10 [place] [address] [address] Dec, 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 E78.2 ; 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 ; Type 2 diabetes mellitus without complications E11.9 ; Essential hypertension I10 and Encounter for immunization Z23 [place] [address] [address] Dec, [facility] [address] [address] May, Candidiasis of scrotum B37.4 9 [facility] [address] [address] 07 May, 2016 Candidiasis of scrotum B37.4 9 [facility] [address] [address] May, Tinea cruris B35.6 and [facility] hitis J40 IMMUNIZATIONS Vaccine Route Administration Date Status FLUZONE HIGH DOSE (65 AND UP) 2016 IM Intramuscular Jan 17, 2017 Administered SOCIAL HISTORY Never Assessed REASON FOR VISIT [facility] Activity Details Follow Up 3 Months with Becky for CHM Reason: VITAL SIGNS Height 73 in 2017-01-17 Weight 254.0 lbs 2017-01-17 Temperature 97.6 degrees Fahrenheit 2017-01-17 Heart Rate 78 bpm 2017-01-17 Respiratory Rate 20 2017-01-17 BMI 33.51 kg/m2 2017-01-17 Blood pressure systolic 110 mmHg 2017-01-17 Blood pressure diastolic 62 mmHg 2017-01-17 MEDICATIONS Medication Instructions Dosage Frequency Start Date End Date Duration S tatus Ferrous Sulfate 325 (65 Fe) MG Orally Once a day 1 tablet 24h Unknown Simvastatin 10 MG Orally Once a day 1 tablet in the evening 24h Active Metoprolol Tartrate 25 MG Orally Once a day at bedtime 0.5 tablet wit h food Active Gemfibrozil 600 MG Orally Twice a day 1 tablet 12h Active Colace 100 MG Orally Once a day 1 capsule as needed 24h Active Prevacid 15 MG Orally Once a day 1 capsule 24h Active Benadryl Active Zocor 10 MG Orally Once a day 1 tablet in the evening 24h Unknown Hydrocodone-Acetaminophen 5-325 MG Orally 2 times a day prn 1 ta blet as needed Active Lisinopril 5 MG Orally Once a day 1 tablet 24h Active Paxil 20 mg Orally Once a day 1 tablet in the morning 24h Active Metformin HCl 1000 MG Orally Twice a day 1 tablet with meals 12h Active ASA 1 tab Active Oxycodone HCl 5 MG/5ML Orally every 6 hrs 5 ml as needed 6h Unknown Neurontin 300 MG Orally 3 times a day 1 capsule 8h Active ZyrTEC Active Potassium Chloride ER 10 MEQ Orally Twice a day 1 capsule with food 12h Active Xanax 0.5 MG Orally Twice a day 1 tablet 12h Active Nystatin 484179 UNIT/GM Externally Twice a day 1 application to affected area 12h May, Unknown RESULTS No Results PROCEDURES Procedure Date Ordered Result Body Site FLUZONE HIGH DOSE 65 AND UP 2015Jan 17, 2017 SINGLE IMMUNIZATION ADMIN Jan 17, 2017 [facility] VISIT ESTABLISHED PATIENT Jan 17, 2017 INSTRUCTIONS MEDICATIONS ADMINISTERED No Known Medications MEDICAL (GENERAL) HISTORY Type Description Date Medical History diabetes - does not check BS Medical History HTN Medical History osteoarthritis Medical History GERD Medical History Rheumatoid Arthritis Medical History hyperlipidemia Medical History Anxiety disorder Medical History depression Medical History obesity Medical History Chronic back pain Surgical History Bilateral Total Knee Replacements 2002 Surgical History Back Surgery 2001 Surgical History 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
--- OUTSIDE RECORDS SUMMARY | 2019-08-26 07:11 | XMS REPORT | Continuity of Care Document ---
Author Organization Unknown Address Unknown Phone Unavailable Allergies Active Description Code Type Severity Reaction Onset Reported/Identified Relationship to Patient Clinical Status Yes DOXYCYCLINE HYCLATE UNKNOWN UNKNOWN Yes No Known Drug Allergies [id number] Drug Allergy Unknown N/A 11/17/2011 Yes sacubitril [id number] Drug Allerg y Unknown N/A 05/06/2019 Yes valsartan [id number] Drug Allergy Unknown N/A 05/06/2019 Medications There is no data. Problems Date Dx Coded Attending Type Code Diagnosis Diagnosed By 11/08/2011 Ot 891.0 OPEN WND KNEE/LEG/ANKLE 11/08/2011 Ot E000.8 OTH ER EXTERNAL CAUSE STATUS 11/08/2011 Ot E849.0 ACC IDENT IN HOME 11/08/2011 Ot E888.0 FAL L STRIKING SHARP OBJECT 11/08/2011 Ot E920.8 ACC -CUTTING INSTRUM NEC 11/17/2011 Ot V58.32 ENC OUNTER FOR REMOVAL OF SUTURES 11/20/2011 Ot V58.32 ENC OUNTER FOR REMOVAL OF SUTURES 10/12/2015 Ot 272.4 HYPE RLIPIDEMIA NEC/NOS 10/12/2015 Ot 401.9 HYPE RTENSION NOS 10/13/2015 Ot 272.4 HYPE RLIPIDEMIA NEC/NOS 10/13/2015 Ot 401.9 HYPE RTENSION NOS 10/13/2015 Ot 272.4 HYPE RLIPIDEMIA NEC/NOS 10/13/2015 Ot 401.9 HYPE RTENSION NOS 10/14/2015 CATRACHITO ZHANG DO Ot B95.1 STREPTOCOCCUS, GROUP B, CAUSING DISEASES 10/14/2015 CATRACHITO ZHANG DO Ot E11.65 TYPE 2 DIABETES MELLITUS WITH HYPERGLYCE 10/14/2015 CATRACHITO ZHANG DO Ot E87.1 HYPO-OSMOLALITY AND HYPONATREMIA 10/14/2015 CATRACHITO ZHANG DO Ot E87.2 ACIDOSIS 10/14/2015 CATRACHITO ZHANG DO Ot E87.6 HYPOKALEMIA 10/14/2015 CATRACHITO ZHANG DO Ot F32.9 MAJOR DEPRESSIVE DISORDER, SINGLE EPISOD 10/14/2015 YVAN ZHANG DOI Ot F41.9 ANXIETY DISORDER, UNSPECIFIED 10/14/2015 YVAN ZHANG DOI Ot I10 ESSENTIAL (PRIMARY) HYPERTENSION 10/14/2015 YVAN ZHANG DOI Ot I95.9 HYPOTENSION, UNSPECIFIED 10/14/2015 VICENTE RAJAN CATRACHITO Ot K21.9 GASTRO-ESOPHAGEAL REFLUX DISEASE WITHOUT 10/14/2015 YVAN ZHANG DOI Ot M00.26 2 OTHER STREPTOCOCCAL ARTHRITIS, LEFT KNEE 10/14/2015 YVAN ZHANG DOI Ot M06.9 RHEUMATOID ARTHRITIS, UNSPECIFIED 10/14/2015 YVAN ZHANG DOI Ot M86.67 1 OTHER CHRONIC OSTEOMYELITIS, RIGHT ANKLE 10/14/2015 YVAN ZHANG DOI Ot N17.9 ACUTE KIDNEY FAILURE, UNSPECIFIED 10/14/2015 YVAN ZHANG DOI Ot R65.21 SEVERE SEPSIS WITH SEPTIC SHOCK 10/14/2015 YVAN ZHANG DOI Ot T84.54 XA INFECT/INFLM REACTION DUE TO INTERNAL LE 10/14/2015 VICENTE RAJAN CATRACHITO Ot Z87.89 1 PERSONAL HISTORY OF NICOTINE DEPENDENCE 10/14/2015 VICENTE RAJAN CATRACHIOT Ot Z96.65 2 PRESENCE OF LEFT ARTIFICIAL KNEE JOINT 10/14/2015 Ot 272.4 HYPE RLIPIDEMIA NEC/NOS 10/14/2015 Ot 401.9 HYPE RTENSION NOS 10/14/2015 CATRACHITO ZHANG DO Ot A40.1 SEPSIS DUE TO STREPTOCOCCUS, GROUP B 10/14/2015 CATRACHITO ZHANG DO Ot B95.1 STREPTOCOCCUS, GROUP B, CAUSING DISEASES 10/14/2015 YVAN ZHANG DOI Ot E11.65 TYPE 2 DIABETES MELLITUS WITH HYPERGLYCE 10/14/2015 YVAN ZHANG DOI Ot E87.1 HYPO-OSMOLALITY AND HYPONATREMIA 10/14/2015 YVAN ZHANG DOI Ot E87.2 ACIDOSIS 10/14/2015 YVAN ZHANG DOI Ot E87.6 HYPOKALEMIA 10/14/2015 YVAN ZHANG DOI Ot F32.9 MAJOR DEPRESSIVE DISORDER, SINGLE EPISOD 10/14/2015 YVAN ZHANG DOI Ot F41.9 ANXIETY DISORDER, UNSPECIFIED 10/14/2015 YVAN ZHANG DOI Ot I10 ESSENTIAL (PRIMARY) HYPERTENSION 10/14/2015 VICENTE RAJAN CATRACHITO Ot I95.9 HYPOTENSION, UNSPECIFIED 10/14/2015 YVAN ZHANG DOI Ot K21.9 GASTRO-ESOPHAGEAL REFLUX DISEASE WITHOUT 10/14/2015 VICENTE RAJAN CATRACHITO Ot M00.26 2 OTHER STREPTOCOCCAL ARTHRITIS, LEFT KNEE 10/14/2015 VICENTE RAJAN CATRACHITO Ot M06.9 RHEUMATOID ARTHRITIS, UNSPECIFIED 10/14/2015 YVAN ZHANG DOI Ot M86.67 1 OTHER CHRONIC OSTEOMYELITIS, RIGHT ANKLE 10/14/2015 VICENTE RAJAN CATRACHITO Ot N17.9 ACUTE KIDNEY FAILURE, UNSPECIFIED 10/14/2015 VICENTE RAJAN CATRACHITO Ot R65.21 SEVERE SEPSIS WITH SEPTIC SHOCK 10/14/2015 VICENTE RAJAN CATRACHITO Ot T84.54 XA INFECT/INFLM REACTION DUE TO INTERNAL LE 10/14/2015 VICENTE RAJAN CATRACHITO Ot Z87.89 1 PERSONAL HISTORY OF NICOTINE DEPENDENCE 10/14/2015 YVAN ZHANG DOI Ot Z96.65 2 PRESENCE OF LEFT ARTIFICIAL KNEE JOINT 10/14/2015 YVAN ZHANG DOI Ot A40.1 SEPSIS DUE TO STREPTOCOCCUS, GROUP B 10/14/2015 VICENTE RAJAN CATRACHITO Ot B95.1 STREPTOCOCCUS, GROUP B, CAUSING DISEASES 10/14/2015 VICENTE RAJAN CATRACHITO Ot E11.65 TYPE 2 DIABETES MELLITUS WITH HYPERGLYCE 10/14/2015 VICENTE RAJAN CATRACHITO Ot E87.1 HYPO-OSMOLALITY AND HYPONATREMIA 10/14/2015 VICENTE RAJAN CATRACHITO Ot E87.2 ACIDOSIS 10/14/2015 YVAN ZHANG DOI Ot E87.6 HYPOKALEMIA 10/14/2015 YVAN ZHANG DOI Ot F32.9 MAJOR DEPRESSIVE DISORDER, SINGLE EPISOD 10/14/2015 VICENTE RAJAN CATRACHITO Ot F41.9 ANXIETY DISORDER, UNSPECIFIED 10/14/2015 YVAN ZHANG DOI Ot I10 ESSENTIAL (PRIMARY) HYPERTENSION 10/14/2015 VICENTE RAJAN CATRACHITO Ot I95.9 HYPOTENSION, UNSPECIFIED 10/14/2015 VICENTE RAJAN CATRACHITO Ot K21.9 GASTRO-ESOPHAGEAL REFLUX DISEASE WITHOUT 10/14/2015 VICENTE RAJAN CATRACHITO Ot M00.26 2 OTHER STREPTOCOCCAL ARTHRITIS, LEFT KNEE 10/14/2015 VICENTE RAJAN CATRACHITO Ot M06.9 RHEUMATOID ARTHRITIS, UNSPECIFIED 10/14/2015 VICENTE RAJAN CATRACHITO Ot M86.67 1 OTHER CHRONIC OSTEOMYELITIS, RIGHT ANKLE 10/14/2015 VICENTE RAJAN CATRACHITO Ot N17.9 ACUTE KIDNEY FAILURE, UNSPECIFIED 10/14/2015 VICENTE RAJAN CATRACHITO Ot R65.21 SEVERE SEPSIS WITH SEPTIC SHOCK 10/14/2015 VICENTE RAJAN CATRACHITO Ot T84.54 XA INFECT/INFLM REACTION DUE TO INTERNAL LE 10/14/2015 VICENTE RAJAN CATRACHITO Ot Z87.89 1 PERSONAL HISTORY OF NICOTINE DEPENDENCE 10/14/2015 VICENTE RAJAN CATRACHITO Ot Z96.65 2 PRESENCE OF LEFT ARTIFICIAL KNEE JOINT 10/15/2015 VICENTE RAJAN CATRACHITO Ot A40.1 SEPSIS DUE TO STREPTOCOCCUS, GROUP B 10/15/2015 VICENTE RAJAN CATRACHITO Ot B95.1 STREPTOCOCCUS, GROUP B, CAUSING DISEASES 10/15/2015 VICENTE RAJAN CATRACHITO Ot E11.65 TYPE 2 DIABETES MELLITUS WITH HYPERGLYCE 10/15/2015 YVAN ZHANG DOI Ot E87.1 HYPO-OSMOLALITY AND HYPONATREMIA 10/15/2015 VICENTE RAJAN CATRACHITO Ot E87.2 ACIDOSIS 10/15/2015 VICENTE RAJAN CATRACHITO Ot E87.6 HYPOKALEMIA 10/15/2015 YVAN ZHANG DOI Ot F32.9 MAJOR DEPRESSIVE DISORDER, SINGLE EPISOD 10/15/2015 VICENTE RAJAN CATRACHITO Ot F41.9 ANXIETY DISORDER, UNSPECIFIED 10/15/2015 VICENTE RAJAN CATRACHITO Ot I10 ESSENTIAL (PRIMARY) HYPERTENSION 10/15/2015 YVAN ZHANG DOI Ot I95.9 HYPOTENSION, UNSPECIFIED 10/15/2015 YVAN ZHANG DOI Ot K21.9 GASTRO-ESOPHAGEAL REFLUX DISEASE WITHOUT 10/15/2015 VICENTE RAJAN CATRACHITO Ot M00.26 2 OTHER STREPTOCOCCAL ARTHRITIS, LEFT KNEE 10/15/2015 VICENTE RAJAN CATRACHITO Ot M06.9 RHEUMATOID ARTHRITIS, UNSPECIFIED 10/15/2015 YVAN ZHANG DOI Ot M86.67 1 OTHER CHRONIC OSTEOMYELITIS, RIGHT ANKLE 10/15/2015 VICENTE RAJAN CATRACHITO Ot N17.9 ACUTE KIDNEY FAILURE, UNSPECIFIED 10/15/2015 VICENTE RAJAN CATRACHITO Ot R65.21 SEVERE SEPSIS WITH SEPTIC SHOCK 10/15/2015 VICENTE RAJAN CATRACHITO Ot T84.54 XA INFECT/INFLM REACTION DUE TO INTERNAL LE 10/15/2015 ZHANG DO, CATRACHITO Ot Z87.89 1 PERSONAL HISTORY OF NICOTINE DEPENDENCE 10/15/2015 VICENTE RAJAN CATRACHITO Ot Z96.65 2 PRESENCE OF LEFT ARTIFICIAL KNEE JOINT 10/17/2015 VICENTE RAJAN ACTRACHITO Ot A40.1 SEPSIS DUE TO STREPTOCOCCUS, GROUP B 10/17/2015 ZHANG DO, CATRACHITO Ot B95.1 STREPTOCOCCUS, GROUP B, CAUSING DISEASES 10/17/2015 VICENTE RAJAN CATRACHITO Ot E11.65 TYPE 2 DIABETES MELLITUS WITH HYPERGLYCE 10/17/2015 VICENTE RAJAN CATRACHITO Ot E87.1 HYPO-OSMOLALITY AND HYPONATREMIA 10/17/2015 VICENTE RAJAN CATRACHITO Ot E87.2 ACIDOSIS 10/17/2015 VICENTE DO CATRACHITO Ot E87.6 HYPOKALEMIA 10/17/2015 VICENTE RAJAN CATRACHITO Ot F32.9 MAJOR DEPRESSIVE DISORDER, SINGLE EPISOD 10/17/2015 VICENTE RAJAN CATRACHITO Ot F41.9 ANXIETY DISORDER, UNSPECIFIED 10/17/2015 VICENTE RAJAN CATRACHITO Ot I10 ESSENTIAL (PRIMARY) HYPERTENSION 10/17/2015 VICENTE RAJAN CATRACHITO Ot I95.9 HYPOTENSION, UNSPECIFIED 10/17/2015 VICENTE RAJAN CATRACHITO Ot K21.9 GASTRO-ESOPHAGEAL REFLUX DISEASE WITHOUT 10/17/2015 VICENTE RAJAN CATRACHITO Ot M00.26 2 OTHER STREPTOCOCCAL ARTHRITIS, LEFT KNEE 10/17/2015 VICENTE RAJAN CATRACHITO Ot M06.9 RHEUMATOID ARTHRITIS, UNSPECIFIED 10/17/2015 VICENTE RAJAN CATRACHITO Ot M86.67 1 OTHER CHRONIC OSTEOMYELITIS, RIGHT ANKLE 10/17/2015 VICENTE RAJAN CATRACHITO Ot N17.9 ACUTE KIDNEY FAILURE, UNSPECIFIED 10/17/2015 VICENTE RAJAN CATRACHITO Ot R65.21 SEVERE SEPSIS WITH SEPTIC SHOCK 10/17/2015 VICENTE RAJAN CATRACHITO Ot T84.54 XA INFECT/INFLM REACTION DUE TO INTERNAL LE 10/17/2015 VICENTE RAJAN CATRACHITO Ot Z87.89 1 PERSONAL HISTORY OF NICOTINE DEPENDENCE 10/17/2015 VICENTE RAJAN CATRACHITO Ot Z96.65 2 PRESENCE OF LEFT ARTIFICIAL KNEE JOINT 10/17/2015 VICENTE RAJAN CATRACHITO Ot A40.1 SEPSIS DUE TO STREPTOCOCCUS, GROUP B 10/17/2015 VICENTE RAJAN CATRACHITO Ot B95.1 STREPTOCOCCUS, GROUP B, CAUSING DISEASES 10/17/2015 VICENTE RAJAN CATRACHITO Ot E11.65 TYPE 2 DIABETES MELLITUS WITH HYPERGLYCE 10/17/2015 VICENTE RAJAN CATRACHITO Ot E87.1 HYPO-OSMOLALITY AND HYPONATREMIA 10/17/2015 VICENTE RAJAN CATRACHITO Ot E87.2 ACIDOSIS 10/17/2015 VICENTE RAJAN CATRACHITO Ot E87.6 HYPOKALEMIA 10/17/2015 VICENTE RAJAN CATRACHITO Ot F32.9 MAJOR DEPRESSIVE DISORDER, SINGLE EPISOD 10/17/2015 VICENTE RAJAN CATRACHITO Ot F41.9 ANXIETY DISORDER, UNSPECIFIED 10/17/2015 VICENTE RAJAN CATRACHITO Ot I10 ESSENTIAL (PRIMARY) HYPERTENSION 10/17/2015 YVAN ZHANG DOI Ot I95.9 HYPOTENSION, UNSPECIFIED 10/17/2015 VICENTE RAJAN CATRACHITO Ot K21.9 GASTRO-ESOPHAGEAL REFLUX DISEASE WITHOUT 10/17/2015 VICENTE RAJAN CATRACHITO Ot M00.26 2 OTHER STREPTOCOCCAL ARTHRITIS, LEFT KNEE 10/17/2015 VICENTE RAJAN CATRACHITO Ot M06.9 RHEUMATOID ARTHRITIS, UNSPECIFIED 10/17/2015 VICENTE RAJAN CATRACHITO Ot M86.67 1 OTHER CHRONIC OSTEOMYELITIS, RIGHT ANKLE 10/17/2015 VICENTE RAJAN CATRACHITO Ot N17.9 ACUTE KIDNEY FAILURE, UNSPECIFIED 10/17/2015 VICENTE RAJAN CATRACHITO Ot R65.21 SEVERE SEPSIS WITH SEPTIC SHOCK 10/17/2015 VICENTE RAJAN CATRACHITO Ot T84.54 XA INFECT/INFLM REACTION DUE TO INTERNAL LE 10/17/2015 VICENTE RAJAN CATRACHITO Ot Z87.89 1 PERSONAL HISTORY OF NICOTINE DEPENDENCE 10/17/2015 VICENTE RAJAN CATRACHITO Ot Z96.65 2 PRESENCE OF LEFT ARTIFICIAL KNEE JOINT 10/17/2015 VICENTE RAJAN CATRACHITO Ot A40.1 SEPSIS DUE TO STREPTOCOCCUS, GROUP B 10/17/2015 VICENTE RAJAN CATRACHITO Ot B95.1 STREPTOCOCCUS, GROUP B, CAUSING DISEASES 10/17/2015 VICENTE RAJAN CATRACHITO Ot E11.65 TYPE 2 DIABETES MELLITUS WITH HYPERGLYCE 10/17/2015 VICENTE RAJAN CATRACHITO Ot E87.1 HYPO-OSMOLALITY AND HYPONATREMIA 10/17/2015 VICENTE RAJAN CATRACHITO Ot E87.2 ACIDOSIS 10/17/2015 ZHANG DO, CATRACHITO Ot E87.6 HYPOKALEMIA 10/17/2015 VICENTE RAJAN CATRACHITO Ot F32.9 MAJOR DEPRESSIVE DISORDER, SINGLE EPISOD 10/17/2015 VICENTE RAJAN CATRACHITO Ot F41.9 ANXIETY DISORDER, UNSPECIFIED 10/17/2015 VICENTE RAJAN CATRACHITO Ot I10 ESSENTIAL (PRIMARY) HYPERTENSION 10/17/2015 VICENTE RAJAN CATRACHITO Ot I95.9 HYPOTENSION, UNSPECIFIED 10/17/2015 VICENTE RAJAN CATRACHITO Ot K21.9 GASTRO-ESOPHAGEAL REFLUX DISEASE WITHOUT 10/17/2015 VICENTE RAJAN CATRACHITO Ot M00.26 2 OTHER STREPTOCOCCAL ARTHRITIS, LEFT KNEE 10/17/2015 VICENTE RAJAN CATRACHITO Ot M06.9 RHEUMATOID ARTHRITIS, UNSPECIFIED 10/17/2015 VICENTE RAJAN CATRACHITO Ot M86.67 1 OTHER CHRONIC OSTEOMYELITIS, RIGHT ANKLE 10/17/2015 VICENTE RAJAN CATRACHITO Ot N17.9 ACUTE KIDNEY FAILURE, UNSPECIFIED 10/17/2015 VICENTE RAJAN CATRACHITO Ot R65.21 SEVERE SEPSIS WITH SEPTIC SHOCK 10/17/2015 VICENTE RAJAN CATRACHITO Ot T84.54 XA INFECT/INFLM REACTION DUE TO INTERNAL LE 10/17/2015 VICENTE RAJAN CATRACHITO Ot Z87.89 1 PERSONAL HISTORY OF NICOTINE DEPENDENCE 10/17/2015 VICENTE RAJAN CATRACHITO Ot Z96.65 2 PRESENCE OF LEFT ARTIFICIAL KNEE JOINT 10/17/2015 VICENTE RAJAN CATRACHITO Ot A40.1 SEPSIS DUE TO STREPTOCOCCUS, GROUP B 10/17/2015 VICENTE RAJAN CATRACHITO Ot B95.1 STREPTOCOCCUS, GROUP B, CAUSING DISEASES 10/17/2015 VICENTE RAJAN CATRACHITO Ot E11.65 TYPE 2 DIABETES MELLITUS WITH HYPERGLYCE 10/17/2015 VICENTE RAJAN CATRACHITO Ot E87.1 HYPO-OSMOLALITY AND HYPONATREMIA 10/17/2015 VICENTE RAJAN CATRACHITO Ot E87.2 ACIDOSIS 10/17/2015 VICENTE RAJAN CATRACHITO Ot E87.6 HYPOKALEMIA 10/17/2015 VICENTE RAJAN CATRACHITO Ot F32.9 MAJOR DEPRESSIVE DISORDER, SINGLE EPISOD 10/17/2015 VICENTE RAJAN CATRACHITO Ot F41.9 ANXIETY DISORDER, UNSPECIFIED 10/17/2015 VICENTE RAJAN CATRACHITO Ot I10 ESSENTIAL (PRIMARY) HYPERTENSION 10/17/2015 VICENTE RAJAN CATRACHITO Ot I95.9 HYPOTENSION, UNSPECIFIED 10/17/2015 VICENTE RAJAN CATRACHITO Ot K21.9 GASTRO-ESOPHAGEAL REFLUX DISEASE WITHOUT 10/17/2015 VICENTE RAJAN CATRACHITO Ot M00.26 2 OTHER STREPTOCOCCAL ARTHRITIS, LEFT KNEE 10/17/2015 VICENTE RAJAN CATRACHITO Ot M06.9 RHEUMATOID ARTHRITIS, UNSPECIFIED 10/17/2015 VICENTE RAJAN CATRACHITO Ot M86.67 1 OTHER CHRONIC OSTEOMYELITIS, RIGHT ANKLE 10/17/2015 VICENTE RAJAN CATRACHITO Ot N17.9 ACUTE KIDNEY FAILURE, UNSPECIFIED 10/17/2015 VICENTE RAJAN CATRACHITO Ot R65.21 SEVERE SEPSIS WITH SEPTIC SHOCK 10/17/2015 VICENTE RAJAN CATRACHITO Ot T84.54 XA INFECT/INFLM REACTION DUE TO INTERNAL LE 10/17/2015 VICENTE RAJAN CATRACHITO Ot Z87.89 1 PERSONAL HISTORY OF NICOTINE DEPENDENCE 10/17/2015 VICENTE RAJAN CATRACHITO Ot Z96.65 2 PRESENCE OF LEFT ARTIFICIAL KNEE JOINT 10/17/2015 VICENTE RAJAN CATRACHITO Ot A40.1 SEPSIS DUE TO STREPTOCOCCUS, GROUP B 10/17/2015 VICENTE RAJAN CATRACHITO Ot B95.1 STREPTOCOCCUS, GROUP B, CAUSING DISEASES 10/17/2015 VICENTE RAJAN CATRACHITO Ot E11.65 TYPE 2 DIABETES MELLITUS WITH HYPERGLYCE 10/17/2015 VICENTE RAJAN CATRACHITO Ot E87.1 HYPO-OSMOLALITY AND HYPONATREMIA 10/17/2015 VICENTE RAJAN CATRACHITO Ot E87.2 ACIDOSIS 10/17/2015 VICENTE RAJAN CATRACHITO Ot E87.6 HYPOKALEMIA 10/17/2015 VICENTE RAJAN CATRACHITO Ot F32.9 MAJOR DEPRESSIVE DISORDER, SINGLE EPISOD 10/17/2015 VICENTE RAJAN CATRACHITO Ot F41.9 ANXIETY DISORDER, UNSPECIFIED 10/17/2015 VICENTE RAJAN CATRACHITO Ot I10 ESSENTIAL (PRIMARY) HYPERTENSION 10/17/2015 VICENTE RAJAN CATRACHITO Ot I95.9 HYPOTENSION, UNSPECIFIED 10/17/2015 VICENTE RAJAN CATRACHITO Ot K21.9 GASTRO-ESOPHAGEAL REFLUX DISEASE WITHOUT 10/17/2015 VICENTE RAJAN CATRACHITO Ot M00.26 2 OTHER STREPTOCOCCAL ARTHRITIS, LEFT KNEE 10/17/2015 VICENTE RAJAN CATRACHITO Ot M06.9 RHEUMATOID ARTHRITIS, UNSPECIFIED 10/17/2015 VICENTE RAJAN CATRACHITO Ot M86.67 1 OTHER CHRONIC OSTEOMYELITIS, RIGHT ANKLE 10/17/2015 VICENTE RAJAN CATRACHITO Ot N17.9 ACUTE KIDNEY FAILURE, UNSPECIFIED 10/17/2015 VICENTE RAJAN CATRACHITO Ot R65.21 SEVERE SEPSIS WITH SEPTIC SHOCK 10/17/2015 VICENTE RAJAN CATRACHITO Ot T84.54 XA INFECT/INFLM REACTION DUE TO INTERNAL LE 10/17/2015 VICENTE RAJAN CATRACHITO Ot Z87.89 1 PERSONAL HISTORY OF NICOTINE DEPENDENCE 10/17/2015 YVAN ZHANG DOI Ot Z96.65 2 PRESENCE OF LEFT ARTIFICIAL KNEE JOINT 10/18/2015 VICENTE RAJAN CATRACHITO Ot A40.1 SEPSIS DUE TO STREPTOCOCCUS, GROUP B 10/18/2015 YVAN ZHANG DOI Ot B95.1 STREPTOCOCCUS, GROUP B, CAUSING DISEASES 10/18/2015 YVAN ZHANG DOI Ot E11.65 TYPE 2 DIABETES MELLITUS WITH HYPERGLYCE 10/18/2015 YVAN ZHANG DOI Ot E87.1 HYPO-OSMOLALITY AND HYPONATREMIA 10/18/2015 YVAN ZHANG DOI Ot E87.2 ACIDOSIS 10/18/2015 YVAN ZHANG DOI Ot E87.6 HYPOKALEMIA 10/18/2015 YVAN ZHANG DOI Ot F32.9 MAJOR DEPRESSIVE DISORDER, SINGLE EPISOD 10/18/2015 VICENTE RAJAN CATRACHITO Ot F41.9 ANXIETY DISORDER, UNSPECIFIED 10/18/2015 VICENTE RAJAN CATRACHITO Ot I10 ESSENTIAL (PRIMARY) HYPERTENSION 10/18/2015 YVAN ZHANG DOI Ot I95.9 HYPOTENSION, UNSPECIFIED 10/18/2015 YVAN ZHANG DOI Ot K21.9 GASTRO-ESOPHAGEAL REFLUX DISEASE WITHOUT 10/18/2015 YVAN ZHANG DOI Ot M00.26 2 OTHER STREPTOCOCCAL ARTHRITIS, LEFT KNEE 10/18/2015 VICENTE RAJAN CATRACHITO Ot M06.9 RHEUMATOID ARTHRITIS, UNSPECIFIED 10/18/2015 CATRACHITO ZHANG DO Ot M86.67 1 OTHER CHRONIC OSTEOMYELITIS, RIGHT ANKLE 10/18/2015 YVAN ZHANG DOI Ot N17.9 ACUTE KIDNEY FAILURE, UNSPECIFIED 10/18/2015 VICENTE RAJAN CATRACHITO Ot R65.21 SEVERE SEPSIS WITH SEPTIC SHOCK 10/18/2015 YVAN ZHANG DOI Ot T84.54 XA INFECT/INFLM REACTION DUE TO INTERNAL LE 10/18/2015 YVAN ZHANG DOI Ot Z87.89 1 PERSONAL HISTORY OF NICOTINE DEPENDENCE 10/18/2015 YVAN ZHANG DOI Ot Z96.65 2 PRESENCE OF LEFT ARTIFICIAL KNEE JOINT 10/19/2015 YVAN ZHANG DOI Ot A40.1 SEPSIS DUE TO STREPTOCOCCUS, GROUP B 10/19/2015 YVAN ZHANG DOI Ot B95.1 STREPTOCOCCUS, GROUP B, CAUSING DISEASES 10/19/2015 YVAN ZHANG DOI Ot E11.65 TYPE 2 DIABETES MELLITUS WITH HYPERGLYCE 10/19/2015 YVAN ZHANG DOI Ot E87.1 HYPO-OSMOLALITY AND HYPONATREMIA 10/19/2015 YVAN ZHANG DOI Ot E87.2 ACIDOSIS 10/19/2015 YVAN ZHANG DOI Ot E87.6 HYPOKALEMIA 10/19/2015 YVAN ZHANG DOI Ot F32.9 MAJOR DEPRESSIVE DISORDER, SINGLE EPISOD 10/19/2015 YVAN ZHANG DOI Ot F41.9 ANXIETY DISORDER, UNSPECIFIED 10/19/2015 YVAN ZHANG DOI Ot I10 ESSENTIAL (PRIMARY) HYPERTENSION 10/19/2015 CATRACHITO ZHANG DO Ot I95.9 HYPOTENSION, UNSPECIFIED 10/19/2015 YVAN ZHANG DOI Ot K21.9 GASTRO-ESOPHAGEAL REFLUX DISEASE WITHOUT 10/19/2015 YVAN ZHANG DOI Ot M00.26 2 OTHER STREPTOCOCCAL ARTHRITIS, LEFT KNEE 10/19/2015 YVAN ZHANG DOI Ot M06.9 RHEUMATOID ARTHRITIS, UNSPECIFIED 10/19/2015 YVAN ZHANG DOI Ot M86.67 1 OTHER CHRONIC OSTEOMYELITIS, RIGHT ANKLE 10/19/2015 YVAN ZHANG DOI Ot N17.9 ACUTE KIDNEY FAILURE, UNSPECIFIED 10/19/2015 YVAN ZHANG DOI Ot R65.21 SEVERE SEPSIS WITH SEPTIC SHOCK 10/19/2015 VICENTE RAJAN CATRACHITO Ot T84.54 XA INFECT/INFLM REACTION DUE TO INTERNAL LE 10/19/2015 CATRACHITO ZHANG DO Ot Z87.89 1 PERSONAL HISTORY OF NICOTINE DEPENDENCE 10/19/2015 YVAN ZHANG DOI Ot Z96.65 2 PRESENCE OF LEFT ARTIFICIAL KNEE JOINT 10/19/2015 VICENTE RAJAN CATRACHITO Ot A40.1 SEPSIS DUE TO STREPTOCOCCUS, GROUP B 10/19/2015 YVAN ZHANG DOI Ot B95.1 STREPTOCOCCUS, GROUP B, CAUSING DISEASES 10/19/2015 CATRACHITO ZHANG DO Ot E11.65 TYPE 2 DIABETES MELLITUS WITH HYPERGLYCE 10/19/2015 CATRACHITO ZHANG DO Ot E87.1 HYPO-OSMOLALITY AND HYPONATREMIA 10/19/2015 CATRACHITO ZHANG DO Ot E87.2 ACIDOSIS 10/19/2015 CATRACHITO ZHANG DO Ot E87.6 HYPOKALEMIA 10/19/2015 CATRACHITO ZHANG DO Ot F32.9 MAJOR DEPRESSIVE DISORDER, SINGLE EPISOD 10/19/2015 CATRACHITO ZHANG DO Ot F41.9 ANXIETY DISORDER, UNSPECIFIED 10/19/2015 CATRACHITO ZHANG DO Ot I10 ESSENTIAL (PRIMARY) HYPERTENSION 10/19/2015 CATRACHITO ZHANG DO Ot I95.9 HYPOTENSION, UNSPECIFIED 10/19/2015 CATRACHITO ZHANG DO Ot K21.9 GASTRO-ESOPHAGEAL REFLUX DISEASE WITHOUT 10/19/2015 CATRACHITO ZHANG DO Ot M00.26 2 OTHER STREPTOCOCCAL ARTHRITIS, LEFT KNEE 10/19/2015 CATRACHITO ZHANG DO Ot M06.9 RHEUMATOID ARTHRITIS, UNSPECIFIED 10/19/2015 CATRACHITO ZHANG DO Ot M86.67 1 OTHER CHRONIC OSTEOMYELITIS, RIGHT ANKLE 10/19/2015 YVAN ZHANG DOI Ot N17.9 ACUTE KIDNEY FAILURE, UNSPECIFIED 10/19/2015 CATRACHITO ZHANG DO Ot R65.21 SEVERE SEPSIS WITH SEPTIC SHOCK 10/19/2015 CATRACHITO ZHANG DO Ot T84.54 XA INFECT/INFLM REACTION DUE TO INTERNAL LE 10/19/2015 YVAN ZHANG DOI Ot Z87.89 1 PERSONAL HISTORY OF NICOTINE DEPENDENCE 10/19/2015 CATRACHITO ZHANG DO Ot Z96.65 2 PRESENCE OF LEFT ARTIFICIAL KNEE JOINT 10/19/2015 YVAN ZHANG DOI Ot A40.1 SEPSIS DUE TO STREPTOCOCCUS, GROUP B 10/19/2015 YVAN ZHANG DOI Ot A41.02 SEPSIS DUE TO METHICILLIN RESISTANT STAP 10/19/2015 CATRACHITO ZHANG DO Ot B95.1 STREPTOCOCCUS, GROUP B, CAUSING DISEASES 10/19/2015 YVAN ZHANG DOI Ot D62 ACUTE POSTHEMORRHAGIC ANEMIA 10/19/2015 YVAN ZHANG DOI Ot D63.8 ANEMIA IN OTHER CHRONIC DISEASES CLASSIF 10/19/2015 CATRACHITO ZHANG DO Ot E11.65 TYPE 2 DIABETES MELLITUS WITH HYPERGLYCE 10/19/2015 CATRACHITO ZHANG DO Ot E83.42 HYPOMAGNESEMIA 10/19/2015 CATRACHITO ZHANG DO Ot E87.1 HYPO-OSMOLALITY AND HYPONATREMIA 10/19/2015 CATRACHITO ZHANG DO Ot E87.2 ACIDOSIS 10/19/2015 CATRACHITO ZHANG DO Ot E87.6 HYPOKALEMIA 10/19/2015 CATRACHITO ZHANG DO Ot F32.9 MAJOR DEPRESSIVE DISORDER, SINGLE EPISOD 10/19/2015 CATRACHITO ZHANG DO Ot G47.33 OBSTRUCTIVE SLEEP APNEA (ADULT) (PEDIATR 10/19/2015 CATRACHITO ZHANG DO Ot G93.41 METABOLIC ENCEPHALOPATHY 10/19/2015 CATRACHITO ZHANG DO Ot I08.1 RHEUMATIC DISORDERS OF BOTH MITRAL AND T 10/19/2015 CATRACHITO ZHANG DO Ot I10 ESSENTIAL (PRIMARY) HYPERTENSION 10/19/2015 CATRACHITO ZHANG DO Ot J44.9 CHRONIC OBSTRUCTIVE PULMONARY DISEASE, U 10/19/2015 CATRACHITO ZHANG DO Ot K21.9 GASTRO-ESOPHAGEAL REFLUX DISEASE WITHOUT 10/19/2015 CATRACHITO ZHANG DO Ot M00.26 1 OTHER STREPTOCOCCAL ARTHRITIS, RIGHT KNE 10/19/2015 CATRACHITO ZHANG DO Ot M00.26 2 OTHER STREPTOCOCCAL ARTHRITIS, LEFT KNEE 10/19/2015 CATRACHITO ZHANG DO Ot M06.9 RHEUMATOID ARTHRITIS, UNSPECIFIED 10/19/2015 CATRACHITO ZHANG DO Ot M86.67 1 OTHER CHRONIC OSTEOMYELITIS, RIGHT ANKLE 10/19/2015 YVAN ZHANG DOI Ot N17.9 ACUTE KIDNEY FAILURE, UNSPECIFIED 10/19/2015 CATRACHITO ZHANG DO Ot R05 COUGH 10/19/2015 YVAN ZHANG DOI Ot R65.21 SEVERE SEPSIS WITH SEPTIC SHOCK 10/19/2015 CATRACHITO ZHANG DO Ot T84.53 XA INFECT/INFLM REACTION DUE TO INTERNAL R 10/19/2015 CATRACHITO ZHANG DO Ot T84.54 XA INFECT/INFLM REACTION DUE TO INTERNAL LE 10/19/2015 CATRACHITO ZHANG DO Ot 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 10/19/2015 CATRACHITO ZHANG DO Ot Z87.89 1 PERSONAL HISTORY OF NICOTINE DEPENDENCE 10/19/2015 CATRACHITO ZHANG DO Ot Z96.65 2 PRESENCE OF LEFT ARTIFICIAL KNEE JOINT 10/21/2015 CATRACHITO ZHANG DO Ot A40.1 SEPSIS DUE TO STREPTOCOCCUS, GROUP B 10/21/2015 CATRACHITO ZHANG DO Ot A41.02 SEPSIS DUE TO METHICILLIN RESISTANT STAP 10/21/2015 CATRACHITO ZHANG DO Ot B95.1 STREPTOCOCCUS, GROUP B, CAUSING DISEASES 10/21/2015 CATRACHITO ZHANG DO Ot D62 ACUTE POSTHEMORRHAGIC ANEMIA 10/21/2015 CATRACHITO ZHANG DO Ot D63.8 ANEMIA IN OTHER CHRONIC DISEASES CLASSIF 10/21/2015 CTARACHITO ZHANG DO Ot E11.65 TYPE 2 DIABETES MELLITUS WITH HYPERGLYCE 10/21/2015 CATRACHITO ZHANG DO Ot E83.42 HYPOMAGNESEMIA 10/21/2015 CATRACHITO ZHANG DO Ot E87.1 HYPO-OSMOLALITY AND HYPONATREMIA 10/21/2015 CATRACHITO ZHANG DO Ot E87.2 ACIDOSIS 10/21/2015 CATRACHITO ZHANG DO Ot E87.6 HYPOKALEMIA 10/21/2015 CATRACHITO ZHANG DO Ot F32.9 MAJOR DEPRESSIVE DISORDER, SINGLE EPISOD 10/21/2015 CATRACHITO ZHANG DO Ot G47.33 OBSTRUCTIVE SLEEP APNEA (ADULT) (PEDIATR 10/21/2015 CATRACHITO ZHANG DO Ot G93.41 METABOLIC ENCEPHALOPATHY 10/21/2015 CATRACHITO ZHANG DO Ot I08.1 RHEUMATIC DISORDERS OF BOTH MITRAL AND T 10/21/2015 CATRACHITO ZHANG DO Ot I10 ESSENTIAL (PRIMARY) HYPERTENSION 10/21/2015 CATRACHITO ZHANG DO Ot J44.9 CHRONIC OBSTRUCTIVE PULMONARY DISEASE, U 10/21/2015 CATRACHITO ZHANG DO Ot K21.9 GASTRO-ESOPHAGEAL REFLUX DISEASE WITHOUT 10/21/2015 CATRACHITO ZHANG DO Ot M00.26 1 OTHER STREPTOCOCCAL ARTHRITIS, RIGHT KNE 10/21/2015 CATRACHITO ZHANG DO Ot M00.26 2 OTHER STREPTOCOCCAL ARTHRITIS, LEFT KNEE 10/21/2015 CATRACHITO ZHANG DO Ot M06.9 RHEUMATOID ARTHRITIS, UNSPECIFIED 10/21/2015 CATRACHITO ZHANG DO Ot M86.67 1 OTHER CHRONIC OSTEOMYELITIS, RIGHT ANKLE 10/21/2015 CATRACHITO ZHANG DO Ot N17.9 ACUTE KIDNEY FAILURE, UNSPECIFIED 10/21/2015 CATRACHITO ZHANG DO Ot R05 COUGH 10/21/2015 CATRACHITO ZHANG DO Ot R65.21 SEVERE SEPSIS WITH SEPTIC SHOCK 10/21/2015 ZHANGYVAN ALVARADO DOI Ot T84.53 XA INFECT/INFLM REACTION DUE TO INTERNAL R 10/21/2015 CATRACHITO ZHANG DO Ot T84.54 XA INFECT/INFLM REACTION DUE TO INTERNAL LE 10/21/2015 YVAN ZHANG DOI Ot Z79.4 SHELTER (CURRENT) USE OF INSULIN 10/21/2015 CATRACHITO ZHANG DO Ot Z87.89 1 PERSONAL HISTORY OF NICOTINE DEPENDENCE 10/21/2015 CATRACHITO ZHANG DO Ot Z96.65 2 PRESENCE OF LEFT ARTIFICIAL KNEE JOINT 10/26/2015 MARIE GARCIA KEN E Ot B36.9 SUPERFICIAL MYCOSIS, UNSPECIFIED 10/26/2015 MARIE GARCIA KEN E Ot D64.9 ANEMIA, UNSPECIFIED 10/26/2015 MARIE GARCIA KEN E Ot E11.9 TYPE 2 DIABETES MELLITUS WITHOUT COMPLIC 10/26/2015 MARIE GARCIA KEN E Ot E87.1 HYPO-OSMOLALITY AND HYPONATREMIA 10/26/2015 MARIE GARCIA KEN E Ot E87.6 HYPOKALEMIA 10/26/2015 MARIE GARCIA KEN E Ot F17.2 10 NICOTINE DEPENDENCE, CIGARETTES, UNCOMPL 10/26/2015 MARIE GARCIA KEN E Ot F32.9 MAJOR DEPRESSIVE DISORDER, SINGLE EPISOD 10/26/2015 MARIE GARCIA KEN E Ot F41.9 ANXIETY DISORDER, UNSPECIFIED 10/26/2015 MARIE GARCIA KEN E Ot G62.9 POLYNEUROPATHY, UNSPECIFIED 10/26/2015 MARIE GARCIA KEN E Ot I10 ESSENTIAL (PRIMARY) HYPERTENSION 10/26/2015 MARIE GARCIA KEN E Ot K21.9 GASTRO-ESOPHAGEAL REFLUX DISEASE WITHOUT 10/26/2015 MARIE GARCIA KEN E Ot K59.0 0 CONSTIPATION, UNSPECIFIED 10/26/2015 MARIE GARCIA KEN E Ot M06.9 RHEUMATOID ARTHRITIS, UNSPECIFIED 10/26/2015 MARIE GARCIA KEN E Ot R35.0 FREQUENCY OF MICTURITION 10/26/2015 MARIE GARCIA KEN E Ot R50.8 2 POSTPROCEDURAL FEVER 10/26/2015 MARIE GARCIA KEN E Ot Z47.1 AFTERCARE FOLLOWING JOINT REPLACEMENT LANDRY 10/26/2015 MARIE GARCIA KEN E Ot 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 10/26/2015 KEN SALAZAR MD E Ot Z89.4 21 ACQUIRED ABSENCE OF OTHER RIGHT TOE(S) 10/26/2015 KEN SALAZAR MD E Ot Z96.6 53 PRESENCE OF ARTIFICIAL KNEE JOINT, BILAT 11/01/2015 KEN SALAZAR MD E Ot B36.9 SUPERFICIAL MYCOSIS, UNSPECIFIED 11/01/2015 KEN SALAZAR MD E Ot D64.9 ANEMIA, UNSPECIFIED 11/01/2015 ANNIE SALAZAR MDIC E Ot E11.9 TYPE 2 DIABETES MELLITUS WITHOUT COMPLIC 11/01/2015 ANNIE SALAZAR MDIC E Ot E87.1 HYPO-OSMOLALITY AND HYPONATREMIA 11/01/2015 KEN SALAZAR MD E Ot E87.6 HYPOKALEMIA 11/01/2015 ANNIE SALAZAR MDIC E Ot F17.2 10 NICOTINE DEPENDENCE, CIGARETTES, UNCOMPL 11/01/2015 KEN SALAZAR MD E Ot F32.9 MAJOR DEPRESSIVE DISORDER, SINGLE EPISOD 11/01/2015 KEN SALAZAR MD E Ot F41.9 ANXIETY DISORDER, UNSPECIFIED 11/01/2015 ANNIE SALAZAR MDIC E Ot G62.9 POLYNEUROPATHY, UNSPECIFIED 11/01/2015 ANNIE SALAZAR MDIC E Ot I10 ESSENTIAL (PRIMARY) HYPERTENSION 11/01/2015 KEN SALAZAR MD E Ot K21.9 GASTRO-ESOPHAGEAL REFLUX DISEASE WITHOUT 11/01/2015 ANNIE SALAZAR MDIC E Ot K59.0 0 CONSTIPATION, UNSPECIFIED 11/01/2015 KEN SALAZAR MD E Ot M06.9 RHEUMATOID ARTHRITIS, UNSPECIFIED 11/01/2015 KEN SALAZAR MD E Ot R35.0 FREQUENCY OF MICTURITION 11/01/2015 KEN SALAZAR MD E Ot R50.8 2 POSTPROCEDURAL FEVER 11/01/2015 KEN SALAZAR MD E Ot Z47.1 AFTERCARE FOLLOWING JOINT REPLACEMENT LANDRY 11/01/2015 KEN SALAZAR MD E Ot Z79.4 SHELTER (CURRENT) USE OF INSULIN 11/01/2015 KEN SALAZAR MD Ot Z89.4 21 ACQUIRED ABSENCE OF OTHER RIGHT TOE(S) 11/01/2015 KEN SALAZAR MD E Ot Z96.6 53 PRESENCE OF ARTIFICIAL KNEE JOINT, BILAT 11/03/2015 KEN SALAZAR MD Ot B36.9 SUPERFICIAL MYCOSIS, UNSPECIFIED 11/03/2015 KEN SALAZAR MD E Ot D64.9 ANEMIA, UNSPECIFIED 11/03/2015 KEN SALAZAR MD E Ot E11.9 TYPE 2 DIABETES MELLITUS WITHOUT COMPLIC 11/03/2015 KEN SALAZAR MD E Ot E87.1 HYPO-OSMOLALITY AND HYPONATREMIA 11/03/2015 KEN SALAZAR MD E Ot E87.6 HYPOKALEMIA 11/03/2015 KEN SALAZAR MD E Ot F17.2 10 NICOTINE DEPENDENCE, CIGARETTES, UNCOMPL 11/03/2015 KEN SALAZAR MD E Ot F32.9 MAJOR DEPRESSIVE DISORDER, SINGLE EPISOD 11/03/2015 KEN SALAZAR MD E Ot F41.9 ANXIETY DISORDER, UNSPECIFIED 11/03/2015 KEN SALAZAR MD E Ot G62.9 POLYNEUROPATHY, UNSPECIFIED 11/03/2015 KEN SALAZAR MD E Ot I10 ESSENTIAL (PRIMARY) HYPERTENSION 11/03/2015 KEN SALAZAR MD E Ot K21.9 GASTRO-ESOPHAGEAL REFLUX DISEASE WITHOUT 11/03/2015 ANNIE SALAZAR MDIC E Ot K59.0 0 CONSTIPATION, UNSPECIFIED 11/03/2015 ANNIE SALAZAR MDIC E Ot M06.9 RHEUMATOID ARTHRITIS, UNSPECIFIED 11/03/2015 ANNIE SALAZAR MDIC E Ot R35.0 FREQUENCY OF MICTURITION 11/03/2015 KEN SALAZAR MD E Ot R50.8 2 POSTPROCEDURAL FEVER 11/03/2015 ANNIE SALAZAR MDIC E Ot Z47.1 AFTERCARE FOLLOWING JOINT REPLACEMENT LANDRY 11/03/2015 ANNIE SALAZAR MDIC E Ot 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 11/03/2015 ANNIE SALAZAR MDIC E Ot Z89.4 21 ACQUIRED ABSENCE OF OTHER RIGHT TOE(S) 11/03/2015 ANNIE SALAZAR MDIC E Ot Z96.6 53 PRESENCE OF ARTIFICIAL KNEE JOINT, BILAT 12/05/2015 JOLIE DO JUAN K Ot D64.9 ANEMIA, UNSPECIFIED 12/05/2015 JOLIE DO JUAN K Ot E11.9 TYPE 2 DIABETES MELLITUS WITHOUT COMPLIC 12/05/2015 JOLIE RAJAN JUAN K Ot I11.0 HYPERTENSIVE HEART DISEASE WITH HEART FA 12/05/2015 JOLIE RAJAN JUAN K Ot M19.012 PRIMARY OSTEOARTHRITIS, LEFT SHOULDER 12/05/2015 JOLIE RAJAN JUAN K Ot R42 DIZZINESS AND GIDDINESS 12/05/2015 JUAN DAVE DO Ot S00.93X A CONTUSION OF UNSPECIFIED PART OF HEAD, I 12/05/2015 JUAN DAVE DO Ot S40.012 A CONTUSION OF LEFT SHOULDER, INITIAL ENCO 12/05/2015 JUAN DAVE DO Ot S80.01X A CONTUSION OF RIGHT KNEE, INITIAL ENCOUNT 12/05/2015 JOLIE JUAN RAJAN Ot S80.02X A CONTUSION OF LEFT KNEE, INITIAL ENCOUNTE 12/05/2015 JOLIE JUAN RAJAN Ot S89.91X A UNSPECIFIED INJURY OF RIGHT LOWER LEG, I 12/05/2015 JUAN DAVE DO Ot W01.0XX A FALL SAME LEV FROM SLIP/TRIP W/O STRIKE 12/05/2015 JUAN DAVE DO Ot Y92.012 BATHROOM OF SINGLE-FAMILY (PRIVATE) HOUS 12/05/2015 JUAN DAVE DO Ot Y99.8 OTHER EXTERNAL CAUSE STATUS 12/05/2015 JUAN DAVE DO Ot Z79.82 SHELTER (CURRENT) USE OF ASPIRIN 12/05/2015 JOLIE JUAN RAJAN Ot Z79.899 OTHER REPAIR DEPARTMENT SUPERVISOR (CURRENT) DRUG THERAPY 12/05/2015 JUAN ADVE DO Ot Z96.651 PRESENCE OF RIGHT ARTIFICIAL KNEE JOINT 12/05/2015 JUAN DAVE DO Ot Z96.652 PRESENCE OF LEFT ARTIFICIAL KNEE JOINT 12/07/2015 JUAN DAVE DO Ot D64.9 ANEMIA, UNSPECIFIED 12/07/2015 JUAN DAVE DO Ot E11.9 TYPE 2 DIABETES MELLITUS WITHOUT COMPLIC 12/07/2015 JUAN DAVE DO Ot I11.0 HYPERTENSIVE HEART DISEASE WITH HEART FA 12/07/2015 JUAN DAVE DO Ot M19.012 PRIMARY OSTEOARTHRITIS, LEFT SHOULDER 12/07/2015 JUAN DAVE DO Ot R42 DIZZINESS AND GIDDINESS 12/07/2015 JUAN DAVE DO Ot S00.93X A CONTUSION OF UNSPECIFIED PART OF HEAD, I 12/07/2015 JUAN DAVE DO Ot S40.012 A CONTUSION OF LEFT SHOULDER, INITIAL ENCO 12/07/2015 JUAN DAVE DO Ot S80.01X A CONTUSION OF RIGHT KNEE, INITIAL ENCOUNT 12/07/2015 JUAN DAVE DO Ot S80.02X A CONTUSION OF LEFT KNEE, INITIAL ENCOUNTE 12/07/2015 JUAN DAVE DO Ot S89.91X A UNSPECIFIED INJURY OF RIGHT LOWER LEG, I 12/07/2015 JOLIE RAJAN JUAN Antonia Ot W01.0XX A FALL SAME LEV FROM SLIP/TRIP W/O STRIKE 12/07/2015 JOLIE DODONELLA Antonia Ot Y92.012 BATHROOM OF SINGLE-FAMILY (PRIVATE) HOUS 12/07/2015 JOLIE RAJAN JUAN Antonia Ot Y99.8 OTHER EXTERNAL CAUSE STATUS 12/07/2015 JOLIE RAJANJUAN Ot Z79.82 REPAIR DEPARTMENT SUPERVISOR (CURRENT) USE OF ASPIRIN 12/07/2015 JOLIE RAJAN JUAN K Ot Z79.899 OTHER SHELTER (CURRENT) DRUG THERAPY 12/07/2015 JOLIE RAJAN JUAN K Ot Z96.651 PRESENCE OF RIGHT ARTIFICIAL KNEE JOINT 12/07/2015 JOLIE JUAN Ot Z96.652 PRESENCE OF LEFT ARTIFICIAL KNEE JOINT 04/27/2016 MARY BETH LOYOLA V43.65 KNEE JOINT REPLACED BY OTHER MEANS 04/27/2016 MARY BETH LOYOLA V54.89 OTHER ORTHOPEDIC AFTERCARE 04/27/2016 MARY BETH LOYOLA Z47.89 ENCOUNTER FOR OTHER ORTHOPEDIC AFTERCARE 04/27/2016 MARY BETH LOYOLA Z96.651 PRESENCE OF RIGHT ARTIFICIAL KNEE JOINT 09/08/2016 CHUCKY CAREY Ot M19.071 PRIMARY OSTEOARTHRITIS, RIGHT ANKLE AND 09/08/2016 CHUCKY CAREY Ot M19.072 PRIMARY OSTEOARTHRITIS, LEFT ANKLE AND F 09/08/2016 CHUCKY CAREY Ot M25.561 PAIN IN RIGHT KNEE 09/08/2016 CHUCKY CAREY Ot M25.562 PAIN IN LEFT KNEE 09/08/2016 CHUCKY CAREY Ot X58.XXXA EXPOSURE TO OTHER SPECIFIED FACTORS, INI 09/08/2016 CHUCKY CAREY Ot M19.071 PRIMARY OSTEOARTHRITIS, RIGHT ANKLE AND 09/08/2016 CHUCKY CAREY Ot M19.072 PRIMARY OSTEOARTHRITIS, LEFT ANKLE AND F 09/08/2016 CHUCKY CAREYP Ot M25.561 PAIN IN RIGHT KNEE 09/08/2016 CHUCKY CAREY Ot M25.562 PAIN IN LEFT KNEE 09/08/2016 CHUCKY CAREY Ot X58.XXXA EXPOSURE TO OTHER SPECIFIED FACTORS, INI 09/26/2016 W 250.00 ARIANA BETES MELLITUS WITHOUT MENTION OF COMPLICATION, TYPE II OR UNSPECIFIED TYPE, NOT STATED UNCONTROLLED 09/26/2016 W 272.4 OTHE R AND UNSPECIFIED HYPERLIPIDEMIA 09/26/2016 W 401.9 UNSP ECIFIED ESSENTIAL HYPERTENSION 09/26/2016 W 714.0 RHEU MATOID ARTHRITIS 09/26/2016 W E11.9 TYPE 2 DIABETES MELLITUS WITHOUT COMPLICATIONS 09/26/2016 W E78.0 PURE HYPERCHOLESTEROLEMIA 09/26/2016 W I10 ESSENT IAL (PRIMARY) HYPERTENSION 09/26/2016 W M08.00 UNS PECIFIED JUVENILE RHEUMATOID ARTHRITIS OF UNSPECIFIED SITE 09/27/2016 AURELIO CHUCKY ALEGRIAP Ot M19.071 PRIMARY OSTEOARTHRITIS, RIGHT ANKLE AND 09/27/2016 AURELIOCHUCKYP Ot M19.072 PRIMARY OSTEOARTHRITIS, LEFT ANKLE AND F 09/27/2016 AURELIOCHUCKYP Ot M25.561 PAIN IN RIGHT KNEE 09/27/2016 CHUCKY CAREY Ot M25.562 PAIN IN LEFT KNEE 09/27/2016 AURELIOCHUCKY Ot X58.XXXA EXPOSURE TO OTHER SPECIFIED FACTORS, INI 10/01/2016 ZENAIDA RICHARDSON MD Ot D64 .9 ANEMIA, UNSPECIFIED 10/01/2016 ZENAIDA RICHARDSON MD Ot E11 .9 TYPE 2 DIABETES MELLITUS WITHOUT COMPLIC 10/01/2016 ZENAIDA RICHARDSON MD Ot E78.00 PURE HYPERCHOLESTEROLEMIA, UNSPECIFIED 10/01/2016 ZENAIDA RICHARDSON MD Ot I10 ESSENTIAL (PRIMARY) HYPERTENSION 10/19/2016 ZENAIDA RICHARDSON MD Ot D64 .9 ANEMIA, UNSPECIFIED 10/19/2016 ZENAIDA RICHARDSON MD Ot E11 .9 TYPE 2 DIABETES MELLITUS WITHOUT COMPLIC 10/19/2016 ZENAIDA RICHARDSON MD Ot E78.00 PURE HYPERCHOLESTEROLEMIA, UNSPECIFIED 10/19/2016 ZENAIDA RICHARDSON MD Ot I10 ESSENTIAL (PRIMARY) HYPERTENSION 12/26/2016 W 250.00 ARIANA BETES MELLITUS WITHOUT MENTION OF COMPLICATION, TYPE II OR UNSPECIFIED TYPE, NOT STATED UNCONTROLLED 12/26/2016 W 272.4 OTHE R AND UNSPECIFIED HYPERLIPIDEMIA 12/26/2016 W 401.9 UNSP ECIFIED ESSENTIAL HYPERTENSION 12/26/2016 W 714.0 RHEU MATOID ARTHRITIS 12/26/2016 W E11.9 TYPE 2 DIABETES MELLITUS WITHOUT COMPLICATIONS 12/26/2016 W E78.4 OTHE R HYPERLIPIDEMIA 12/26/2016 W I10 ESSENT IAL (PRIMARY) HYPERTENSION 12/26/2016 W M06.842 OT HER SPECIFIED RHEUMATOID ARTHRITIS, LEFT HAND 02/26/2019 AURELIO, CHUCKY H ARMORING MACHINE OPERATOR Ot M19.071 PRIMARY OSTEOARTHRITIS, RIGHT ANKLE AND 02/26/2019 AURELIO, CHUCKY H ARMORING MACHINE OPERATOR Ot M19.072 PRIMARY OSTEOARTHRITIS, LEFT ANKLE AND F 02/26/2019 AURELIO, CHUCKY H ARMORING MACHINE OPERATOR Ot M25.561 PAIN IN RIGHT KNEE 02/26/2019 AURELIOCORBYCHUCKY H ARMORING MACHINE OPERATOR Ot M25.562 PAIN IN LEFT KNEE 02/26/2019 AURELIOCORBYCHUCKY H ARMORING MACHINE OPERATOR Ot X58.XXXA EXPOSURE TO OTHER SPECIFIED FACTORS, INI 02/26/2019 ZENAIDA RICHARDSON MD Ot D64 .9 ANEMIA, UNSPECIFIED 02/26/2019 ZENAIDA RICHARDSON MD Ot E11 .9 TYPE 2 DIABETES MELLITUS WITHOUT COMPLIC 02/26/2019 ZENAIDA RICHARDSON MD Ot E78.00 PURE HYPERCHOLESTEROLEMIA, UNSPECIFIED 02/26/2019 ZENAIDA RICHARDSON MD Ot I10 ESSENTIAL (PRIMARY) HYPERTENSION 03/02/2019 AURELIOCHUCKY H ARMORING MACHINE OPERATOR Ot M19.071 PRIMARY OSTEOARTHRITIS, RIGHT ANKLE AND 03/02/2019 AURELIO, CHUCKY H ARMORING MACHINE OPERATOR Ot M19.072 PRIMARY OSTEOARTHRITIS, LEFT ANKLE AND F 03/02/2019 AURELIO, CHUCKY H ARMORING MACHINE OPERATOR Ot M25.561 PAIN IN RIGHT KNEE 03/02/2019 AURELIOCORBYCHUCKY H ARMORING MACHINE OPERATOR Ot M25.562 PAIN IN LEFT KNEE 03/02/2019 AURELIOCORBYCHUCKY H ARMORING MACHINE OPERATOR Ot X58.XXXA EXPOSURE TO OTHER SPECIFIED FACTORS, INI 03/02/2019 ZENAIDA RICHARDSON MD Ot D64 .9 ANEMIA, UNSPECIFIED 03/02/2019 ZENAIDA RICHARDSON MD Ot E11 .9 TYPE 2 DIABETES MELLITUS WITHOUT COMPLIC 03/02/2019 ZENAIDA RICHARDSON MD Ot E78.00 PURE HYPERCHOLESTEROLEMIA, UNSPECIFIED 03/02/2019 ZENAIDA RICHARDSON MD Ot I10 ESSENTIAL (PRIMARY) HYPERTENSION 03/04/2019 NICHOLAS HEATON FRINGE MAKER Ot I51.7 CARDIOMEGALY 03/24/2019 NICHOLAS HEATON FRINGE MAKER Ot I51.7 CARDIOMEGALY 04/15/2019 CATALINA ZIMMERMAN MD Ot E11. 9 TYPE 2 DIABETES MELLITUS WITHOUT COMPLIC 04/15/2019 CATALINA ZIMMERMAN MD Ot E78. 2 MIXED HYPERLIPIDEMIA 04/15/2019 CATALINA ZIMMERMAN MD Ot I11. 0 HYPERTENSIVE HEART DISEASE WITH HEART FA 04/15/2019 CATALINA ZIMMERMAN MD Ot I21. 9 ACUTE MYOCARDIAL INFARCTION, UNSPECIFIED 04/15/2019 CATALINA ZIMMERMAN MD Ot I25. 10 ATHSCL HEART DISEASE OF [place] CORONARY 04/15/2019 CATALINA ZIMMERMAN MD Ot I50. 9 HEART FAILURE, UNSPECIFIED 04/30/2019 CATALINA ZIMMERMAN MD Ot E11. 9 TYPE 2 DIABETES MELLITUS WITHOUT COMPLIC 04/30/2019 CATALINA ZIMMERMAN MD Ot I11. 0 HYPERTENSIVE HEART DISEASE WITH HEART FA 04/30/2019 CATALINA ZIMMERMAN MD Ot I21. 9 ACUTE MYOCARDIAL INFARCTION, UNSPECIFIED 04/30/2019 CATALINA ZIMMERMAN MD Ot I50. 43 ACUTE ON CHRONIC COMBINED SYSTOLIC AND D 05/06/2019 CATALINA ZIMMERMAN MD Ot E11. 9 TYPE 2 DIABETES MELLITUS WITHOUT COMPLIC 05/06/2019 CATALINA ZIMMERMAN MD Ot E78. 2 MIXED HYPERLIPIDEMIA 05/06/2019 CATALINA ZIMMERMAN MD Ot I11. 0 HYPERTENSIVE HEART DISEASE WITH HEART FA 05/06/2019 CATALINA ZIMMERMAN MD Ot I25. 10 ATHSCL HEART DISEASE OF [place] CORONARY 05/06/2019 CATALINA ZIMMERMAN MD Ot I25. 2 OLD MYOCARDIAL INFARCTION 05/06/2019 CATALINA ZIMMERMAN MD Ot I50. 22 CHRONIC SYSTOLIC (CONGESTIVE) HEART FAIL 05/06/2019 CATALINA ZIMMERMAN MD Ot I65. 23 OCCLUSION AND STENOSIS OF BILATERAL [place] 05/06/2019 CATALINA ZIMMERMAN MD Ot Z79. 82 REPAIR DEPARTMENT SUPERVISOR (CURRENT) USE OF ASPIRIN 05/06/2019 CATALINA ZIMMERMAN MD Ot Z79. 84 REPAIR DEPARTMENT SUPERVISOR (CURRENT) USE OF ORAL HYPOGLYC 05/06/2019 CATALINA ZIMMERMAN MD Ot Z79.899 OTHER REPAIR DEPARTMENT SUPERVISOR (CURRENT) DRUG THERAPY 05/06/2019 CATALINA ZIMMERMAN MD Ot Z88. 8 ALLERGY STATUS TO OTH DRUG/MEDS/BIOL SUB 05/08/2019 CATALINA ZIMMERMAN MD Ot E11. 9 TYPE 2 DIABETES MELLITUS WITHOUT COMPLIC 05/08/2019 CATALINA ZIMMERMAN MD Ot E78. 2 MIXED HYPERLIPIDEMIA 05/08/2019 CATALINA ZIMMERMAN MD Ot I11. 0 HYPERTENSIVE HEART DISEASE WITH HEART FA 05/08/2019 CATALINA ZIMMERMAN MD Ot I25. 10 ATHSCL HEART DISEASE OF [place] CORONARY 05/08/2019 CATALINA ZIMMERMAN MD Ot I25. 2 OLD MYOCARDIAL INFARCTION 05/08/2019 CATALINA ZIMMERMAN MD Ot I50. 22 CHRONIC SYSTOLIC (CONGESTIVE) HEART FAIL 05/08/2019 CATALINA ZIMMERMAN MD Ot I65. 23 OCCLUSION AND STENOSIS OF [place]ILATERAL [place] 05/08/2019 CATALINA ZIMMERMAN MD Ot Z79. 82 REPAIR DEPARTMENT SUPERVISOR (CURRENT) USE OF ASPIRIN 05/08/2019 CATALINA ZIMMERMAN MD Ot Z79. 84 SHELTER (CURRENT) USE OF ORAL HYPOGLYC 05/08/2019 CATALINA ZIMMERMAN MD Ot Z79.899 OTHER SHELTER (CURRENT) DRUG THERAPY 05/08/2019 CATALINA ZIMMERMAN MD Ot Z88. 8 ALLERGY STATUS TO OTH DRUG/MEDS/BIOL SUB 05/12/2019 CATALINA ZIMMERMAN MD Ot E11. 9 TYPE 2 DIABETES MELLITUS WITHOUT COMPLIC 05/12/2019 CATALINA ZIMMERMAN MD Ot E78. 2 MIXED HYPERLIPIDEMIA 05/12/2019 CATALINA ZIMMERMAN MD Ot I11. 0 HYPERTENSIVE HEART DISEASE WITH HEART FA 05/12/2019 CATALINA ZIMMERMAN MD Ot I21. 9 ACUTE MYOCARDIAL INFARCTION, UNSPECIFIED 05/12/2019 CATALINA ZIMMERMAN MD Ot I25. 10 ATHSCL HEART DISEASE OF [place] CORONARY 05/12/2019 CATALINA ZIMMERMAN MD Ot I50. 9 HEART FAILURE, UNSPECIFIED 05/25/2019 CATALINA ZIMMERMAN MD Ot E11. 9 TYPE 2 DIABETES MELLITUS WITHOUT COMPLIC 05/25/2019 CATALINA ZIMMERMAN MD Ot E78. 2 MIXED HYPERLIPIDEMIA 05/25/2019 CATALINA ZIMMERMAN MD Ot I08. 1 RHEUMATIC DISORDERS OF BOTH MITRAL AND T 05/25/2019 CATALINA ZIMMERMAN MD Ot I11. 0 HYPERTENSIVE HEART DISEASE WITH HEART FA 05/25/2019 CATALINA ZIMMERMAN MD Ot I25. 10 ATHSCL HEART DISEASE OF [place] CORONARY 05/25/2019 CATALINA ZIMMERMAN MD Ot I50. 9 HEART FAILURE, UNSPECIFIED 06/10/2019 CATALINA ZIMMERMAN MD Ot E11. 9 TYPE 2 DIABETES MELLITUS WITHOUT COMPLIC 06/10/2019 CATALINA ZIMMERMAN MD Ot E78. 2 MIXED HYPERLIPIDEMIA 06/10/2019 CATALINA ZIMMERMAN MD Ot I08. 1 RHEUMATIC DISORDERS OF BOTH MITR[place] AND T 06/10/2019 CATALINA ZIMMERMAN MD Ot I11. 0 HYPERTENSIVE HEART DISEASE WITH HEART FA 06/10/2019 CATALINA ZIMMERMAN MD Ot I25. 10 ATHSCL HEART DISEASE OF [place] CORONARY 06/10/2019 CATALINA ZIMMERMAN MD Ot I50. 9 HEART FAILURE, UNSPECIFIED 06/17/2019 AURELIO, CHUCKY H ARMORING MACHINE OPERATOR Ot M19.071 PRIMARY OSTEOARTHRITIS, RIGHT ANKLE AND 06/17/2019 AURELIO, CHUCKY H ARMORING MACHINE OPERATOR Ot M19.072 PRIMARY OSTEOARTHRITIS, LEFT ANKLE AND F 06/17/2019 AURELIO, CHUCKY H ARMORING MACHINE OPERATOR Ot M25.561 PAIN IN RIGHT KNEE 06/17/2019 AURELIO, CHUCKY H ARMORING MACHINE OPERATOR Ot M25.562 PAIN IN LEFT KNEE 06/17/2019 AURELIO, CHUCKY H ARMORING MACHINE OPERATOR Ot X58.XXXA EXPOSURE TO OTHER SPECIFIED FACTORS, INI 06/17/2019 ZENAIDA RICHARDSON MD Ot D64 .9 ANEMIA, UNSPECIFIED 06/17/2019 ZENAIDA RICHARDSON MD Ot E11 .9 TYPE 2 DIABETES MELLITUS WITHOUT COMPLIC 06/17/2019 ZENAIDA RICHARDSON MD Ot E78.00 PURE HYPERCHOLESTEROLEMIA, UNSPECIFIED 06/17/2019 ZENAIDA RICHARDSON MD Ot I10 ESSENTIAL (PRIMARY) HYPERTENSION 06/17/2019 NICHOLAS HEATON APRN Ot I51.7 CARDIOMEGALY 06/17/2019 CATALINA ZIMMERMAN MD Ot E11. 9 TYPE 2 DIABETES MELLITUS WITHOUT COMPLIC 06/17/2019 CATALINA ZIMMERMAN MD Ot E78. 2 MIXED HYPERLIPIDEMIA 06/17/2019 CATALINA ZIMMERMAN MD Ot I11. 0 HYPERTENSIVE HEART DISEASE WITH HEART FA 06/17/2019 CATALINA ZIMMERMAN MD Ot I21. 9 ACUTE MYOCARDIAL INFARCTION, UNSPECIFIED 06/17/2019 CATALINA ZIMMERMAN MD Ot I25. 10 ATHSCL HEART DISEASE OF [place] CORONARY 06/17/2019 CATALINA ZIMMERMAN MD Ot I50. 9 HEART FAILURE, UNSPECIFIED 06/17/2019 CATALINA ZIMMERMAN MD Ot E11. 9 TYPE 2 DIABETES MELLITUS WITHOUT COMPLIC 06/17/2019 CATALINA ZIMMERMAN MD Ot I11. 0 HYPERTENSIVE HEART DISEASE WITH HEART FA 06/17/2019 CATALINA ZIMMERMAN MD Ot I21. 9 ACUTE MYOCARDIAL INFARCTION, UNSPECIFIED 06/17/2019 CATALINA ZIMMERMAN MD Ot I50. 43 ACUTE ON CHRONIC COMBINED SYSTOLIC AND D 06/17/2019 CATALINA ZIMMERMAN MD Ot E11. 9 TYPE 2 DIABETES MELLITUS WITHOUT COMPLIC 06/17/2019 CATALINA ZIMMERMAN MD Ot E78. 2 MIXED HYPERLIPIDEMIA 06/17/2019 CATALINA ZIMMERMAN MD Ot I08. 1 RHEUMATIC DISORDERS OF BOTH MITRAL AND T 06/17/2019 CATALINA ZIMMERMAN MD Ot I11. 0 HYPERTENSIVE HEART DISEASE WITH HEART FA 06/17/2019 CATALINA ZIMMERMAN MD Ot I25. 10 ATHSCL HEART DISEASE OF [place] CORONARY 06/17/2019 CATALINA ZIMMERMAN MD Ot I50. 9 HEART FAILURE, UNSPECIFIED 06/27/2019 EVER CALDERON Ot E11.9 TYPE 2 DIABETES MELLITUS WITHOUT COMPLIC 06/27/2019 EVER CALDERON Ot E78.2 MIXED HYPERLIPIDEMIA 06/27/2019 EVER CALDERON Ot I07.1 RHEUMATIC TRICUSPID INSUFFICIENCY 06/27/2019 EVER CALDERON Ot I11.0 HYPERTENSIVE HEART DISEASE WITH HEART FA 06/27/2019 EVER CALDERON Ot I25.10 ATHSCL HEART DISEASE OF [place] CORONARY 06/27/2019 EVER CALDERON Ot I50.22 CHRONIC SYSTOLIC (CONGESTIVE) HEART FAIL 06/29/2019 [facility] PA, EVER K Ot E11.9 TYPE 2 DIABETES MELLITUS WITHOUT COMPLIC 06/29/2019 [facility] PA, EVER K Ot E78.2 MIXED HYPERLIPIDEMIA 06/29/2019 [facility] PA, EVER K Ot I07.1 RHEUMATIC TRICUSPID INSUFFICIENCY 06/29/2019 [facility] PA, EVER K Ot I11.0 HYPERTENSIVE HEART DISEASE WITH HEART FA 06/29/2019 [facility] PA, EVER K Ot I25.10 ATHSCL HEART DISEASE OF [place] CORONARY 06/29/2019 [facility] PA, EVER K Ot I50.22 CHRONIC SYSTOLIC (CONGESTIVE) HEART FAIL 07/15/2019 [facility] PA, EVER K Ot E11.9 TYPE 2 DIABETES MELLITUS WITHOUT COMPLIC 07/15/2019 [facility] PA, EVER K Ot E78.2 MIXED HYPERLIPIDEMIA 07/15/2019 [facility] PA, EVER K Ot I07.1 RHEUMATIC TRICUSPID INSUFFICIENCY 07/15/2019 [facility] PA, EVER K Ot I11.0 HYPERTENSIVE HEART DISEASE WITH HEART FA 07/15/2019 [facility] PA, EVER K Ot I25.10 ATHSCL HEART DISEASE OF [place] CORONARY 07/15/2019 [facility] PA, EVER K Ot I50.22 CHRONIC SYSTOLIC (CONGESTIVE) HEART FAIL 08/19/2019 AURELIO, CHUCKY Dial ARMORING MACHINE OPERATOR Ot M19.071 PRIMARY OSTEOARTHRITIS, RIGHT ANKLE AND 08/19/2019 AURELIO, CHUCKY Dial ARMORING MACHINE OPERATOR Ot M19.072 PRIMARY OSTEOARTHRITIS, LEFT ANKLE AND F 08/19/2019 AURELIOCHUCKY ARMORING MACHINE OPERATOR Ot M25.561 PAIN IN RIGHT KNEE 08/19/2019 AURELIO, CHUCKY H ARMORING MACHINE OPERATOR Ot M25.562 PAIN IN LEFT KNEE 08/19/2019 AURELIO, CHUCKY Dial ARMORING MACHINE OPERATOR Ot X58.XXXA EXPOSURE TO OTHER SPECIFIED FACTORS, INI 08/19/2019 ZENAIDA RICHARDSON MD Ot D64 .9 ANEMIA, UNSPECIFIED 08/19/2019 ZENAIDA RICHARDSON MD Ot E11 .9 TYPE 2 DIABETES MELLITUS WITHOUT COMPLIC 08/19/2019 ZENAIDA RICHARDSON MD Ot E78.00 PURE HYPERCHOLESTEROLEMIA, UNSPECIFIED 08/19/2019 BROWN MD, ZENAIDA K Ot I10 ESSENTIAL (PRIMARY) HYPERTENSION 08/19/2019 NICHOLAS HEATON FRINGE MAKER Ot I51.7 CARDIOMEGALY 08/19/2019 CATALINA ZIMMERMAN MD Ot E11. 9 TYPE 2 DIABETES MELLITUS WITHOUT COMPLIC 08/19/2019 CATALINA ZIMMERMAN MD Ot E78. 2 MIXED HYPERLIPIDEMIA 08/19/2019 CATALINA ZIMMERMAN MD Ot I11. 0 HYPERTENSIVE HEART DISEASE WITH HEART FA 08/19/2019 CATALINA ZIMMERMAN MD Ot I21. 9 ACUTE MYOCARDIAL INFARCTION, UNSPECIFIED 08/19/2019 CATALINA ZIMMERMAN MD Ot I25. 10 ATHSCL HEART DISEASE OF [place] CORONARY 08/19/2019 CATALINA ZIMMERMAN MD Ot I50. 9 HEART FAILURE, UNSPECIFIED 08/19/2019 CATALINA ZIMMERMAN MD Ot E11. 9 TYPE 2 DIABETES MELLITUS WITHOUT COMPLIC 08/19/2019 CATALINA ZIMMERMAN MD Ot I11. 0 HYPERTENSIVE HEART DISEASE WITH HEART FA 08/19/2019 CATALINA ZIMMERMAN MD Ot I21. 9 ACUTE MYOCARDIAL INFARCTION, UNSPECIFIED 08/19/2019 CATALINA ZIMMERMAN MD Ot I50. 43 ACUTE ON CHRONIC COMBINED SYSTOLIC AND D 08/19/2019 CATALINA ZIMMERMAN MD Ot E11. 9 TYPE 2 DIABETES MELLITUS WITHOUT COMPLIC 08/19/2019 CATALINA ZIMMERMAN MD Ot E78. 2 MIXED HYPERLIPIDEMIA 08/19/2019 CATALINA ZIMMERMAN MD Ot I08. 1 RHEUMATIC DISORDERS OF BOTH MITRAL AND T 08/19/2019 CATALINA ZIMMERMAN MD Ot I11. 0 HYPERTENSIVE HEART DISEASE WITH HEART FA 08/19/2019 CATALINA ZIMMERMAN MD Ot I25. 10 ATHSCL HEART DISEASE OF [place] CORONARY 08/19/2019 CATALINA ZIMMERMAN MD Ot I50. 9 HEART FAILURE, UNSPECIFIED 08/19/2019 EVER CALDERON Ot E11.9 TYPE 2 DIABETES MELLITUS WITHOUT COMPLIC 08/19/2019 EVER CALDERON Ot E78.2 MIXED HYPERLIPIDEMIA 08/19/2019 EVER CALDERON Ot I07.1 RHEUMATIC TRICUSPID INSUFFICIENCY 08/19/2019 EVER CALDERON Ot I11.0 HYPERTENSIVE HEART DISEASE WITH HEART FA 08/19/2019 EVER CALDERON Ot I25.10 ATHSCL HEART DISEASE OF [place] CORONARY 08/19/2019 EVER CALDERON Ot I50.22 CHRONIC SYSTOLIC (CONGESTIVE) HEART FAIL 08/19/2019 CATALINA ZIMMERMAN MD, Ot I34. 0 NONRHEUMATIC MITRAL (VALVE) INSUFFICIENC 08/19/2019 CATALINA ZIMMERMAN MD Ot I50. 22 CHRONIC SYSTOLIC (CONGESTIVE) HEART FAIL 08/21/2019 EVER CALDERON Ot Z01.812 ENCOUNTER FOR PREPROCEDURAL LABORATORY E 08/21/2019 EVER CALDERON Ot Z11.59 ENCOUNTER FOR SCREENING FOR OTHER VIRAL Procedures Code Description Performed By Per formed On [id number] RE MOVAL OF SYNTH SUB FROM L KNEE JT, OPE 10/13/[id number] OF L KNEE JT WITH SYNTH SUB, [facility], [facility] 10/13/2015 [id number] DE TACHMENT AT RIGHT 2ND TOE, LOW, OPEN A 10/13/[id number] [place]VAR[place]O OF RIGHT KNEE JOINT, [place] 10/14/2015 [id number] RE MOVAL OF SYNTH SUB FROM R KNEE JT, OPE 10/15/[id number] OF R KNEE JT WITH SYNTH SUB, [facility], [facility] 10/15/2015 Results Test Result Range Capillary blood glucose measurement by g lucometer (mass/volume) - 10/20/15 18:37 Capillary blood glucose measurement by glucometer (mas s/volume) 213 mg/dL 70-110 Capillary blood glucose measurement by g lucometer (mass/volume) - 10/21/15 00:27 Capillary blood glucose measurement by glucometer (mas s/volume) 214 mg/dL 70-110 Capillary blood glucose measurement by g lucometer (mass/volume) - 10/21/15 05:36 Capillary blood glucose measurement by glucometer (mas s/volume) 135 mg/dL 70-110 Capillary blood glucose measurement by g lucometer (mass/volume) - 10/21/15 15:25 Capillary blood glucose measurement by glucometer (mas s/volume) 209 mg/dL 70-110 Bacterial blood culture - 10/21/15 16:10 Bacterial blood culture NG NRG Complete urinalysis with reflex to cultu re - 10/21/15 16:20 Urine color determination YELLOW NRG Urine clarity determination CLEAR NR G Urine pH measurement by test strip 6 5-9 Specific gravity of urine by test strip 1.010 1.016-1.022 Urine protein assay by test strip, semi-quantitative 1+ NEGATIVE Urine glucose detection by automated test strip 3+ NEGATIVE Erythrocytes detection in urine sediment by light micr oscopy 1+ NEGATIVE Urine ketones detection by automated test strip NE GATIVE NEGATIVE Urine nitrite detection by test strip NEGATIVE NEGATIVE Urine total bilirubin detection by test strip NEGA TIVE NEGATIVE Urine urobilinogen measurement by automated test strip (mass/volume) NORMAL NORMAL Urine leukocyte esterase detection by dipstick NEG ATIVE NEGATIVE Automated urine sediment erythrocyte cou nt by microscopy (number/high power field) [HPF] NRG Automated urine sediment leukocyte count by microscopy (number/high power field) [HPF] NRG Bacteria detection in urine sediment by light microsco py NEGATIVE NRG Squamous epithelial cells detection in u rine sediment by light microscopy RARE NRG Crystals detection in urine sediment by light microsco py NONE NRG Casts detection in urine sediment by light microscopy NONE NRG Mucus detection in urine sediment by light microscopy NEGATIVE NRG Complete urinalysis with reflex to culture NO NRG Bacterial blood culture - 10/21/15 16:20 Bacterial blood culture NG NRG Capillary blood glucose measurement by g lucometer (mass/volume) - 10/21/15 21:04 Capillary blood glucose measurement by glucometer (mas s/volume) 202 mg/dL 70-110 Automated blood complete blood count ( mogram) panel - 10/22/15 06:42 Blood leukocytes automated count (number/volume) 10.2 10*3/uL 4.3-11.0 Blood erythrocytes automated count (number/volume) 3.02 10*6/uL 4.35-5.85 Venous blood hemoglobin measurement (mass/volume) 9.5 g/dL 13.3-17.7 Blood hematocrit (volume fraction) 29 % 40-54 Automated erythrocyte mean corpuscular volume 97 [ foz_us] 80-99 Automated erythrocyte mean corpuscular h emoglobin (mass per erythrocyte) 32 pg 25-34 Automated erythrocyte mean corpuscular h emoglobin concentration measurement (mass/volume) 32 g/dL 32-36 Automated erythrocyte distribution width ratio 14. 9 % 10.0- 14.5 Automated blood platelet count (count/volume) 359 10*3/uL 130-400 Automated blood platelet mean volume measurement 10.8 [foz_us] 7.4-10.4 Erythrocyte sedimentation rate by amanda gren method - 10/22/15 06:42 Erythrocyte sedimentation rate by westergren method 101 mm 0-30 Whole blood basic metabolic panel - 09/24 0 06:42 Serum or plasma sodium measurement (moles/volume) 132 mmol/L 135-145 Serum or plasma potassium measurement (moles/volume) 3.9 mmol/L 3.6-5.0 Serum or plasma chloride measurement (moles/volume) 98 mmol/L 98-107 Carbon dioxide 27 mmol/L 21-32 Serum or plasma anion gap determination (moles/volume) 7 mmol/L 5-14 Serum or plasma urea nitrogen measurement (mass/volume ) 15 mg/dL 7-18 Serum or plasma creatinine measurement (mass/volume) 0.88 mg/dL 0.60-1.30 Serum or plasma urea nitrogen/creatinine mass ratio 17 NRG Serum or plasma creatinine measurement w ith calculation of estimated glomerular filtration rate > NRG Serum or plasma glucose measurement (mass/volume) 92 mg/dL 70-105 Serum or plasma calcium measurement (mass/volume) 7.8 mg/dL 8.5-10.1 Capillary blood glucose measurement by g lucometer (mass/volume) - 10/22/15 09:52 Capillary blood glucose measurement by glucometer (mas s/volume) 124 mg/dL 70-110 Capillary blood glucose measurement by g lucometer (mass/volume) - 10/22/15 14:39 Capillary blood glucose measurement by glucometer (mas s/volume) 132 mg/dL 70-110 Capillary blood glucose measurement by g lucometer (mass/volume) - 10/22/15 19:22 Capillary blood glucose measurement by glucometer (mas s/volume) 165 mg/dL 70-110 Capillary blood glucose measurement by g lucometer (mass/volume) - 10/23/15 06:24 Capillary blood glucose measurement by glucometer (mas s/volume) 140 mg/dL 70-110 Capillary blood glucose measurement by g lucometer (mass/volume) - 10/23/15 11:59 Capillary blood glucose measurement by glucometer (mas s/volume) 171 mg/dL 70-110 Capillary blood glucose measurement by g lucometer (mass/volume) - 10/23/15 16:18 Capillary blood glucose measurement by glucometer (mas s/volume) 130 mg/dL 70-110 Capillary blood glucose measurement by g lucometer (mass/volume) - 10/23/15 20:25 Capillary blood glucose measurement by glucometer (mas s/volume) 170 mg/dL 70-110 Bacterial blood culture - 10/23/15 22:30 Bacterial blood culture NG NRG Bacterial blood culture - 10/23/15 22:30 Bacterial blood culture NG NRG Automated blood complete blood count (he mogram) panel - 10/24/15 04:50 Blood leukocytes automated count (number/volume) 9.1 10*3/uL 4.3-11.0 Blood erythrocytes automated count (number/volume) 3.24 10*6/uL 4.35-5.85 Venous blood hemoglobin measurement (mass/volume) 10.2 g/dL 13.3-17.7 Blood hematocrit (volume fraction) 32 % 40-54 Automated erythrocyte mean corpuscular volume 97 [ foz_us] 80-99 Automated erythrocyte mean corpuscular h emoglobin (mass per erythrocyte) 32 pg 25-34 Automated erythrocyte mean corpuscular h emoglobin concentration measurement (mass/volume) 32 g/dL 32-36 Automated erythrocyte distribution width ratio 14. 9 % 10.0- 14.5 Automated blood platelet count (count/volume) 658 10*3/uL 130-400 Automated blood platelet mean volume measurement 10.5 [foz_us] 7.4-10.4 Whole blood basic metabolic panel - 04/09 04:50 Serum or plasma sodium measurement (moles/volume) 135 mmol/L 135-145 Serum or plasma potassium measurement (moles/volume) 3.6 mmol/L 3.6-5.0 Serum or plasma chloride measurement (moles/volume) 96 mmol/L 98-107 Carbon dioxide 30 mmol/L 21-32 Serum or plasma anion gap determination (moles/volume) 9 mmol/L 5-14 Serum or plasma urea nitrogen measurement (mass/volume ) 12 mg/dL 7-18 Serum or plasma creatinine measurement (mass/volume) 0.94 mg/dL 0.60-1.30 Serum or plasma urea nitrogen/creatinine mass ratio 13 NRG Serum or plasma creatinine measurement w ith calculation of estimated glomerular filtration rate > NRG Serum or plasma glucose measurement (mass/volume) 96 mg/dL 70-105 Serum or plasma calcium measurement (mass/volume) 8.3 mg/dL 8.5-10.1 Erythrocyte sedimentation rate by amanda gren method - 10/24/15 04:50 Erythrocyte sedimentation rate by westergren method 93 mm 0- 30 Serum or plasma rheumatoid factor measur ement (units/volume) - 10/24/15 04:50 Serum or plasma rheumatoid factor measurement (units/v olume) NEGATIVE NEGATIVE Capillary blood glucose measurement by g lucometer (mass/volume) - 10/24/15 05:00 Capillary blood glucose measurement by glucometer (mas s/volume) 91 mg/dL 70-110 Capillary blood glucose measurement by g lucometer (mass/volume) - 10/24/15 10:46 Capillary blood glucose measurement by glucometer (mas s/volume) 136 mg/dL 70-110 Capillary blood glucose measurement by g lucometer (mass/volume) - 10/24/15 14:28 Capillary blood glucose measurement by glucometer (mas s/volume) 106 mg/dL 70-110 Capillary blood glucose measurement by g lucometer (mass/volume) - 10/24/15 18:01 Capillary blood glucose measurement by glucometer (mas s/volume) 129 mg/dL 70-110 ANTI-NUCLEAR AB (RICO) ANALYZER - 6 18:50 Screening antinuclear antibody (RICO) assay by enzyme i mmunoassay <1:80 <1:80 Capillary blood glucose measurement by g lucometer (mass/volume) - 10/24/15 20:31 Capillary blood glucose measurement by glucometer (mas s/volume) 158 mg/dL 70-110 Capillary blood glucose measurement by g lucometer (mass/volume) - 10/25/15 05:35 Capillary blood glucose measurement by glucometer (mas s/volume) 106 mg/dL 70-110 Capillary blood glucose measurement by g lucometer (mass/volume) - 10/25/15 10:57 Capillary blood glucose measurement by glucometer (mas s/volume) 142 mg/dL 70-110 Capillary blood glucose measurement by g lucometer (mass/volume) - 10/25/15 19:40 Capillary blood glucose measurement by glucometer (mas s/volume) 147 mg/dL 70-110 Capillary blood glucose measurement by g lucometer (mass/volume) - 10/26/15 06:14 Capillary blood glucose measurement by glucometer (mas s/volume) 128 mg/dL 70-110 Capillary blood glucose measurement by g lucometer (mass/volume) - 10/26/15 16:40 Capillary blood glucose measurement by glucometer (mas s/volume) 143 mg/dL 70-110 Capillary blood glucose measurement by g lucometer (mass/volume) - 10/26/15 20:51 Capillary blood glucose measurement by glucometer (mas s/volume) 228 mg/dL 70-110 Capillary blood glucose measurement by g lucometer (mass/volume) - 10/27/15 05:19 Capillary blood glucose measurement by glucometer (mas s/volume) 109 mg/dL 70-110 Capillary blood glucose measurement by g lucometer (mass/volume) - 10/27/15 09:56 Capillary blood glucose measurement by glucometer (mas s/volume) 207 mg/dL 70-110 Capillary blood glucose measurement by g lucometer (mass/volume) - 10/27/15 13:50 Capillary blood glucose measurement by glucometer (mas s/volume) 180 mg/dL 70-110 Capillary blood glucose measurement by g lucometer (mass/volume) - 10/27/15 20:10 Capillary blood glucose measurement by glucometer (mas s/volume) 157 mg/dL 70-110 Capillary blood glucose measurement by g lucometer (mass/volume) - 10/28/15 05:08 Capillary blood glucose measurement by glucometer (mas s/volume) 124 mg/dL 70-110 Capillary blood glucose measurement by g lucometer (mass/volume) - 10/28/15 12:14 Capillary blood glucose measurement by glucometer (mas s/volume) 147 mg/dL 70-110 Capillary blood glucose measurement by g lucometer (mass/volume) - 10/28/15 17:46 Capillary blood glucose measurement by glucometer (mas s/volume) 158 mg/dL 70-110 Capillary blood glucose measurement by g lucometer (mass/volume) - 10/28/15 21:08 Capillary blood glucose measurement by glucometer (mas s/volume) 120 mg/dL 70-110 Capillary blood glucose measurement by g lucometer (mass/volume) - 10/29/15 05:38 Capillary blood glucose measurement by glucometer (mas s/volume) 136 mg/dL 70-110 Capillary blood glucose measurement by g lucometer (mass/volume) - 10/29/15 10:15 Capillary blood glucose measurement by glucometer (mas s/volume) 153 mg/dL 70-110 Capillary blood glucose measurement by g lucometer (mass/volume) - 10/29/15 14:29 Capillary blood glucose measurement by glucometer (mas s/volume) 146 mg/dL 70-110 Capillary blood glucose measurement by g lucometer (mass/volume) - 10/29/15 20:40 Capillary blood glucose measurement by glucometer (mas s/volume) 193 mg/dL 70-110 Capillary blood glucose measurement by g lucometer (mass/volume) - 10/30/15 06:16 Capillary blood glucose measurement by glucometer (mas s/volume) 129 mg/dL 70-110 Capillary blood glucose measurement by g lucometer (mass/volume) - 10/30/15 09:57 Capillary blood glucose measurement by glucometer (mas s/volume) 192 mg/dL 70-110 Capillary blood glucose measurement by g lucometer (mass/volume) - 10/30/15 15:25 Capillary blood glucose measurement by glucometer (mas s/volume) 143 mg/dL 70-110 Capillary blood glucose measurement by g lucometer (mass/volume) - 10/30/15 20:07 Capillary blood glucose measurement by glucometer (mas s/volume) 190 mg/dL 70-110 Capillary blood glucose measurement by g lucometer (mass/volume) - 10/31/15 05:18 Capillary blood glucose measurement by glucometer (mas s/volume) 137 mg/dL 70-110 Capillary blood glucose measurement by g lucometer (mass/volume) - 10/31/15 10:35 Capillary blood glucose measurement by glucometer (mas s/volume) 146 mg/dL 70-110 Capillary blood glucose measurement by g lucometer (mass/volume) - 10/31/15 14:45 Capillary blood glucose measurement by glucometer (mas s/volume) 156 mg/dL 70-110 Capillary blood glucose measurement by g lucometer (mass/volume) - 10/31/15 21:08 Capillary blood glucose measurement by glucometer (mas s/volume) 153 mg/dL 70-110 Capillary blood glucose measurement by g lucometer (mass/volume) - 11/01/15 06:14 Capillary blood glucose measurement by glucometer (mas s/volume) 122 mg/dL 70-110 Capillary blood glucose measurement by g lucometer (mass/volume) - 11/01/15 09:28 Capillary blood glucose measurement by glucometer (mas s/volume) 133 mg/dL 70-110 Capillary blood glucose measurement by g lucometer (mass/volume) - 11/01/15 14:38 Capillary blood glucose measurement by glucometer (mas s/volume) 146 mg/dL 70-110 Capillary blood glucose measurement by g lucometer (mass/volume) - 11/01/15 20:41 Capillary blood glucose measurement by glucometer (mas s/volume) 156 mg/dL 70-110 Capillary blood glucose measurement by g lucometer (mass/volume) - 11/02/15 05:44 Capillary blood glucose measurement by glucometer (mas s/volume) 117 mg/dL 70-110 Capillary blood glucose measurement by g lucometer (mass/volume) - 11/02/15 10:18 Capillary blood glucose measurement by glucometer (mas s/volume) 172 mg/dL 70-110 Capillary blood glucose measurement by g lucometer (mass/volume) - 11/02/15 14:20 Capillary blood glucose measurement by glucometer (mas s/volume) 106 mg/dL 70-110 Capillary blood glucose measurement by g lucometer (mass/volume) - 11/02/15 22:32 Capillary blood glucose measurement by glucometer (mas s/volume) 86 mg/dL 70-110 Complete blood count (CBC) with automate d white blood cell (WBC) differential - 11/03/15 06:00 Blood leukocytes automated count (number/volume) 7.3 10*3/uL 4.3-11.0 Blood erythrocytes automated count (number/volume) 2.92 10*6/uL 4.35-5.85 Venous blood hemoglobin measurement (mass/volume) 8.9 g/dL 13.3-17.7 Blood hematocrit (volume fraction) 28 % 40-54 Automated erythrocyte mean corpuscular volume 96 [ foz_us] 80-99 Automated erythrocyte mean corpuscular h emoglobin (mass per erythrocyte) 31 pg 25-34 Automated erythrocyte mean corpuscular h emoglobin concentration measurement (mass/volume) 32 g/dL 32-36 Automated erythrocyte distribution width ratio 14. 9 % 10.0- 14.5 Automated blood platelet count (count/volume) 543 10*3/uL 130-400 Automated blood platelet mean volume measurement 9.9 [foz_us] 7.4-10.4 Automated blood neutrophils/100 leukocytes 63 % 42-75 Automated blood lymphocytes/100 leukocytes 22 % 12-44 Blood monocytes/100 leukocytes 13 % 0-12 Automated blood eosinophils/100 leukocytes 1 % 0-10 Automated blood basophils/100 leukocytes 1 % 0-10 Blood neutrophils automated count (number/volume) 4.5 10*3 1.8-7.8 Blood lymphocytes automated count (number/volume) 1.6 10*3 1.0-4.0 Blood monocytes automated count (number/volume) 1. 0 10*3 0.0-1.0 Automated eosinophil count 0.1 10*3/uL 0 .0-0.3 Automated blood basophil count (count/volume) 0.1 10*3/uL 0.0-0.1 Comprehensive metabolic panel - 11/03/15 06:00 Serum or plasma sodium measurement (moles/volume) 133 mmol/L 135-145 Serum or plasma potassium measurement (moles/volume) 4.1 mmol/L 3.6-5.0 Serum or plasma chloride measurement (moles/volume) 99 mmol/L 98-107 Carbon dioxide 25 mmol/L 21-32 Serum or plasma anion gap determination (moles/volume) 9 mmol/L 5-14 Serum or plasma urea nitrogen measurement (mass/volume ) 20 mg/dL 7-18 Serum or plasma creatinine measurement (mass/volume) 1.00 mg/dL 0.60-1.30 Serum or plasma urea nitrogen/creatinine mass ratio 20 NRG Serum or plasma creatinine measurement w ith calculation of estimated glomerular filtration rate > NRG Serum or plasma glucose measurement (mass/volume) 134 mg/dL 70-105 Serum or plasma calcium measurement (mass/volume) 8.9 mg/dL 8.5-10.1 Serum or plasma total bilirubin measurement (mass/volu me) 0.9 mg/dL 0.1-1.0 Serum or plasma alkaline phosphatase asha surement (enzymatic activity/volume) 53 U/L 40-136 Serum or plasma aspartate aminotransfera se measurement (enzymatic activity/volume) 22 U/L 5-34 Serum or plasma alanine aminotransferase measurement (enzymatic activity/volume) 25 U/L 0-55 Serum or plasma protein measurement (mass/volume) 7.0 g/dL 6.4-8.2 Serum or plasma albumin measurement (mass/volume) 2.9 g/dL 3.2-4.5 Capillary blood glucose measurement by g lucometer (mass/volume) - 11/03/15 09:39 Capillary blood glucose measurement by glucometer (mas s/volume) 127 mg/dL 70-110 CBC with Auto Diff - 11/22/15 10:20 Baso% 0.50 % 0.00-2.50 Eos 0.2 K/uL 0.0-0.7 Eos% 2.8 % 0.0-7.0 Hct 27.0 % 42.0-52.0 Hgb 8.3 g/dL 14.0-17.0 Lym 2.05 K/uL 0.60-3.40 Lym% 27.0 % 10.0-50.0 MCH 28.5 pg 27.0-31.2 MCHC 30.7 g/dL 32.0-36.0 MCV 92.8 fL 80.0-97.0 Eaton% 8.7 % 0.0-12.0 MPV 9.9 fL 7.4-10.0 Rudi% 61.0 % 37.0-80.0 Plt 529 K/uL 150-400 RBC 2.91 M/uL 4.20-5.40 RDW 15.6 % 11.6-14.8 WBC 7.59 K/uL 5.00-10.00 Urdi 4.63 K/uL 2.00-6.90 Eaton 0.7 K/uL 0.0-0.9 Baso 0.0 K/uL 0.0-0.2 Complete blood count (CBC) with automate d white blood cell (WBC) differential - 12/05/15 16:27 Blood leukocytes automated count (number/volume) 9.0 10*3/uL 4.3-11.0 Blood erythrocytes automated count (number/volume) 3.21 10*6/uL 4.35-5.85 Venous blood hemoglobin measurement (mass/volume) 9.1 g/dL 13.3-17.7 Blood hematocrit (volume fraction) 29 % 40-54 Automated erythrocyte mean corpuscular volume 90 [ foz_us] 80-99 Automated erythrocyte mean corpuscular h emoglobin (mass per erythrocyte) 28 pg 25-34 Automated erythrocyte mean corpuscular h emoglobin concentration measurement (mass/volume) 31 g/dL 32-36 Automated erythrocyte distribution width ratio 16. 9 % 10.0- 14.5 Automated blood platelet count (count/volume) 575 10*3/uL 130-400 Automated blood platelet mean volume measurement 9.1 [foz_us] 7.4-10.4 Automated blood neutrophils/100 leukocytes 65 % 42-75 Automated blood lymphocytes/100 leukocytes 22 % 12-44 Blood monocytes/100 leukocytes 10 % 0-12 Automated blood eosinophils/100 leukocytes 2 % 0-10 Automated blood basophils/100 leukocytes 1 % 0-10 Blood neutrophils automated count (number/volume) 5.9 10*3 1.8-7.8 Blood lymphocytes automated count (number/volume) 2.0 10*3 1.0-4.0 Blood monocytes automated count (number/volume) 0. 9 10*3 0.0-1.0 Automated eosinophil count 0.2 10*3/uL 0 .0-0.3 Automated blood basophil count (count/volume) 0.1 10*3/uL 0.0-0.1 PT panel in platelet poor plasma by coag ulation assay - 12/05/15 16:27 Prothrombin time (PT) in platelet poor plasma by coagu lation assay 13.8 s 12.2-14.7 INR in platelet poor plasma or blood by coagulation as say 1.1 0.8-1.4 Activated partial thromboplastin time (a PTT) in platelet poor plasma bycoagulation assay - 12/05/15 16:27 Activated partial thromboplastin time (a PTT) in platelet poor plasma bycoagulation assay 31 s 24-35 Comprehensive metabolic panel - 12/05/15 16:27 Serum or plasma sodium measurement (moles/volume) 132 mmol/L 135-145 Serum or plasma potassium measurement (moles/volume) 4.3 mmol/L 3.6-5.0 Serum or plasma chloride measurement (moles/volume) 98 mmol/L 98-107 Carbon dioxide 23 mmol/L 21-32 Serum or plasma anion gap determination (moles/volume) 11 mmol/L 5-14 Serum or plasma urea nitrogen measurement (mass/volume ) 16 mg/dL 7-18 Serum or plasma creatinine measurement (mass/volume) 1.04 mg/dL 0.60-1.30 Serum or plasma urea nitrogen/creatinine mass ratio 15 NRG Serum or plasma creatinine measurement w ith calculation of estimated glomerular filtration rate > NRG Serum or plasma glucose measurement (mass/volume) 126 mg/dL 70-105 Serum or plasma calcium measurement (mass/volume) 9.6 mg/dL 8.5-10.1 Serum or plasma total bilirubin measurement (mass/volu me) 0.4 mg/dL 0.1-1.0 Serum or plasma alkaline phosphatase asha surement (enzymatic activity/volume) 68 U/L 40-136 Serum or plasma aspartate aminotransfera se measurement (enzymatic activity/volume) 9 U/L 5-34 Serum or plasma alanine aminotransferase measurement (enzymatic activity/volume) 11 U/L 0-55 Serum or plasma protein measurement (mass/volume) 7.7 g/dL 6.4-8.2 Serum or plasma albumin measurement (mass/volume) 3.4 g/dL 3.2-4.5 Magnesium - 12/05/15 16:27 Magnesium 2.0 mg/dL 1.8-2.4 Sed Rate - 02/27/16 13:43 Sed Rate 41 mm/hr 0-9 Comprehensive metabolic panel - 09/28/16 13:25 Serum or plasma sodium measurement (moles/volume) 138 mmol/L 135-145 Serum or plasma potassium measurement (moles/volume) 4.7 mmol/L 3.6-5.0 Serum or plasma chloride measurement (moles/volume) 102 mmol/L 98-107 Carbon dioxide 26 mmol/L 21-32 Serum or plasma anion gap determination (moles/volume) 10 mmol/L 5-14 Serum or plasma urea nitrogen measurement (mass/volume ) 20 mg/dL 7-18 Serum or plasma creatinine measurement (mass/volume) 1.06 mg/dL 0.60-1.30 Serum or plasma urea nitrogen/creatinine mass ratio 19 NRG Serum or plasma creatinine measurement w ith calculation of estimated glomerular filtration rate > NRG Serum or plasma glucose measurement (mass/volume) 101 mg/dL 70-105 Serum or plasma calcium measurement (mass/volume) 10.1 mg/dL 8.5-10.1 Serum or plasma total bilirubin measurement (mass/volu me) 1.1 mg/dL 0.1-1.0 Serum or plasma alkaline phosphatase asha surement (enzymatic activity/volume) 73 U/L 40-136 Serum or plasma aspartate aminotransfera se measurement (enzymatic activity/volume) 17 U/L 5-34 Serum or plasma alanine aminotransferase measurement (enzymatic activity/volume) 13 U/L 0-55 Serum or plasma protein measurement (mass/volume) 8.3 g/dL 6.4-8.2 Serum or plasma albumin measurement (mass/volume) 4.2 g/dL 3.2-4.5 Lipid 1996 panel - 09/28/16 13:25 Serum or plasma triglyceride measurement (mass/volume) 116 mg/dL <150 Serum or plasma cholesterol measurement (mass/volume) 200 mg/dL < 200 Serum or plasma cholesterol in HDL measurement (mass/v olume) 37 mg/dL 40-60 Cholesterol in LDL [mass/volume] in serum or plasma by direct assay 141 mg/dL 1-129 Serum or plasma cholesterol in VLDL measurement (mass/ volume) 23 mg/dL 5-40 THYROID STIMULATING HORMONE - 09/28/16 1 3:25 THYROID STIMULATING HORMONE 1.73 u[iU]/mL 0.35-4.94 Complete blood count (CBC) with automate d white blood cell (WBC) differential - 09/28/16 13:25 Blood leukocytes automated count (number/volume) 4.8 10*3/uL 4.3-11.0 Blood erythrocytes automated count (number/volume) 4.02 10*6/uL 4.35-5.85 Venous blood hemoglobin measurement (mass/volume) 12.4 g/dL 13.3-17.7 Blood hematocrit (volume fraction) 38 % 40-54 Automated erythrocyte mean corpuscular volume 94 [ foz_us] 80-99 Automated erythrocyte mean corpuscular h emoglobin (mass per erythrocyte) 31 pg 25-34 Automated erythrocyte mean corpuscular h emoglobin concentration measurement (mass/volume) 33 g/dL 32-36 Automated erythrocyte distribution width ratio 15. 0 % 10.0- 14.5 Automated blood platelet count (count/volume) 387 10*3/uL 130-400 Automated blood platelet mean volume measurement 10.4 [foz_us] 7.4-10.4 Automated blood neutrophils/100 leukocytes 59 % 42-75 Automated blood lymphocytes/100 leukocytes 29 % 12-44 Blood monocytes/100 leukocytes 9 % 0-12 Automated blood eosinophils/100 leukocytes 2 % 0-10 Automated blood basophils/100 leukocytes 1 % 0-10 Blood neutrophils automated count (number/volume) 2.8 10*3 1.8-7.8 Blood lymphocytes automated count (number/volume) 1.4 10*3 1.0-4.0 Blood monocytes automated count (number/volume) 0. 4 10*3 0.0-1.0 Automated eosinophil count 0.1 10*3/uL 0 .0-0.3 Automated blood basophil count (count/volume) 0.0 10*3/uL 0.0-0.1 Hemoglobin A1c - 09/28/16 13:25 Hemoglobin A1c 5.1 % 4.5-6.2 A1C - 01/23/17 10:21 HEMOGLOBIN A1c 5.4 % of total Hgb <5.7 CULTURE, ANAEROBIC AND AEROBIC - 9 16:52 CULTURE, ANAEROBIC BACTERIA W/GRAM STAIN SEE NOTE NRG CULTURE, AEROBIC BACTERIA SEE NOTE NRG LIPID PANEL - 03/12/19 12:44 CHOLESTEROL, TOTAL 128 mg/dL <200 HDL CHOLESTEROL 35 mg/dL >40 TRIGLYCERIDES 108 mg/dL <150 LDL-CHOLESTEROL 74 mg/dL (calc) NRG CHOL/HDLC RATIO 3.7 (calc) <5.0 NON HDL CHOLESTEROL 93 mg/dL (calc) <130 BNP - 03/12/19 12:44 B TYPE NATRIURETIC PEPTIDE (BNP) 2157 pg/mL <100 PT panel in platelet poor plasma by coag ulation assay - 05/06/19 08:42 Prothrombin time (PT) in platelet poor plasma by coagu lation assay 15.7 s 12.2-14.7 INR in platelet poor plasma or blood by coagulation as say 1.2 0.8-1.4 Activated partial thromboplastin time (a PTT) in platelet poor plasma bycoagulation assay - 05/06/19 08:42 Activated partial thromboplastin time (a PTT) in platelet poor plasma bycoagulation assay 32 s 24-35 Comprehensive metabolic panel - 05/06/19 08:42 Serum or plasma sodium measurement (moles/volume) 141 mmol/L 135-145 Serum or plasma potassium measurement (moles/volume) 4.4 mmol/L 3.6-5.0 Serum or plasma chloride measurement (moles/volume) 105 mmol/L 98-107 Carbon dioxide 27 mmol/L 21-32 Serum or plasma anion gap determination (moles/volume) 9 mmol/L 5-14 Serum or plasma urea nitrogen measurement (mass/volume ) 22 mg/dL 7-18 Serum or plasma creatinine measurement (mass/volume) 1.34 mg/dL 0.60-1.30 Serum or plasma urea nitrogen/creatinine mass ratio 16 NRG Serum or plasma creatinine measurement w ith calculation of estimated glomerular filtration rate 53 NRG Serum or plasma glucose measurement (mass/volume) 109 mg/dL 70-105 Serum or plasma calcium measurement (mass/volume) 9.3 mg/dL 8.5-10.1 Serum or plasma total bilirubin measurement (mass/volu me) 2.3 mg/dL 0.1-1.0 Serum or plasma alkaline phosphatase asha surement (enzymatic activity/volume) 81 U/L 40-136 Serum or plasma aspartate aminotransfera se measurement (enzymatic activity/volume) 34 U/L 5-34 Serum or plasma alanine aminotransferase measurement (enzymatic activity/volume) 30 U/L 0-55 Serum or plasma protein measurement (mass/volume) 8.1 g/dL 6.4-8.2 Serum or plasma albumin measurement (mass/volume) 4.7 g/dL 3.2-4.5 Lipid 1996 panel - 05/06/19 08:42 Serum or plasma triglyceride measurement (mass/volume) 68 mg/dL <150 Serum or plasma cholesterol measurement (mass/volume) 141 mg/dL < 200 Serum or plasma cholesterol in HDL measurement (mass/v olume) 44 mg/dL 40-60 Cholesterol in LDL [mass/volume] in serum or plasma by direct assay 91 mg/dL 1-129 Serum or plasma cholesterol in VLDL measurement (mass/ volume) 14 mg/dL 5-40 Methicillin resistant Staphylococcus aur eus (MRSA) screening culture - 05/06/19 08:42 Methicillin resistant Staphylococcus aureus (MRSA) scr eening culture NEG NRG Coronavirus SARS-CoV-2 SO 2018 - 0 12:43 Coronavirus Ab [Units/volume] in Serum Negative Negative Encounters ACCT No. Visit Date/Time Discharge Status Pt. Type Provider Facility Loc./Unit Complaint [id number] 05/07/2016 13:36:00 06/07/2016 13:55: 00 DIS Outpatient MARY BETH LOYOLA [id number] 02/27/2016 13:40:00 02/27/2016 23:59: 00 DIS Outpatient MILLA MARY BETH [id number] 02/27/2016 11:57:00 02/27/2016 23:59: 00 DIS Outpatient MARY BETH LOYOLA [id number] 12/26/2016 14:03:00 Document Registration [id number] 09/26/2016 14:29:00 Document Registration [id number] 11/22/2015 12:04:00 Document Registration [id number] 08/19/2019 09:03:00 23:59:59 CLS Outpatient ARELIS CALDERON [facility] LABNPT [id number] 08/13/2019 12:31:00 23:59:59 CLS Outpatient CATALINA ZIMMERMAN MD [facility] CARD CHF [id number] 06/22/2019 09:36:00 23:59:59 CLS Outpatient ARELIS CALDERON [facility] CARD CAD,CHF,DM,HTN,HYPERLIPIDEMIA [id number] 05/21/2019 07:36:00 23:59:59 CLS Outpatient CATALINA ZIMMERMAN MD [facility] CARD HTN [id number] 05/06/2019 07:16:00 15:10:00 DIS Outpatient CATALINA ZIMMERMAN MD [facility] CATH ABN STRESS TEST,CHF,CAD ,HTN,HLP [id number] 04/23/2019 08:18:00 23:59:59 CLS Outpatient CATALINA ZIMMERMAN MD [facility] CARD ACUTE ON CHRONIC COMBIN ED SYSTOLIC/DIASTOLIC CHF [id number] 04/13/2019 06:55:00 020 23:59:59 CLS Outpatient CATALINA ZIMMERMAN MD [facility] CARD HTN [id number] 03/02/2019 09:57:00 019 23:59:59 CLS Outpatient NICHOLAS HEATON APRN [facility] CARD SOB [id number] 09/28/2016 12:54:00 23:59:59 CLS Outpatient DYLAN GARCIA, ZENAIDA Knight [facility] LAB HTN,HIGH CHOL,ANEMIA,NI DDM [id number] 09/06/2016 13:31:00 23:59:59 CLS Outpatient AURELIO CHUCKY Dial SHANI [facility] RAD BILAT KNEE/ANKL E PAIN [id number] 12/05/2015 16:10:00 016 17:53:00 DIS Emergency JOLIE DO, JUAN K [facility] ER FALL/KNEE PAIN [id number] 10/21/2015 10:52:00 016 10:30:00 DIS Inpatient MARIE GARCIA, KEN Johnson [facility] IRF IRF [id number] 10/19/2015 08:59:00 016 10:52:00 DIS Inpatient ZHANG DO, CATRACHITO [facility] 4TH SWB,SEPTIC ARTHRITIS, S EPSIS [id number] 10/12/2015 20:53:00 016 08:50:00 DIS Inpatient ZHANG DO, CATRACHITO V [facility] 4TH SEPTIC SHOCK,SEPTIC ART HRITIS OF L KNEE [id number] 08/26/2019 09:00:00 P EN James ZIMMERMAN MD, CATALINA Acuna [facility] CATH CHF,CAD,HTN [id number] 01/12/2012 13:59:00 Document Registration [id number] 11/20/2011 13:14:00 Document Registration [id number] 11/17/2011 12:30:00 Document Registration [id number] 11/08/2011 13:09:00 Document Registration [id number] 05/12/2019 13:40:00 05/12/2019 23:59: 59 CLS Outpatient SHAYY MUÑOZ [facility] [id number] 03/12/2019 10:20:00 Document Registration [id number] 10/08/2018 15:40:00 Document Registration [id number] 01/23/2017 10:00:00 Document Registration
[2019-08-26] MEDS ORDERED: HEParin (CATH LAB) 1,000 ML IV ONE (07:13)
[2019-08-26] MEDS ORDERED: NS IV 1000 ML 1,000 ML ONE (07:13)
[2019-08-26] MEDS ORDERED: LIDOCAINE 1% INJ 20 ML 20 ML VIAL ONE (07:13)
[2019-08-26] MEDS ORDERED: ceFAZolin INJECTION 1,000 MG ONE (07:14)
[2019-08-26] MEDS ORDERED: BACITRACIN INJECTION 50,000 UNIT, SODIUM CHLORIDE 0.9% IRRIGATIO 500 ML IR ONE ×2 (07:15)
[2019-08-26] MEDS ORDERED: NS IV 1000 ML 1,000 ML IV SCH ×2 (07:15→11:30)
[2019-08-26 07:43] LABS: HEMOGLOBIN 11.3 G/DL (13.3-17.7); MEAN PLATELET VOLUME 10.7 FL (7.4-10.4); RED CELL DISTRIBUTION WIDTH 17.1 % (10.0-14.5); WHITE BLOOD COUNT 5.4 10^3/uL (4.3-11.0)
[2019-08-26 08:02] LABS: INR 1.1 (0.8-1.4)
[2019-08-26] MEDS ORDERED: LISI-556 PO (08:04)
[2019-08-26] MEDS ORDERED: CLOP75TA28 PO (08:04)
[2019-08-26] MEDS ORDERED: SPIR25TA PO (08:04)
[2019-08-26] MEDS ORDERED: PARO40TA3 PO (08:04)
[2019-08-26 08:08] LABS: ALBUMIN 4.5 GM/DL (3.2-4.5); BILIRUBIN,TOTAL 1.6 MG/DL (0.1-1.0); CALCIUM 9.3 MG/DL (8.5-10.1); CREATININE SERUM 1.45 MG/DL (0.60-1.30); POTASSIUM 4.6 MMOL/L (3.6-5.0); TOTAL PROTEIN 8.5 GM/DL (6.4-8.2)
--- NOTE | 2019-08-26 08:11 | Diagnostic Imaging Report ---
INDICATION: Preop FINDINGS: The heart is enlarged but unchanged from comparison 05/06/2019. No overt failure pattern, focal infiltrate, effusion or pneumothorax. IMPRESSION: No acute appearing abnormality. Dictated by: Dictated on workstation # [id number]
[2019-08-26] MEDS ORDERED: NS (IVPB) 50 ML ONE (08:53)
--- NOTE | 2019-08-26 09:53 | Cardiac Procedure Note-CS/ASA ---
Pre-Procedure Note Pre-Op Procedure Note H&P Reviewed The H&P was reviewed, patient examined and no changes noted. Date H&P Reviewed: Aug 26, 2019 Time H&P Reviewed: 09:52 Conscious Sedation Pre-Proced Time 09:53 ASA Score 3 For ASA 3 and 4: Consider anesthesia and medical clearance. Also, for patients with a history of failed moderate sedation consider anesthesia. Airway Lungs Heart ASA score ASA 1: a normal healthy patient ASA 2: a patient with a mild systemic disease (mid diabetes, controlled hypertension, obesity X ASA 3: a patient with a severe systemic disease that limits activity (angina, COPD, prior Myocardial infarction) ASA 4: a patient with an incapacitating disease that is a constant threat to life (CHF, renal failure) ASA 5: a moribund patient not expected to survive 24 hrs. (ruptured aneurysm) ASA 6: a declared brain- patient whose organs are being harvested. For emergent operations, add the letter E after the classification Mallampati Classification Grade 3 Sedation Plan Analgesia, Amnesia, Plan communicated to team members, Discussed options with patient/fam, Discussed risks with patient/fam The patient is an appropriate candidate to undergo the planned procedure, sedation, and anesthesia. The patient immediately re-assessed prior to indication. CATALINA ZIMMERMAN MD Aug 26, 2019 09:53
[2019-08-26] MEDS ORDERED: MIDAZOLAM 5 MG/5 ML (VERSED) VIAL ONE ×2 (10:08→10:51)
[2019-08-26] MEDS ORDERED: fentaNYL INJECTION 100 MCG/2 ML AMP ONE ×2 (10:08→10:51)
[2019-08-26] MEDS ORDERED: proPOfol 200 MG/20 ML (DIPRIVAN) VIAL IV ONE (11:21)
[2019-08-26] MEDS ORDERED: PATIENT MAY USE OWN MEDS, ALL PO SCH (11:30)
--- NOTE | 2019-08-26 11:39 | ICD Implantation ---
Single Chamber ICD Implant DATE OF SERVICE: 69 male SINGLE CHAMBER ICD IMPLANTATION MOVIE STAR: Catalina Noel INDICATION: Primary prevention PREOPERATIVE DIAGNOSES: Congestive heart failure, chronic compensated left ventricular systolic dysfunction POSTOPERATIVE DIAGNOSES: Congestive heart failure, chronic compensated left ventricular systolic dysfunction HISTORY: ICD implantation is recommended. PROCEDURE PERFORMED: 1. Single-chamber ICD implantation. 2. Implantable loop recorder explantation. 3. Venogram. 4. DFT testing. COMPLICATIONS: None. ESTIMATED BLOOD LOSS: 20 mL. SPECIMENS: None. ANESTHESIA: Conscious sedation. ORAL ANTICOAGULATION: None. FLUOROSCOPY TIME: 2.4 min FLUOROSCOPY DOSE: 87 mGy CONTRAST DOSE: 0 ml PROCEDURE DETAILS: After all the questions were answered, an informed consent was taken. All the risks and complication were explained in detail. The patient was brought to the EP lab. The patient's right and left chest was prepped and draped in the usual sterile fashion. A 2-inch horizontal incision was made 1 cm below the clavicle and dissection carried down to the pectoralis fascia. IV antibiotics were administered prior to first incision. Under fluoroscopic guidance, access was gained in the axillary vein and a regular J-wire was placed. We then introduced a sheath into the axillary vein. A ICD lead was inserted. This is a single- coiled ICD lead. The RV lead was inserted across the tricuspid valve to an apical septal portion of the RV. The lead position was checked in ROMANIAN and CIFUENTES view. The screw was deployed and lead connected to the cad cam programmer. Good sensi ng and pacing thresholds were obtained. Diaphragmatic pacing was ruled out. The lead was secured with 2-0 Vicryl nonabsorbable sutures. The lead was secured to the underlying muscle and fascia. We then took an ICD generator and the lead was connected to the device in a hermetic fashion. The device and it was placed in TYRX pouch to reduce the risk of infection and the device and the pouch were placed in the pocket. Aggressive irrigation with normal saline solution was done. Interrogation of the device revealed good integrity of the leads and connection. The wound was closed using 2 layers. The first layer was an interrupted 2-0 Vicryl. The second layer was an uninterrupted 4-0 Vicryl suture. Half inch Steri-Strips and a small dressing was then applied to the wound. DFT testing was done with anesthesia support. The induction mechanism was a T- shock. The first T-shock was at 290 milliseconds at one joule. Nonsustained VF was noted. We could not give therapy since it was nonsustained. Then, we did two shocks at 300 milliseconds for one joule. Nonsustained VF was seen however, no therapy was given. The fourth T-shock was done at 310 milliseconds at one joule and again it was nonsustained VF. Therefore, we did not shock the patient. DEVICE INFORMATION: VISIA MRI AF S US/OUS DE4 [id number] Right ventricular lead [id number] INTRAOPERATIVE DEVICE TESTING: Good sensing and capture activity DEVICE INTERROGATION IMMEDIATELY POSTOP: R-wave 8.3 mV, pacing impedance 380, HVB impedance 41, HVX impedance 38, pacing threshold 0.5 V at 0.4 ms PLAN: The patient will be observed for 23 hours. We will continue with two more dosages of IV antibiotics. We will check a chest x-ray and interrogate the device in the morning. An EKG will be done as well. If everything checks out, the patient will be discharged tomorrow. CONCLUSION: 1. Successful single-chamber ICD implantation with no complication 2. Successful DFT testing FINAL DIAGNOSIS: Congestive heart failure, chronic compensated left ventricular systolic dysfunction, ischemic cardiomyopathy Coronary artery disease Hypertension Hyperlipidemia CATALINA NOEL MD Aug 26, 2019 11:39
[2019-08-26] MEDS ORDERED: diphenhydrAMINE 25 MG TAB (BENADRYL) PO PRN ×2 (11:45→14:45)
[2019-08-26] MEDS ORDERED: GABAPENTIN 300 MG (NEURONTIN) CAP PO SCH (13:00)
--- NOTE | 2019-08-26 13:17 | Diagnostic Imaging Report ---
INDICATION: Pacemaker placement. TIME OF EXAM: 1:02 PM. COMPARISON: Correlation is made with the preprocedure chest from earlier this same day. FINDINGS: A cardiac defibrillator has been placed. No pneumothorax is identified. There is some density in the right suprahilar location which could represent some minimal infiltrate or atelectasis. Otherwise, the lungs are clear. There is no effusion. IMPRESSION: Defibrillator placement without evidence of pneumothorax. There is some questionable minimal right suprahilar infiltrate or atelectasis. Dictated by: Dictated on workstation # [id number]
[2019-08-26] MEDS ORDERED: MTP25TSR PO (15:24)
--- NOTE | 2019-08-26 15:31 | Anesthesia-General Post-Op ---
MAC Patient Condition Mental Status/LOC: Same as Preop Cardiovascular: Satisfactory Nausea/Vomiting: Absent Respiratory: Satisfactory Pain: Controlled Complications: Absent Post Op Complications Complications None Follow Up Care/Instructions Patient Instructions None needed. Anesthesiology Discharge Order Discharge Order Patient is doing well, no complaints, stable vital signs, no apparent adverse anesthesia problems. No complications reported per nursing. OZ CHENEY CRNA Aug 26, 2019 15:31
--- NOTE | 2019-08-26 15:41 | NUR ---
PATIENT'S HOME MEDS ID'D AND LABELED PATIENT'S OWN ASA, CLOPIDOGREL, DIPHENHYDRAMINE, FUROSEMIDE, GABAPENTIN, LANSOPRAZOLE, LOSARTAN, METOPROLOL SUCC, PAROXETINE, KCL & SPIRONOLACTONE - ALSO SENT BUT NOT USED LISINOPRIL (CLARIFIED W/DR ZIMMERMAN PT NO LONGER TAKING) AND METFORMIN & SIMVASTATIN BOTTLES WERE EMPTY - THESE WERE THE ONLY MEDS SENT TO PHARMACY AT THIS TIME
[2019-08-26] MEDS: GABAPENTIN 300 MG (NEURONTIN) CAP PO SCH ×2 (16:01→21:59)
[2019-08-26] MEDS: ceFAZolin INJECTION 1,000 MG in WATER (STERILE) FOR INJECTION 10 ML IV SCH ×2 (16:01→22:31)
[2019-08-26] MEDS: KCL 10 MEQ TAB (MICRO K) PO SCH (18:21)
[2019-08-26] MEDS: metFORMIN 500 MG (GLUCOPHAGE) TAB PO SCH (18:21)
[2019-08-26] MEDS ORDERED: SIMvastatin 10 MG (ZOCOR) TAB PO SCH (21:00)
[2019-08-27] VITALS: BP 124/81
[2019-08-27 04:00] VITALS: BP 118/75
[2019-08-27 05:03] LABS: HEMOGLOBIN 9.4 G/DL (13.3-17.7); MEAN PLATELET VOLUME 9.7 FL (7.4-10.4); RED CELL DISTRIBUTION WIDTH 17.2 % (10.0-14.5); WHITE BLOOD COUNT 5.4 10^3/uL (4.3-11.0)
[2019-08-27 05:25] LABS: ALBUMIN 3.7 GM/DL (3.2-4.5); BILIRUBIN,TOTAL 1.3 MG/DL (0.1-1.0); CALCIUM 8.7 MG/DL (8.5-10.1); CREATININE SERUM 1.22 MG/DL (0.60-1.30); POTASSIUM 4.6 MMOL/L (3.6-5.0); TOTAL PROTEIN 6.9 GM/DL (6.4-8.2)
[2019-08-27] MEDS ORDERED: CEFU500T63 PO (06:59)
[2019-08-27] MEDS: ceFAZolin INJECTION 1,000 MG in WATER (STERILE) FOR INJECTION 10 ML IV SCH (07:26)
[2019-08-27] MEDS: metFORMIN 500 MG (GLUCOPHAGE) TAB PO SCH (07:26)
[2019-08-27] MEDS: KCL 10 MEQ TAB (MICRO K) PO SCH (07:27)
[2019-08-27] MEDS: GABAPENTIN 300 MG (NEURONTIN) CAP PO SCH (07:30)
[2019-08-27 07:37] VITALS: BP 117/72
[2019-08-27] MEDS ORDERED: meTOprolol TARTRATE 25 MG (LOPRESSOR) TABLET PO SCH (09:00)
[2019-08-27] MEDS ORDERED: PAROXETINE HCL 40 MG PO SCH (09:00)
[2019-08-27] MEDS ORDERED: SPIRONOLACTONE 25 MG (ALDACTONE) TAB PO SCH (09:00)
[2019-08-27] MEDS ORDERED: lisINopril 5 MG (PRINIVIL) TABLET PO SCH (09:00)
[2019-08-27] MEDS ORDERED: LANSOPRAZOLE 15 MG PO SCH (09:00)
[2019-08-27] MEDS ORDERED: CLOPIDOGREL 75 MG (PLAVIX) TABLET PO SCH (09:00)
[2019-08-27] MEDS ORDERED: FUROSEMIDE 40 MG (LASIX) TAB PO SCH (09:00)
[2019-08-27] MEDS ORDERED: ASPIRIN E.C. 81 MG (ECOTRIN) TAB PO SCH (09:00)
[2019-08-27] MEDS ORDERED: LOSARTAN 25 MG (COZAAR) TAB PO SCH (09:00)
--- NOTE | 2019-08-27 09:05 | Discharge Inst-Post CATH ---
Discharge Inst-CATH/EP Problems Reviewed?: Yes Post Cardiac Cath/EP D/C Inst Follow Up/Plan Appointment with Dr. ZIMMERMAN's office next week <b>CARDIAC CATH/EP PROCEDURE DISCHARGE INSTRUCTIONS</b> ACTIVITY * Go Home directly and rest. * Limit activity of the leg (or wrist if it was used) for 7 days including aerobics, swimming, jogging, bicycling, etc. * Restrict stair-climbing for 7 days if possible, if not, climb up with your non-cath leg, then bring together on the same step. * Avoid lifting, pushing, pulling or excessive movement of the affected extremity for 7 days. * Customary sexual activity may be resumed after 2 days-use caution not to use a position that strains or causes pain to the affected extremity. * No driving for 24 hours. * NO SMOKING. * Avoid straining for bowel movements for 7 days. * Gentle walking on level ground is allowed. * Returning to work will depend on the type of procedure and the results. Your doctor will discuss this with you. CALL YOUR DOCTOR FOR ANY OF THE FOLLOWING: *If bleeding from the puncture site occurs- Apply gentle pressure to site with clean cloth and call your doctor or EMS. * If a knot or lump forms under the skin, increases in size, or causes pain. * If bruising appears to be worsening or moving further down your leg instead of disappearing. * Temperature above 101 F. CARE OF YOUR GROIN INCISION; * Bruising or purple discoloration of the skin near the puncture site is common. * You may shower only, no bathtub bathing for 5 days. Be careful to avoid slipping as your leg may feel stiff. * If a closure device was used on your femoral artery, please see the attached guide regarding care of the device and your leg. * Leave dressing on FOR 24 hours. CARE OF YOUR WRIST INCISION; * Bruising or purple discoloration of the skin near the puncture site is common. * You may shower. * DO NOT submerge wrist. * Leave dressing on FOR 24 hours. CATALINA ZIMMERMAN MD Aug 27, 2019 9:05 am
--- NOTE | 2019-08-27 09:07 | Cardiology Progress Note ---
Subjective Date Seen by Provider: Aug 27, 2019 Time Seen by Provider: 09:06 Subjective/Events-last exam Patient is laying down in bed, feeling well, site is healing well. Review of Systems General: No Chills, No Night Sweats, No Fatigue, No Malaise, No Appetite, No Other HEENT: No Head Aches, No Visual Changes, No Eye Pain, No Ear Pain, No Dysphasia, No Sinus Congestion, No Post Nasal Drip, No Sore Throat, No Other Pulmonary: No Dyspnea, No Cough, No Pleuritic Chest Pain, No Other Cardiovascular: No: Chest Pain, Palpitations, Orthopnea, Paroxysmal Noc. Dyspnea, Edema, Lt Headedness, Other Objective-Cardiology Exam Last Set of Vital Signs Vital Signs 08/27/19 08/27/19 07:37 08:37 Temp 36.0 Pulse 85 Resp 18 B/P (MAP) 117/72 (87) Pulse Ox 98 O2 Delivery Room Air Capillary Refill : I&O Intake and Output 08/27/19 00:00 Intake Total 1020 ml Output Total 450 ml Balance 570 ml Intake Oral 1020 ml Output Urine Total 450 ml General: Alert, Oriented X3, Cooperative HEENT: Atraumatic, PERRLA Neck: Supple, No JVD, No Thyromegaly Lungs: Clear to Auscultation, Normal Air Movement Heart: Regular Rate, Normal S1, Normal S2, No Murmurs Abdomen: Normal Bowel Sounds, Soft, No Tenderness, No Hepatosplenomegaly, No Masses Extremities: No Clubbing, No Cyanosis, No Edema, Normal Pulses, No Tenderness/Swelling Skin: No Rashes, No Breakdown, No Significant Lesion Neuro: Normal Gait, Normal Speech, Strength at 5/5 X4 Ext, Normal Tone, Sensation Intact Psych/Mental Status: Mental Status NL, Mood NL Results Lab Laboratory Tests 08/27/19 04:55 A/P-Cardiology Admission Diagnosis Congestive heart failure, chronic compensated left ventricle systolic dysfunction, ischemic cardiomyopathy ejection fraction less than 30 percent Coronary artery disease Hypertension Hyperlipidemia Assessment/Plan Congestive heart failure, chronic compensated left ventricular systolic dysfunction, continue on current medication Status post single-chamber ICD with DFT testing done for primary prevention functioning well, tested today. Coronary artery disease, clinically stable, continue to monitor next Hypertension, continue current medication monitor blood pressure Hyperlipidemia, monitor lipids CATALINA ZIMMERMAN MD Aug 27, 2019 9:07 am
--- NOTE | 2019-08-27 10:40 | NUR ---
KIMBERLY PAULINO demonstrates understanding of discharge instructions and accurately returns instructions upon questioning. Copy of Post-Discharge Instructions and Medication Discharge Instructions given to PT. KIMBERLY PAULINO is able to manage continuing needs after discharge. Patients belongings returned to PT. Skin dry and intact; no breakdown noted. Patient discharged from [facility]- on 08/27/19 at 1040. KIMBERLY PAULINO left floor via WC, accompanied by STAFF.
== END 2019-08-27 10:40 | disposition home or self-care (01) ==
LOC: CATH 07:03 → CSD 12:10 → CATH 08-27 10:40
PROVIDERS: ATTEND Internal Medicine Cardiovascular Disease
DX: I13.0 Hypertensive heart and chronic kidney disease with heart failure and stage 1 through stage 4 chronic kidney disease, or unspecified chronic kidney disease (principal); I50.22 Chronic systolic (congestive) heart failure; E11.22 Type 2 diabetes mellitus with diabetic chronic kidney disease; N18.9 Chronic kidney disease, unspecified; I65.23 Occlusion and stenosis of bilateral carotid arteries; I25.10 Atherosclerotic heart disease of native coronary artery without angina pectoris; I25.5 Ischemic cardiomyopathy; E78.2 Mixed hyperlipidemia; E66.9 Obesity, unspecified; Z79.02 Long term (current) use of antithrombotics/antiplatelets; Z79.82 Long term (current) use of aspirin; Z79.84 Long term (current) use of oral hypoglycemic drugs; Z88.8 Allergy status to other drugs, medicaments and biological substances; Z79.899 Other long term (current) drug therapy; Z68.31 Body mass index [BMI] 31.0-31.9, adult; Z87.891 Personal history of nicotine dependence
CPT/HCPCS: 33249; 36415; 71045; 80053; 85027; 85610; 85730; 87081; 93005; 93641

== ENCOUNTER 2021-02-08 18:52 | Emergency (ER) | payer MEDICARE ==
[~2021-02-08] VITALS: Ht 190 cm; Wt 113.0 kg
[~2021-02-08 18:52] MED LIST changes: +ASPI-1238 PO; -ASPI-983 PO; +CEFU500T63 PO; -CETI10TA21 PO; +CETI10TA49 PO; +CLOP75TA28 PO; -GEMF600T8 PO; +GEMF600T88 PO; +GLBR2.5T PO; -GLYB2.5T4 PO; +LANS15CA18 PO; -LANS15CA21 PO; -LISI-556 PO; +LISI-729 PO; -MONT10TA26 PO; +MONT10TA32 PO; +SPIR25TA PO
--- NOTE | 2021-02-08 19:47 | ED Lower Extremity ---
General Chief Complaint: Lower Extremity Stated Complaint: FOOT BLISTER Nursing Triage Note: PATIENT REPORTS TO ED FOR LEFT FOOT BLISTER THAT WAS NOTICED YESTERDAY. REPORTS HE THINKS IT MAY HAVE TO DO WITH HIM FALLING 02/06/2021. PATIENT IS TYPE TWO DIABETIC. BROUGHT TO ROOM 03 BY POWER CHAIR. PATIENT ALSO C/O RT SHOULDER PAIN, BELIEVES IT IS DUE TO FALL WELL. DAUGHTER PRESENT. Source: patient Exam Limitations: no limitations History of Present Illness Date Seen by Provider: Feb 08, 2021 Time Seen by Provider: 19:33 Initial Comments This is a well-appearing 71-year-old male who presented to the ER with his daughter for concerns of left foot pain and a developing blister on his foot that he noticed yesterday. States that he fell on 02/06/2021 at home and had been icing his foot. However over the past 2 days he has noticed this increasing blister. States that he is applied ice and elevated occasionally. Does note that he is a type II diabetic and takes oral antidiabetic medication but does not check his blood glucose. Additionally reports some right shoulder pain that he has had in the past however unsure if he had any additional injury during the fall. Denies injury to head/neck. No loss of consciousness. He usually gets around with his electric scooter. No fever, chills, cough, shortness, of breath, nausea, vomiting, abdominal pain. Onset: other (4 days ago ) Pain/Injury Location: left foot Method of Injury: fell Allergies and Home Medications Allergies Coded Allergies: sacubitril (Verified Allergy, Unknown, 05/06/19) valsartan (Verified Allergy, Unknown, 05/06/19) Patient Home Medication List Home Medication List Reviewed: Yes Acetaminophen (Tylenol Extra Strength) 500 Mg Tablet, 1,000 MG PO Q8H PRN for PAIN-MILD (1-4), (Reported) Entered as Reported by: CELINE POE on 05/06/19928 Aspirin (Aspirin EC) 81 Mg Tablet.dr, 81 MG PO DAILY, (Reported) Entered as Reported by: CELINE POE on 05/06/19928 Cefuroxime Axetil (Cefuroxime) 500 Mg Tablet, 500 MG PO BID Prescribed by: CATALINA ZIMMERMAN on 08/27/1961 Cetirizine HCl (Zyrtec) 10 Mg Tablet, 10 MG PO DAILY, (Reported) Entered as Reported by: CELINE POE on 05/06/19928 Clopidogrel Bisulfate (Clopidogrel) 75 Mg Tablet, 75 MG PO DAILY, (Reported) Entered as Reported by: EDDA REESE on 08/26/19803 Diphenhydramine HCl (Benadryl Allergy) 25 Mg Tablet, 25-50 MG PO HS PRN for ALLERGY SYMPTOMS, (Reported) Entered as Reported by: CELINE POE on 05/06/19928 Furosemide (Lasix) 40 Mg Tablet, 40 MG PO DAILY, (Reported) Entered as Reported by: CELINE POE on 05/06/19928 Gabapentin (Gabapentin) 300 Mg Capsule, 300 MG PO TID, (Reported) Entered as Reported by: CELINE OPE on 05/06/19928 Gluc Ortega/Chondro Ortega A/Vit C/Mn (Glucosamine Chondroitin Tab) 1 Each Tablet, 1 EACH PO BID, (Reported) Entered as Reported by: CELINE POE on 05/06/19928 Hydrocodone/Acetaminophen (Hydrocodone-Acetamin 5-325 mg) 1 Each Tablet, 1 TAB PO Q6H PRN for PAIN-MODERATE (5-7) Prescribed by: HOLLY GEORGE on 02/08/212204 Lansoprazole (Prevacid) 15 Mg Capsule.dr, 15 MG PO DAILY, (Reported) Entered as Reported by: CELINE POE on 05/06/19928 Losartan Potassium (Losartan Potassium) 50 Mg Tablet, 50 MG PO DAILY, (Reported) Entered as Reported by: CELINE POE on 05/06/19928 Metformin HCl (Metformin HCl) 1,000 Mg Tablet, 1,000 MG PO BID Prescribed by: CATALINA ZIMMERMAN on 05/06/19 1110 Metoprolol Succinate (Metoprolol Succinate) 25 Mg Tab.er.24h, 25 MG PO DAILY, (Reported) Entered as Reported by: WENDY BECKFORD on 08/26/19 1524 Paroxetine HCl (Paroxetine HCl) 40 Mg Tablet, 40 MG PO DAILY, (Reported) Entered as Reported by: EDDA REESE on 08/26/19 08 Potassium Chloride (Potassium Chloride) 10 Meq Tab.er.prt, 10 MEQ PO BID, (Reported) Entered as Reported by: CELINE POE on 05/06/19928 Simvastatin (Simvastatin) 10 Mg Tablet, 10 MG PO HS, (Reported) Entered as Reported by: CELINE POE on 05/06/19928 Spironolactone (Aldactone) 25 Mg Tablet, 25 MG PO DAILY, (Reported) Entered as Reported by: EDDA REESE on 08/26/19 0804 Review of Systems Constitutional: no symptoms reported EENTM: no symptoms reported Respiratory: no symptoms reported Cardiovascular: no symptoms reported Gastrointestinal: no symptoms reported Genitourinary: no symptoms reported Musculoskeletal: see HPI Skin: see HPI Psychiatric/Neurological: No Symptoms Reported Past Qqyayei-Nxrbbt-Ivnhcv Hx Patient Social History Tobacco Use?: No Smoking Status: Former Smoker Substance use?: No Alcohol Use?: Yes Alcohol type: Beer Alcohol Frequency: Once in a while Immunizations Up To Date Tetanus Booster (TDap): Less than 5yrs PED Vaccines UTD: No First/Initial COVID19 Vaccinat: 05/23/2020 Second COVID19 Vaccination Kuldip: 06/20/2020 COVID19 Vaccine Corporate Relations Manager: NOT SURE WHICH ONE Seasonal Allergies Seasonal Allergies: Yes Past Medical History Surgery/Hospitalization HX: KNEE SURGERY 2018. Coronary Stent, Joint Replacement, Orthopedic Respiratory: Yes Sleep Apnea Currently Using CPAP: No Currently Using BIPAP: No Cardiac: Yes Cardiomyopathy, Coronary Artery Disease, Hypertension Neurological: Yes (BEEN TOLD LIKELY HAS HAD A STROKE IN THE PAST) Neuropathy, Stroke Reproductive Disorders: No Genitourinary: No Gastrointestinal: Yes Gastroesophageal Reflux Arthritis, Rheumatoid Arthritis, Back Injury Diabetes, Non-Insulin dep Loss of Vision: Denies Hearing Impairment: Hard of Hearing Cancer: No Anxiety, Depression Blood Disorders: Yes (ANEMIA) Adverse Reaction/Blood Tranf: No Family Medical History Alcoholism G8 BROTHER, Onset:Unknown Completed stroke 19 MOTHER, , Onset:Unknown Diabetes mellitus G8 BROTHER, Onset:Unknown G8 BROTHER, Onset:Unknown FH: cancer 19 FATHER, , Onset:60 years & older G8 BROTHER, Onset:Unknown G8 SISTER, Onset:Unknown Hypertension 19 MOTHER, , Onset:Unknown G8 SISTER, Onset:Unknown Myocardial infarction 19 FATHER, , Onset:60 years & older Physical Exam Vital Signs Vital Signs - First Documented Capillary Refill : Less Than 3 Seconds Height, Weight, BMI Height: 6'3.00" Weight: 240lbs. 8.0oz. 109.747288rx; 31.00 BMI Method:Stated General Appearance: WD/WN, no apparent distress HEENT: PERRL/EOMI, normal ENT inspection Neck: full range of motion, normal inspection Cardiovascular: normal peripheral pulses, regular rate, rhythm Respiratory: chest non-tender, lungs clear, normal breath sounds, no respiratory distress, no accessory muscle use Gastrointestinal: normal bowel sounds, non tender, soft Back: normal inspection, no vertebral tenderness Hips: bilateral hip non-tender, bilateral hip normal inspection, bilateral hip normal range of motion, bilateral hip no evidence of injury Legs: bilateral leg non-tender, bilateral leg normal inspection, bilateral leg normal range of motion, bilateral leg no evidence of injury Knees: bilateral knee non-tender, bilateral knee normal inspection, bilateral knee normal range of motion, bilateral knee no evidence of injury Ankles: right ankle non-tender, right ankle normal inspection, right ankle normal range of motion, right ankle no evidence of injury; left ankle ecchymosis, left ankle pain, left ankle soft tissue tenderness, left ankle swelling Feet: right foot non-tender, right foot normal inspection, right foot normal range of motion, right foot no evidence of injury; left foot bone tenderness, left foot ecchymosis, left foot limited range of motion, left foot pain, left foot soft tissue tenderness, left foot swelling, left foot other (fracture blister on distal aspect of dorsal left foot. ) Neurologic/Psychiatric: no motor/sensory deficits, alert, normal mood/affect, oriented x 3 Skin: normal color, warm/dry Procedures/Interventions Splinting and Joint Reduction : Pre-Proc Neuro Vasc Exam: normal Post-Proc Neuro Vasc Exam: normal Progress Placed bulky posterior splint to left foot with 4'' ortho glass. Applied xeroform over intact blister prior to splint application. Tolerated well. Progress/Results/Core Measures Results/Orders Lab Results Laboratory Tests Test 02/08/21 20:00 Range/Units White Blood Count 7.1 4.3-11.0 10^3/uL Red Blood Count 3.78 L 4.30-5.52 10^6/uL Hemoglobin 12.6 L 13.3-17.7 g/dL Hematocrit 38 L 40-54 % Mean Corpuscular Volume 102 H 80-99 fL Mean Corpuscular Hemoglobin 33 25-34 pg Mean Corpuscular Hemoglobin Concent 33 32-36 g/dL Red Cell Distribution Width 13.2 10.0-14.5 % Platelet Count 197 130-400 10^3/uL Mean Platelet Volume 10.6 9.0-12.2 fL Immature Granulocyte % (Auto) 0 % Neutrophils (%) (Auto) 74 42-75 % Lymphocytes (%) (Auto) 15 12-44 % Monocytes (%) (Auto) 9 0-12 % Eosinophils (%) (Auto) 1 0-10 % Basophils (%) (Auto) 0 0-10 % Neutrophils # (Auto) 5.3 1.8-7.8 10^3/uL Lymphocytes # (Auto) 1.1 1.0-4.0 10^3/uL Monocytes # (Auto) 0.7 0.0-1.0 10^3/uL Eosinophils # (Auto) 0.1 0.0-0.3 10^3/uL Basophils # (Auto) 0.0 0.0-0.1 10^3/uL Immature Granulocyte # (Auto) 0.0 0.0-0.1 10^3/uL Sodium Level 137 135-145 MMOL/L Potassium Level 4.3 3.6-5.0 MMOL/L Chloride Level 99 98-107 MMOL/L Carbon Dioxide Level 25 21-32 MMOL/L Anion Gap 13 5-14 MMOL/L Blood Urea Nitrogen 18 7-18 MG/DL Creatinine 1.36 H 0.60-1.30 MG/DL Estimat Glomerular Filtration Rate 51 BUN/Creatinine Ratio 13 Glucose Level 119 H 70-105 MG/DL Calcium Level 9.7 8.5-10.1 MG/DL Corrected Calcium 9.5 8.5-10.1 MG/DL Total Bilirubin 2.6 H 0.1-1.0 MG/DL Aspartate Amino Transf (AST/SGOT) 20 5-34 U/L Alanine Aminotransferase (ALT/SGPT) 18 0-55 U/L Alkaline Phosphatase 54 40-136 U/L Total Protein 8.0 6.4-8.2 GM/DL Albumin 4.3 3.2-4.5 GM/DL My Orders Orders - HOLLY GEORGE DIRECTOR STRATEGIC ACCOUNT MANAGEMENT Foot, Left, 3 Views (02/08/21 19:42) Ankle, Left, 3 Views (02/08/21 19:42) Chest 1 View, Ap/Pa Only (02/08/21 19:42) Shoulder, Right, 3 Views (02/08/21 19:42) Cbc With Automated Diff (02/08/21 19:42) Comprehensive Metabolic Panel (02/08/21 19:42) Vital Signs/I&O 02/08/21 02/08/21 02/08/21 19:18 19:18 22:22 Temp 36.6 36.6 36.6 Pulse 80 80 79 Resp 18 20 18 B/P (MAP) 127/78 127/78 (94) 126/81 Pulse Ox 99 100 O2 Delivery Room Air Room Air Room Air Blood Pressure Mean: 94 Progress Progress Note : Progress Note Discussed findings with Dr. Matthews. Recommended placing in bulky posterior splint and NWB. Patient to call his office for follow up. Discussed plan of care with patient and he is agreeable with plan. States he has plenty of walkers/canes at home to help limit WB on his left foot. Diagnostic Imaging Diagonstic Imaging: Xray Comments [facility], [place] NAME: KIMBERLY PAULINO [facility] REC#: [id number] PT STATUS: DEP ER : 1950 PHYSICIAN: HOLLY GEORGE APRN ADMIT DATE: 02/08/21/ER Signed Date of Exam:02/08/21 ANKLE, LEFT, 3 VIEWS EXAM: Ankle, left, 3 views. INDICATION: Left ankle pain. Fall. COMPARISON: 09/06/2016. FINDINGS: Moderate degenerative changes in the left ankle. No fracture in the left ankle. Partially visualized fractures involving the left 1st through 5th metatarsals. Soft tissue swelling about the lateral malleolus. IMPRESSION: 1. No acute radiographic finding in the left ankle. 2. Moderate degenerative changes in the left ankle. 3. Partially visualized fractures involving the 1st through 5th metatarsals. Please see dedicated foot radiographs. Dictated by: Dictated on workstation # [id number] Dict: 02/08/212105 Trans: 02/08/212258 [facility] [id number] Interpreted by: MAT KIM MD Electronically signed by: MAT KIM MD 02/08/212258 Diagonstic Imaging: Xray Comments [facility] [place] NAME: KIMBERLY PAULINO [facility] REC#: [id number] PT STATUS: [facility] : 1950 PHYSICIAN: HOLLY GEORGE APRN ADMIT DATE: 02/08/21/ER Signed Date of Exam:02/08/21 SHOULDER, RIGHT, 3 VIEWS EXAM: Shoulder, right, 3 views. INDICATION: Right shoulder pain. Fall. COMPARISON: Chest radiograph 08/26/2019. FINDINGS: Chronic appearing fracture deformity of the right humeral head is similar to a prior chest radiograph dated 08/26/2019. No acute fracture or malalignment identified. Soft tissue shadows are unremarkable. IMPRESSION: No acute radiographic findings in the right shoulder. Chronic fracture deformity in the right humeral head is stable compared to 08/26/2019. Dictated by: Dictated on workstation # [id number] Dict: 02/08/212115 Trans: 02/08/212258 [facility] [id number] Interpreted by: MAT KIM MD Electronically signed by: MAT KIM MD 02/08/212258 Diagonstic Imaging: Xray Comments [facility] [place] NAME: KIMBERLY PAULINO [facility] REC#: [id number] PT STATUS: [facility] ER : 1950 PHYSICIAN: HOLLY GEORGE DIRECTOR STRATEGIC ACCOUNT MANAGEMENT ADMIT DATE: 02/08/21/ER Signed Date of Exam:02/08/21 CHEST 1 VIEW, AP/PA ONLY EXAM: Chest 1 view, AP/PA only. INDICATION: Chest pain. Fall. COMPARISON: 08/26/2019. FINDINGS: AICD. Normal heart size and central pulmonary vascularity. No focal pulmonary opacity. No pleural effusion or pneumothorax. No acute osseous finding. IMPRESSION: No acute cardiopulmonary finding. Dictated by: Dictated on workstation # [id number] Dict: 02/08/212114 Trans: 02/08/212258 [facility] [phone] Interpreted by: MAT KIM MD Electronically signed by: MAT KIM MD 02/08/212258 Diagonstic Imaging: Xray Comments [facility] [place] NAME: KIMBERLY PAULINO [facility] REC#: [id number] PT STATUS: DEP ER : 1950 PHYSICIAN: HOLLY GEORGE APRN ADMIT DATE: 02/08/21/ER Signed Date of Exam:02/08/21 FOOT, LEFT, 3 VIEWS EXAM: Foot, left, 3 views. INDICATION: Left foot pain. Fall. COMPARISON: None. FINDINGS: Comminuted displaced and foreshortened oblique fracture of the distal left 4th and 5th metatarsals. There are also more mildly displaced and angulated fractures involving the proximal left 1st through 4th metatarsals. There may also be some widening of the distance between the 1st and 2nd metatarsals suspicious for a Lisfranc injury. No radiopaque foreign bodies. IMPRESSION: 1. Multiple fractures of the 1st through 5th metatarsals, as above. 2. There may also be some widening between the 1st and 2nd metatarsal suspicious for a Lisfranc injury. Recommend orthopedic consultation. Dictated by: Dictated on workstation # [id number] Dict: 02/08/212107 Trans: 02/08/212258 [facility] [id number] Interpreted by: MAT KIM MD Electronically signed by: MAT KIM MD 02/08/212258 Departure Impression Primary Impression: Multiple closed fractures of metatarsal bone of left foot Additional Impression: Blister Disposition: 01 HOME, SELF-CARE Condition: Improved Departure-Patient Inst. Decision time for Depature: 22:01 Referrals: SHAYY MUÑOZ MD (PCP/Family) Primary Care Physician OZ MATTHEWS MD Patient Instructions: Foot Fracture ED, Splint Care Add. Discharge Instructions: Plan: 1. Follow up with Dr. Matthews. Please call office to schedule appointment. 2. May take Tylneol or Ibuprofen as needed for pain per package. 3. Keep affected site elevated above your heart as much as possible to help reduce swelling and pain. 4. Apply ice 20 minutes at a time 4-6x per day. Keep splint clean and dry. If you shower, cover with bag or plastic wrap. 5. Do not put any weight on your left lower extremity. Use your walker at home to transfer. 6. Return to ER for any new, worsening, or concerning symptoms. 7. May take Hydrocodone 5/325mg every 6 hours as needed for severe pain. All discharge instructions reviewed with patient and/or family. Voiced understanding. Scripts Hydrocodone/Acetaminophen (Hydrocodone-Acetamin 5-325 mg) 1 Each Tablet 1 TAB PO Q6H PRN for PAIN-MODERATE (5-7), #20 TAB 0 Refills Prov: HOLLY GEORGE DIRECTOR STRATEGIC ACCOUNT MANAGEMENT 02/08/21 HOLLY GEORGE DIRECTOR STRATEGIC ACCOUNT MANAGEMENT Feb 08, 2021 19:47
[2021-02-08 20:11] LABS: BASOPHILS % (AUTO) 0 % (0-10); EOSINOPHILS # (AUTO) 0.1 10^3/uL (0.0-0.3); EOSINOPHILS % (AUTO) 1 % (0-10); HEMATOCRIT 38 % (40-54); HEMOGLOBIN 12.6 g/dL (13.3-17.7); LYMPHOCYTES # (AUTO) 1.1 10^3/uL (1.0-4.0); LYMPHOCYTES % (AUTO) 15 % (12-44); MEAN CORPUSCULAR HEMOGLOBIN 33 pg (25-34); MEAN CORPUSCULAR HGB CONC 33 g/dL (32-36); MEAN CORPUSCULAR VOLUME 102 fL (80-99); MEAN PLATELET VOLUME 10.6 fL (9.0-12.2); MONOCYTES # (AUTO) 0.7 10^3/uL (0.0-1.0); MONOCYTES % (AUTO) 9 % (0-12); NEUTROPHILS # (AUTO) 5.3 10^3/uL (1.8-7.8); NEUTROPHILS % (AUTO) 74 % (42-75); PLATELET COUNT 197 10^3/uL (130-400); WHITE BLOOD COUNT 7.1 10^3/uL (4.3-11.0)
[2021-02-08 20:24] LABS: ALBUMIN 4.3 GM/DL (3.2-4.5); POTASSIUM 4.3 MMOL/L (3.6-5.0)
[2021-02-08 20:25] LABS: CALCIUM 9.7 MG/DL (8.5-10.1)
[2021-02-08 20:28] LABS: BILIRUBIN,TOTAL 2.6 MG/DL (0.1-1.0)
[2021-02-08 20:30] LABS: CREATININE SERUM 1.36 MG/DL (0.60-1.30)
--- NOTE | 2021-02-08 21:11 | Diagnostic Imaging Report ---
EXAM: Ankle, left, 3 views. INDICATION: Left ankle pain. Fall. COMPARISON: 09/06/2016. FINDINGS: Moderate degenerative changes in the left ankle. No fracture in the left ankle. Partially visualized fractures involving the left 1st through 5th metatarsals. Soft tissue swelling about the lateral malleolus. IMPRESSION: 1. No acute radiographic finding in the left ankle. 2. Moderate degenerative changes in the left ankle. 3. Partially visualized fractures involving the 1st through 5th metatarsals. Please see dedicated foot radiographs. Dictated by: Dictated on workstation # [id number]
--- NOTE | 2021-02-08 21:15 | Diagnostic Imaging Report ---
EXAM: Foot, left, 3 views. INDICATION: Left foot pain. Fall. COMPARISON: None. FINDINGS: Comminuted displaced and foreshortened oblique fracture of the distal left 4th and 5th metatarsals. There are also more mildly displaced and angulated fractures involving the proximal left 1st through 4th metatarsals. There may also be some widening of the distance between the 1st and 2nd metatarsals suspicious for a Lisfranc injury. No radiopaque foreign bodies. IMPRESSION: 1. Multiple fractures of the 1st through 5th metatarsals, as above. 2. There may also be some widening between the 1st and 2nd metatarsal suspicious for a Lisfranc injury. Recommend orthopedic consultation. Dictated by: Dictated on workstation # [id number]
--- NOTE | 2021-02-08 21:17 | Diagnostic Imaging Report ---
EXAM: Chest 1 view, AP/PA only. INDICATION: Chest pain. Fall. COMPARISON: 08/26/2019. FINDINGS: AICD. Normal heart size and central pulmonary vascularity. No focal pulmonary opacity. No pleural effusion or pneumothorax. No acute osseous finding. IMPRESSION: No acute cardiopulmonary finding. Dictated by: Dictated on workstation # [id number]
--- NOTE | 2021-02-08 21:20 | Diagnostic Imaging Report ---
EXAM: Shoulder, right, 3 views. INDICATION: Right shoulder pain. Fall. COMPARISON: Chest radiograph 08/26/2019. FINDINGS: Chronic appearing fracture deformity of the right humeral head is similar to a prior chest radiograph dated 08/26/2019. No acute fracture or malalignment identified. Soft tissue shadows are unremarkable. IMPRESSION: No acute radiographic findings in the right shoulder. Chronic fracture deformity in the right humeral head is stable compared to 08/26/2019. Dictated by: Dictated on workstation # [id number]
[2021-02-08] MEDS ORDERED: ACHD5005 PO (22:05)
[2021-02-08 22:22] VITALS: BP 126/81
== END 2021-02-08 22:22 | disposition home or self-care (01) ==
LOC: EDUNIT# 18:52 → ER 18:54
DX: S92.312A Displaced fracture of first metatarsal bone, left foot, initial encounter for closed fracture (principal); S92.322A Displaced fracture of second metatarsal bone, left foot, initial encounter for closed fracture; S92.332A Displaced fracture of third metatarsal bone, left foot, initial encounter for closed fracture; S92.342A Displaced fracture of fourth metatarsal bone, left foot, initial encounter for closed fracture; S92.352A Displaced fracture of fifth metatarsal bone, left foot, initial encounter for closed fracture; S90.02XA Contusion of left ankle, initial encounter; G47.30 Sleep apnea, unspecified; I10 Essential (primary) hypertension; I25.10 Atherosclerotic heart disease of native coronary artery without angina pectoris; K21.9 Gastro-esophageal reflux disease without esophagitis; E11.9 Type 2 diabetes mellitus without complications; F41.9 Anxiety disorder, unspecified; F32.9 Major depressive disorder, single episode, unspecified; Z86.73 Personal history of transient ischemic attack (TIA), and cerebral infarction without residual deficits; Z87.891 Personal history of nicotine dependence; Z79.899 Other long term (current) drug therapy; Z79.84 Long term (current) use of oral hypoglycemic drugs; Z79.82 Long term (current) use of aspirin; Z79.01 Long term (current) use of anticoagulants; W19.XXXA Unspecified fall, initial encounter; Y92.009 Unspecified place in unspecified non-institutional (private) residence as the place of occurrence of the external cause
CPT/HCPCS: 29515; 36415; 71045; 73030; 73610; 73630; 80053; 85025

== ENCOUNTER → 2021-02-14 | Outpatient (CLI) | payer MEDICARE ==
[~2021-02-14] MED LIST changes: +ACHD5005 PO; -LISI-729 PO; +LISI5TAB20 PO; +MONT-40 PO; -MONT10TA32 PO; +POTA-169 PO; -POTA10TA36 PO; +POTA10TA37 PO; -POTA20TA8 PO
== END ==
LOC: ORTHO 14:28
PROVIDERS: ATTEND Orthopaedic Surgery
DX: S92.302A Fracture of unspecified metatarsal bone(s), left foot, initial encounter for closed fracture (principal); E11.9 Type 2 diabetes mellitus without complications; I11.0 Hypertensive heart disease with heart failure; I50.22 Chronic systolic (congestive) heart failure; E78.2 Mixed hyperlipidemia; E66.9 Obesity, unspecified; X58.XXXA Exposure to other specified factors, initial encounter
CPT/HCPCS: 99203

== ENCOUNTER → 2021-02-21 | Outpatient (CLI) | payer MEDICARE | LOC: ORTHO 16:29 | PROVIDERS: ATTEND Orthopaedic Surgery | DX: S92.302A Fracture of unspecified metatarsal bone(s), left foot, initial encounter for closed fracture (principal); X58.XXXA Exposure to other specified factors, initial encounter | CPT/HCPCS: 99212 ==

== ENCOUNTER → 2021-03-14 | Outpatient (CLI) | payer MEDICARE ==
--- NOTE | 2021-03-14 15:02 | Diagnostic Imaging Report ---
INDICATION: Followup left foot fracture with pain. FINDINGS: The transverse fractures of the base of the 1st through 4th metatarsals as well as the distal 5th metatarsal are again noted. There has been bony reabsorption along the fracture lines with only minimal bony callus developing. There is again question of slight widening between the base of the 1st and 2nd metatarsals. IMPRESSION: There has been early healing of the multi fractures of the right foot although fracture lines are still widely visible. Dictated by: Dictated on workstation # [id number]
== END ==
LOC: ORTHO 12:48
PROVIDERS: ATTEND Orthopaedic Surgery
DX: S92.302D Fracture of unspecified metatarsal bone(s), left foot, subsequent encounter for fracture with routine healing (principal); X58.XXXD Exposure to other specified factors, subsequent encounter
CPT/HCPCS: 73630; G0463; 99212

== ENCOUNTER → 2021-04-18 | Outpatient (CLI) | payer MEDICARE ==
[~2021-04-18] MED LIST changes: +CICL6.6S22 TP; -CICL6.6S5 TP
--- NOTE | 2021-04-18 14:00 | Diagnostic Imaging Report ---
Left foot at 134 INDICATION: Left foot pain 3 views were obtained. The recent exam of 03/14/2021 noted transverse fractures of the bases of the 1st through 4th metatarsals as well as a fracture of the distal 5th metatarsal. Those fractures are again evident. The main fracture fragments have not changed significantly in alignment. There is healing callus formation present but the fracture lines are still clearly evident. The prior exam also reveals a fracture of the neck of the 4th metatarsal. In addition there did appear that there has been a prior surgical procedure involving the PIP joint of the 4th digit. Those findings are again noted. The Lisfranc joint does not appear as widened as on the prior exam. No other fracture or acute bony abnormality is appreciated. The soft tissues are unremarkable. IMPRESSION: 1. The fractures of the forefoot noted previously are again evident. There is healing callus formation present about the fracture sites and the main fracture fragments are similar in alignment to the prior exam. The fractures however have not yet completely healed. 2. There is no acute bony abnormality noted otherwise. Dictated by: Dictated on workstation # [id number]
== END ==
LOC: ORTHO 13:16
PROVIDERS: ATTEND Orthopaedic Surgery
DX: S92.312D Displaced fracture of first metatarsal bone, left foot, subsequent encounter for fracture with routine healing (principal); S92.322D Displaced fracture of second metatarsal bone, left foot, subsequent encounter for fracture with routine healing; S92.332D Displaced fracture of third metatarsal bone, left foot, subsequent encounter for fracture with routine healing; S92.342D Displaced fracture of fourth metatarsal bone, left foot, subsequent encounter for fracture with routine healing; S92.352D Displaced fracture of fifth metatarsal bone, left foot, subsequent encounter for fracture with routine healing; X58.XXXD Exposure to other specified factors, subsequent encounter
CPT/HCPCS: 73630; G0463; 99212

== ENCOUNTER → 2021-05-30 | Outpatient (CLI) | payer MEDICARE ==
--- NOTE | 2021-05-30 17:24 | Diagnostic Imaging Report ---
INDICATION: Left foot pain. TIME OF EXAM: 2:07 PM CORRELATION is made with prior radiograph from 04/18/2021. Fractures at the bases of the 1st through 4th metatarsals are again noted with some callus formation at the fracture sites but fracture lines remain clearly visible. There are fractures of the distal 4th and 5th metatarsals, as well. Fracture lines remain clearly visible. Postop changes of the distal aspect of the proximal phalanx 4th digit is noted. There is pes planus deformity noted. Midfoot and hindfoot are otherwise unremarkable. IMPRESSION: Metatarsal fractures, similar in appearance to the exam from 04/18/2021. Fracture lines remain clearly visible. Dictated by: Dictated on workstation # [id number]
== END ==
LOC: ORTHO 13:17
PROVIDERS: ATTEND Orthopaedic Surgery
DX: Z09 Encounter for follow-up examination after completed treatment for conditions other than malignant neoplasm (principal); S92.302D Fracture of unspecified metatarsal bone(s), left foot, subsequent encounter for fracture with routine healing; X58.XXXD Exposure to other specified factors, subsequent encounter
CPT/HCPCS: 73630; G0463; 99213

== ENCOUNTER → 2021-11-15 | Outpatient (CLI) | payer MEDICARE ==
[~2021-11-15] MED LIST changes: +CATHETER FLUSH 10 ML SYR IV PRN; -GLUC1TAB20 PO; +GLUC1TAB21 PO; +HOLD METFORMIN - RECEIVED CONTRAST 20 ML VIAL IV SCH; +IOHEXOL 350 MG/ML 100 ML (OMNIPAQUE 350) VIAL IV ONE; +NS 100 ML (IVPB) BAG IV ONE
[2021-11-15 11:57] LABS: CREATININE SERUM 1.72 MG/DL (0.60-1.30)
--- NOTE | 2021-11-15 13:21 | Diagnostic Imaging Report ---
PROCEDURE: CT chest with contrast only. TECHNIQUE: Multiple contiguous axial images were obtained through the chest after administration of intravenous contrast. Auto Exposure Controls were utilized during the CT exam to meet ALARA standards for radiation dose reduction. INDICATION: Pain, palpable abnormality in the right shoulder. COMPARISON: No priors. FINDINGS: The partially visualized structures of the shoulders bilaterally appear unremarkable. Their superior components are above the field of view. No rib fracture deformity. The sternum and manubrium are unremarkable. There are old appearing rib deformities. An acute appearing chest wall abnormality is not identified. There are no findings of edema or pneumonia. No suspicious lung mass. No concerning pulmonary nodularity. There is no axillary, hilar, or mediastinal lymphadenopathy. There are coronary artery atherosclerotic vascular calcifications. The aorta is nonaneurysmal. There are degenerative changes throughout the spine with some old appearing wedging at T4 and T10 as chronic findings. The visualized upper abdomen shows tiny layering gallstones with no adrenal mass or acute appearing abnormality. IMPRESSION: There are some old rib deformities, nonaneurysmal atherosclerosis, degenerative changes, and old appearing thoracic endplate compressions. An acute appearing abnormality is not identified and there are no findings felt suggestive of neoplasm. Dictated by: Dictated on workstation # [id number]
== END ==
LOC: RAD 11:28
PROVIDERS: ATTEND Surgery
DX: M48.54XS Collapsed vertebra, not elsewhere classified, thoracic region, sequela of fracture (principal); M19.011 Primary osteoarthritis, right shoulder; I70.8 Atherosclerosis of other arteries
CPT/HCPCS: 36415; 71260; 82565; 84520

== ENCOUNTER → 2021-12-11 | Outpatient (CLI) | payer MEDICARE ==
[~2021-12-11] MED LIST changes: -CATHETER FLUSH 10 ML SYR IV PRN; +GADOTERATE 0.5 MMOL/ML (CLARISCAN) 20 ML VIAL IV ONE; -HOLD METFORMIN - RECEIVED CONTRAST 20 ML VIAL IV SCH; -IOHEXOL 350 MG/ML 100 ML (OMNIPAQUE 350) VIAL IV ONE; -NS 100 ML (IVPB) BAG IV ONE; +POTA-177 PO; -POTA10TA37 PO
--- NOTE | 2021-12-11 14:30 | Diagnostic Imaging Report ---
INDICATION: Pre-MRI screening. TIME OF EXAM: 2:27 p.m. COMPARISON: Correlation is made with prior chest from 02/08/2021. FINDINGS: Heart size is normal. Cardiac defibrillator is in place. No abandoned leads are identified. Lungs are clear. There is no effusion or pneumothorax. IMPRESSION: No evidence of abandoned defibrillator leads to preclude MRI. Dictated by: Dictated on workstation # [id number]
--- NOTE | 2021-12-11 16:29 | Diagnostic Imaging Report ---
PROCEDURE: MRI upper extremity any joint with and without contrast right. TECHNIQUE: Multiplanar, multisequence pre and post contrast-enhanced MRI of the right upper extremity was accomplished. INDICATION: Mass of the soft tissues in the right shoulder. COMPARISON: None FINDINGS: Superior to the right shoulder joint, there is a multiloculated cystic structure with thin peripheral enhancement. This measures up to 5.8 x 3.3 x 4.9 cm in size. No acute fracture is seen in the right shoulder. There is superior migration of the humeral head up to the acromion with remodeling of the acromion including fragmentation and thinning. There is an os acromiale. There are severe degenerative changes in the acromioclavicular joint. There is a small right shoulder joint effusion. There are moderate to severe degenerative changes in the glenohumeral joint. There is a full-thickness tear of the supraspinatus tendon, with medial retraction to the glenohumeral joint. There appears to be full-thickness tear of the infraspinatus tendon and partial tearing of the teres minor tendon. The subscapularis tendon demonstrates marked tendinosis. There is severe atrophy throughout the rotator cuff musculature. The long head of the biceps tendon appears to be torn and retracted distally beyond the bicipital groove. Glenoid labrum demonstrates degeneration. No para labral cyst is seen. The coracoclavicular and coracoacromial ligaments appear to be intact. No other masses or fluid collections are seen about the right shoulder. IMPRESSION: 1. Superior right shoulder mass corresponds with an acromioclavicular joint cyst. 2. Large full-thickness tear in the right rotator cuff with marked muscular atrophy. 3. Superior migration of the humeral head into the acromion with remodeling and fragmentation of the acromion. 4. Complete retracted tear of the long head of the biceps tendon. 5. Severe degenerative changes in the acromioclavicular joint. Dictated by: Dictated on workstation # [id number]
== END ==
LOC: RAD 14:45
PROVIDERS: ATTEND Surgery
DX: S46.111A Strain of muscle, fascia and tendon of long head of biceps, right arm, initial encounter (principal); M75.121 Complete rotator cuff tear or rupture of right shoulder, not specified as traumatic; M19.011 Primary osteoarthritis, right shoulder; M62.521 Muscle wasting and atrophy, not elsewhere classified, right upper arm; X58.XXXA Exposure to other specified factors, initial encounter
CPT/HCPCS: 71045; 73223

== ENCOUNTER → 2022-01-04 | Outpatient (CLI) | payer MEDICARE ==
[~2022-01-04] MED LIST changes: -GADOTERATE 0.5 MMOL/ML (CLARISCAN) 20 ML VIAL IV ONE
== END ==
LOC: ORTHO 03:15
PROVIDERS: ATTEND Orthopaedic Surgery
DX: M67.411 Ganglion, right shoulder (principal); I11.0 Hypertensive heart disease with heart failure; I50.22 Chronic systolic (congestive) heart failure; E11.9 Type 2 diabetes mellitus without complications; E78.2 Mixed hyperlipidemia; E66.9 Obesity, unspecified
CPT/HCPCS: 99213

== ENCOUNTER → 2022-03-14 | Outpatient (CLI) | payer MEDICARE ==
[2022-03-14 14:25] LABS: POTASSIUM 4.4 MMOL/L (3.6-5.0)
[2022-03-14 14:26] LABS: ALBUMIN 4.5 GM/DL (3.2-4.5)
[2022-03-14 14:27] LABS: CALCIUM 9.4 MG/DL (8.5-10.1)
[2022-03-14 14:30] LABS: BILIRUBIN,TOTAL 2.5 MG/DL (0.1-1.0)
[2022-03-14 14:32] LABS: CREATININE SERUM 1.62 MG/DL (0.60-1.30)
== END ==
LOC: CARD 13:53
PROVIDERS: ATTEND Physician Assistant
DX: I11.9 Hypertensive heart disease without heart failure (principal); I35.1 Nonrheumatic aortic (valve) insufficiency; E78.2 Mixed hyperlipidemia; E11.9 Type 2 diabetes mellitus without complications; E66.9 Obesity, unspecified
CPT/HCPCS: 80053; 80061; C8929; 36415; 93306

== ENCOUNTER → 2022-06-19 | Outpatient (CLI) | payer MEDICARE | LOC: ORTHO 12:34 | PROVIDERS: ATTEND Orthopaedic Surgery | DX: M67.411 Ganglion, right shoulder (principal); I10 Essential (primary) hypertension; E66.9 Obesity, unspecified; E11.9 Type 2 diabetes mellitus without complications | CPT/HCPCS: 99213 ==

== ENCOUNTER 2022-06-28 05:37 | Outpatient (CLI) | payer MEDICARE ==
[~2022-06-28] VITALS: Ht 190.5 cm; Wt 111.1 kg
[2022-06-28] MEDS ORDERED: IBUP-2185 PO (17:03)
[2022-06-28] MEDS ORDERED: ATOR20TA66 PO (17:03)
== END 2022-06-28 17:10 ==
LOC: PREOP 05:37
PROVIDERS: ATTEND Orthopaedic Surgery
DX: Z01.818 Encounter for other preprocedural examination (principal)

== ENCOUNTER 2022-07-05 05:42 | Outpatient (CLI) | payer MEDICARE ==
[~2022-07-05] VITALS: Ht 190.5 cm; Wt 111.1 kg
[~2022-07-05 05:42] MED LIST changes: +ATOR20TA66 PO; +IBUP-2185 PO
== END 2022-07-06 08:54 | disposition home or self-care (01) ==
LOC: PREOP 05:42
PROVIDERS: ATTEND Orthopaedic Surgery
DX: Z01.818 Encounter for other preprocedural examination (principal)

== ENCOUNTER 2022-07-13 05:53 | Day surgery (SDC) | payer MEDICARE ==
[~2022-07-13] VITALS: Ht 190.5 cm; Wt 111.1 kg
[2022-07-13] VITALS (11 sets, daily range): BP systolic 102–141; BP diastolic 69–89
[2022-07-13] MEDS ORDERED: ceFAZolin INJECTION 2,000 MG ONE (06:52)
[2022-07-13] MEDS ORDERED: NS (IVPB) 50 ML ONE (06:53)
[2022-07-13] MEDS ORDERED: fentaNYL INJ 100 MCG/2 ML AMP ONE (06:58)
[2022-07-13] MEDS ORDERED: proPOfol 200 MG/20 ML (DIPRIVAN) VIAL IV ONE (06:58)
[2022-07-13] MEDS ORDERED: ONDANSETRON 4 MG/2 ML (SDV) Z0FRAN ONE (06:58)
[2022-07-13] MEDS ORDERED: LIDOCAINE PF 2% 5 ML (XYLOCAINE) VIAL ONE (06:58)
[2022-07-13] MEDS ORDERED: ceFAZolin INJECTION 2,000 MG in NS (IVPB) 50 ML IV ONE (07:00)
[2022-07-13] MEDS ORDERED: CATHETER FLUSH 10 ML SYR IVP PRN (07:00)
[2022-07-13] MEDS ORDERED: LACTATED RINGERS 1,000 ML IV PRN (07:00)
[2022-07-13] MEDS ORDERED: BUPIVACAINE 0.25% 30 ML (SENSORCAINE) VIAL ONE (07:29)
[2022-07-13] MEDS ORDERED: BUPIVACAINE 0.25% 10 ML (SENSORCAINE) VIAL ONE (07:29)
[2022-07-13] MEDS ORDERED: morphine INJ 10 MG/ML 1ML (SYR OR VIAL) IVP ONE (07:45)
[2022-07-13] MEDS ORDERED: HYDROmorphone 2 MG/ML VIAL (DILAUDID) IV ONE (07:45)
[2022-07-13] MEDS ORDERED: ONDANSETRON 4 MG/2 ML (SDV) Z0FRAN IVP PRN (07:45)
--- NOTE | 2022-07-13 08:04 | Progress Note-Pre Operative ---
Pre-Operative Progress Note Date of Available H&P: Jun 19, 2022 Date H&P Reviewed: Jul 13, 2022 Time H&P Reviewed: 07:50 History & Physical: H&P Reviewed, Patient Examed, No changes noted Pre-Operative Diagnosis: Right Shoulder Ganglion Cyst OZ HAMILTON MD Jul 13, 2022 08:04
[2022-07-13] MEDS ORDERED: PHENYLEPHRINE 100 MCG/ML 10 ML (ANESTHESIA) SYR ONE (08:32)
[2022-07-13] MEDS ORDERED: SEVOFLURANE (ULTANE) 15 ML INHAL SOLN ONE (09:13)
--- NOTE | 2022-07-13 09:22 | Operative Report - Ortho ---
Operative Report Surgeon (s)/Van Loader (s) Surgeon OZ HAMILTON MD Van Loader n/a Pre-Operative Diagnosis Right Shoulder Ganglion Cyst Post-Operative Diagnosis same Operative Report Date of Procedure: Jul 13, 2022 Name of Procedure Performed: Excision of Right Shoulder Ganglion Cyst Description & Findings After obtaining informed consent and marking the patient in the preoperative holding area, the patient did receive intravenous antibiotics and was taken to the operating room. General anesthesia was induced. Surgical timeout was taken. The right upper extremity was prepped and draped in the usual sterile fashion. Incision was made over the superior portion of the shoulder. Sharp dissection was carried down to the cyst. Scissors and pickups were then used to dissect circumferentially. Electrocautery was used to lift the cyst from it's bed. Stalk was identified and cauterized. Cyst was removed and sent for pathology. Wound was washed with normal saline and closed with 2-0 vicryl and tatiana. Wound was dressed with xeroform, 4x4s, ABD, and tape. Patient tolera ken the procedure well and was stable to the recovery room. Anesthesia Type General Estimated Blood Loss 50 mL Specimen(s) collected/removed Cyst sent for pathology OZ HAMILTON MD Jul 13, 2022 09:22
[2022-07-13] MEDS ORDERED: OXYC5TAB PO (09:25)
--- NOTE | 2022-07-13 10:07 | Anesthesia-General Post-Op ---
General Patient Condition Mental Status/LOC: Same as Preop Cardiovascular: Satisfactory Nausea/Vomiting: Absent Respiratory: Satisfactory Pain: Controlled Complications: Absent Post Op Complications Complications None Follow Up Care/Instructions Patient Instructions None needed. Anesthesia/Patient Condition Patient Condition Patient is awake in PACU and doing well, no complaints, stable vital signs, no apparent adverse anesthesia problems. No complications reported per nursing. ALEXANDRU CLARK DO Jul 13, 2022 10:06
== END 2022-07-13 11:20 | disposition home or self-care (01) ==
LOC: SDC 05:53
PROVIDERS: ATTEND Orthopaedic Surgery
DX: M67.411 Ganglion, right shoulder (principal); E66.9 Obesity, unspecified; Z68.31 Body mass index [BMI] 31.0-31.9, adult; Z87.891 Personal history of nicotine dependence
CPT/HCPCS: 82947; 87081

== ENCOUNTER → 2022-07-25 | Outpatient (CLI) | payer MEDICARE ==
[~2022-07-25] MED LIST changes: +OXYC5TAB PO
== END ==
LOC: ORTHO 13:25
PROVIDERS: ATTEND Orthopaedic Surgery
DX: Z47.89 Encounter for other orthopedic aftercare (principal)

== ENCOUNTER → 2022-08-14 | Outpatient (CLI) | payer MEDICARE | LOC: ORTHO 13:55 | PROVIDERS: ATTEND Orthopaedic Surgery | DX: Z47.89 Encounter for other orthopedic aftercare (principal); E11.9 Type 2 diabetes mellitus without complications; I11.0 Hypertensive heart disease with heart failure; I50.22 Chronic systolic (congestive) heart failure; E78.2 Mixed hyperlipidemia; E66.9 Obesity, unspecified ==

== ENCOUNTER → 2022-08-28 | Outpatient (CLI) | payer MEDICARE | LOC: ORTHO 15:05 | PROVIDERS: ATTEND Orthopaedic Surgery | DX: Z48.89 Encounter for other specified surgical aftercare (principal); I11.0 Hypertensive heart disease with heart failure; I50.22 Chronic systolic (congestive) heart failure; E11.9 Type 2 diabetes mellitus without complications; I65.29 Occlusion and stenosis of unspecified carotid artery ==

== ENCOUNTER → 2022-09-11 | Outpatient (CLI) | payer MEDICARE | LOC: ORTHO 12:15 | PROVIDERS: ATTEND Orthopaedic Surgery | DX: Z09 Encounter for follow-up examination after completed treatment for conditions other than malignant neoplasm (principal); M67.411 Ganglion, right shoulder | CPT/HCPCS: 99213 ==

== ENCOUNTER → 2022-11-06 | Outpatient (CLI) | payer MEDICARE | LOC: ORTHO 13:27 | PROVIDERS: ATTEND Orthopaedic Surgery | DX: M96.843 Postprocedural seroma of a musculoskeletal structure following other procedure (principal) | CPT/HCPCS: 99213 ==

== ENCOUNTER → 2023-01-29 | Outpatient (CLI) | payer MEDICARE ==
[~2023-01-29] MED LIST changes: -GABA-490 PO; +GABA-491 PO; +OXC5T PO
== END ==
LOC: ORTHO 12:48
PROVIDERS: ATTEND Orthopaedic Surgery
DX: Z47.89 Encounter for other orthopedic aftercare (principal)
CPT/HCPCS: 99213

== ENCOUNTER 2023-01-30 05:26 | Outpatient (CLI) | payer MEDICARE ==
[~2023-01-30] VITALS: Ht 190.5 cm; Wt 121.4 kg
[~2023-01-30 05:26] MED LIST changes: -OXC5T PO
== END 2023-01-31 11:52 | disposition home or self-care (01) ==
LOC: PREOP 05:26
PROVIDERS: ATTEND Orthopaedic Surgery
DX: Z01.818 Encounter for other preprocedural examination (principal)

== ENCOUNTER 2023-02-04 10:00 | Day surgery (SDC) | payer MEDICARE ==
[2023-02-04] VITALS (10 sets, daily range): BP systolic 107–137; BP diastolic 73–98
[~2023-02-04] VITALS: Ht 190.5 cm; Wt 121.4 kg
[2023-02-04] MEDS: LACTATED RINGERS 1,000 ML 1,000 ML IV PRN ×2 (10:41→14:07)
[2023-02-04] MEDS ORDERED: LIDOCAINE 2% w/EPI 1:100,000 20 ML VIAL ONE (11:07)
[2023-02-04] MEDS ORDERED: proPOfol INJECTION 200 MG/20 ML VIAL IV ONE (12:19)
[2023-02-04] MEDS ORDERED: LIDOCAINE PF 2% 5 ML VIAL ONE (12:19)
[2023-02-04] MEDS ORDERED: ROCURONIUM 50 MG/5 ML VIAL IV ONE (12:19)
[2023-02-04] MEDS ORDERED: fentaNYL INJECTION 100 MCG/2 ML VIAL ONE ×2 (12:19→13:52)
--- NOTE | 2023-02-04 12:24 | Progress Note-Pre Operative ---
Pre-Operative Progress Note Date of Available H&P: Jan 29, 2023 Date H&P Reviewed: Feb 04, 2023 Time H&P Reviewed: 12:10 History & Physical: H&P Reviewed, Patient Examed, No changes noted Pre-Operative Diagnosis: Right Shoulder Seroma OZ HAMILTON MD Feb 04, 2023 12:23
[2023-02-04] MEDS ORDERED: ONDANSETRON INJECTION 4 MG/2 ML (SDV) ONE (12:54)
[2023-02-04] MEDS ORDERED: SEVOFLURANE (ULTANE) 15 ML INHAL SOLN ONE ×2 (12:54→13:34)
[2023-02-04] MEDS ORDERED: ceFAZolin INJECTION 1,000 MG ONE (12:55)
[2023-02-04] MEDS ORDERED: ceFAZolin INJECTION 2,000 MG IV ONE (12:58)
--- NOTE | 2023-02-04 13:37 | Operative Report - Ortho ---
Operative Report Surgeon (s)/[employer] Developer (s) Surgeon OZ HAMILTON MD [employer] n/a Pre-Operative Diagnosis Right Shoulder Seroma Post-Operative Diagnosis same Operative Report Date of Procedure: Feb 04, 2023 Name of Procedure Performed: Incision and Drainage of Right Shoulder Seroma Description & Findings After obtaining informed consent and marking the patient in the preop holding area, patient was brought to the operating room and general anesthesia was induced. Surgical timeout was taken. Right upper extremity was prepped and draped in the usual sterile fashion. Incision was made superiorly over prior scar and had immediate return of yellow viscous fluid. Scar was opened further and swab was obtained and sent for culture. Scissors and pickups were used to debride the hess/borders of the seroma. This tissue was excised and removed. Pulsatile lavage was used to irrigate the area of the seroma. 0 vicryl suture was used in deep fashion to close the potential space. 3-0 vicryl was used to close the incision subcutaneously and the skin was closed with 3-0 nylon. Wound was dressed with xeroform, 4x4s, ABD, and foam tape. Patient tolerated the procedure well and was stable to the recovery room. Anesthesia Type General Estimated Blood Loss minimal Packing none. Specimen(s) collected/removed Swab for gram stain, aerobic, and anaerobic culture OZ HAMILTON MD Feb 04, 2023 13:37
[2023-02-04] MEDS ORDERED: OXC5T PO (13:40)
--- NOTE | 2023-02-04 13:44 | Anesthesia-General Post-Op ---
General Patient Condition Mental Status/LOC: Same as Preop Cardiovascular: Satisfactory Nausea/Vomiting: Absent Respiratory: Satisfactory Pain: Controlled Complications: Absent Post Op Complications Complications None Follow Up Care/Instructions Patient Instructions None needed. Anesthesia/Patient Condition Patient Condition Patient is doing well, no complaints, stable vital signs, no apparent adverse anesthesia problems. No complications reported per nursing. DONA MENDEZ CRNA Feb 04, 2023 13:44
[2023-02-04] MEDS ORDERED: fentaNYL INJECTION 100 MCG/2 ML VIAL IVP ONE (13:45)
[2023-02-04] MEDS ORDERED: ONDANSETRON INJECTION 4 MG/2 ML (SDV) IVP PRN (13:45)
== END 2023-02-04 15:40 | disposition home or self-care (01) ==
LOC: SDC 10:00
PROVIDERS: ATTEND Orthopaedic Surgery
DX: M96.842 Postprocedural seroma of a musculoskeletal structure following a musculoskeletal system procedure (principal)
CPT/HCPCS: 82947; 87070; 87075; 87081; 87205

== ENCOUNTER → 2023-02-19 | Outpatient (CLI) | payer MEDICARE ==
[~2023-02-19] MED LIST changes: +OXC5T PO
== END ==
LOC: ORTHO 11:18
PROVIDERS: ATTEND Orthopaedic Surgery
DX: Z47.89 Encounter for other orthopedic aftercare (principal); I10 Essential (primary) hypertension; E11.9 Type 2 diabetes mellitus without complications; E78.2 Mixed hyperlipidemia; E66.9 Obesity, unspecified